=== PATIENT | female | born 1940 | race Caucasian/White ===

== ENCOUNTER 2016-09-18 14:18 | Inpatient (IN) | payer MEDICARE, OTHER ==
[~2016-09-18] VITALS: Ht 157.5 cm; Wt 45.4 kg
--- NOTE | 2016-09-18 14:25 | Emergency Room Report ---
History of Present Illness General Source: Patient, EMS Present Illness HPI The patient presents with dyspnea. This began last Saturday. She's been having trouble weekend. This morning her oxygen saturation was 60. She usually runs between 87 and 93 on oxygen. She does have a nebulizer and to get treated at this rehabilitation facility where she is. She denies any fevers or productive cough. She states that she received IV Lasix this morning. She has a history of COPD and CHF. She currently not taking prednisone. She believes this is the worst her breathing is ever been. She's never been intubated. Patient denies any chest pain, nausea, vomiting, diarrhea, dysuria. She has had back pain and neck pain chronic. Denies any anxiety or depression at this time. She's been moving her bowels normally. There is some bruising. When the daughter arrived she states the patient had DVT a year ago. Was in her legs. His request for a short period of time and he stopped it. She is allergic to contrast dye and as he was recently a different type of study was done in July that excluded on embolus. She had atrial fibrillation in the hospital felt to be related to albuterol. This has been treated with metoprolol. Also the daughter later claims that she is currently taking Xarelto due to the a fib. Allergies: Coded Allergies: IODINE (Verified Allergy, Unknown, 09/18/16) PENICILLINS (Unverified Allergy, Unknown, 09/18/16) SULFACETAMIDE (Verified Allergy, Unknown, 09/18/16) Uncoded Allergies: PENICILLIN (Allergy, Unknown, 09/18/16) Patient History Past Medical History: see triage record Past Surgical History: natanael, other - Back to me and nephrectomy Social History Narrative Home - with in home caretakers and daughter Reviewed Nursing Documentation: PMH: Agreed, PSxH: Agreed Review of Systems All Other Systems: negative except mentioned in HPI Physical Exam Vital Signs Date Time Temp Pulse Resp B/P Pulse Ox O2 Delivery O2 Flow Rate FiO2 09/18/16 14:19 98.8 61 18 119/57 95 Room Air Sp02 EP Interpretation: reviewed, abnormal - low, but normal for this patient - On O2 as interpreted by me General Appearance: no apparent distress, alert, GCS 15, Chronically Ill Head: normocephalic Eyes: bilateral eye PERRL, bilateral eye normal inspection ENT: moist mucus membranes Neck: supple Respiratory: decreased breath sounds, other - increased expiratory phase Cardiovascular #1: regular rate, rhythm, edema - trace bilat Cardiovascular #2: 2+ radial (R) Gastrointestinal: normal inspection, normal bowel sounds, non tender, no mass, non-distended Musculoskeletal: back normal, gait/station normal, normal range of motion, no calf tenderness Neurologic: alert, oriented x3, motor strength/tone normal, DTRs symmetric, sensory intact Psychiatric: mood/affect normal Skin: normal inspection, warm/dry, other - ecchymoses bilat legs Medical Decision Making Diagnostic Impression: Primary Impression: COPD exacerbation Additional Impressions: Hypoxia Cor pulmonale ER Course The patient with a history of COPD and CHF presents with dyspnea and hypoxia. Differential includes COPD exacerbation, pneumonia, congestive heart failure, acute myocardial infarction, PE amongst others. Emergent evaluation is undertaken with EKG, chest x-ray and labs. In addition to that should be treated with Solu-Medrol, breathing treatments. Will hold off on antibiotics and hydration as she does not appear septic and has history of congestive heart failure. Labs against acute infection. BNP normal. Non invasive vasc study negative (and daughter now reports on Xarelto for A fib) . Slightly improved, but etiology of worsened hypoxia unexplained. Admit med, Dr. Oakley. Laboratory Tests Test 09/18/16 14:30 09/18/16 17:30 09/19/16 04:35 09/19/16 13:10 White Blood Count 6.9 K/UL (4.8-10.8) 3.1 K/UL (4.8-10.8) #L 7.0 K/UL (4.8-10.8) # Red Blood Count 4.23 M/UL (4.20-5.40) 3.68 M/UL (4.20-5.40) L 4.10 M/UL (4.20-5.40) L Hemoglobin 12.0 G/DL (12.0-16.0) 10.6 G/DL (12.0-16.0) L 11.5 G/DL (12.0-16.0) L Hematocrit 38.5 % (37.0-47.0) 33.6 % (37.0-47.0) L 37.7 % (37.0-47.0) Mean Corpuscular Volume 91 FL (80-99) 91 FL (80-99) 92 FL (80-99) Mean Corpuscular Hemoglobin 28.3 PG (27.0-31.0) 28.9 PG (27.0-31.0) 28.0 PG (27.0-31.0) Mean Corpuscular Hemoglobin Concent 31.1 G/DL (32.0-36.0) L 31.6 G/DL (32.0-36.0) L 30.4 G/DL (32.0-36.0) L Red Cell Distribution Width 12.4 % (11.6-14.8) 12.4 % (11.6-14.8) 12.6 % (11.6-14.8) Platelet Count 245 K/UL (150-450) 225 K/UL (150-450) 237 K/UL (150-450) Mean Platelet Volume 10.1 FL (6.5-10.1) 10.6 FL (6.5-10.1) H 10.1 FL (6.5-10.1) Neutrophils (%) (Auto) 78.5 % (45.0-75.0) H % (45.0-75.0) % (45.0-75.0) Lymphocytes (%) (Auto) 9.1 % (20.0-45.0) L % (20.0-45.0) % (20.0-45.0) Monocytes (%) (Auto) 9.6 % (1.0-10.0) % (1.0-10.0) % (1.0-10.0) Eosinophils (%) (Auto) 0.8 % (0.0-3.0) % (0.0-3.0) % (0.0-3.0) Basophils (%) (Auto) 2.0 % (0.0-2.0) % (0.0-2.0) % (0.0-2.0) Prothrombin Time 10.4 SEC (9.30-11.50) Prothrombin Time INR 1.0 (0.9-1.1) PTT 31 SEC (23-33) Sodium Level 131 mEQ/L (135-145) L 139 mEQ/L (135-145) 132 mEQ/L (135-145) L Potassium Level 4.3 mEQ/L (3.4-4.9) 5.1 mEQ/L (3.4-4.9) H 4.0 mEQ/L (3.4-4.9) Chloride Level 84 mEQ/L (98-107) L 92 mEQ/L (98-107) L 83 mEQ/L (98-107) L Carbon Dioxide Level 39 mEQ/L (20-30) H 39 mEQ/L (20-30) H 35 mEQ/L (20-30) H Anion Gap 8 (5-15) 8 (5-15) 14 (5-15) Blood Urea Nitrogen 16 mg/dL (7-23) 17 mg/dL (7-23) 19 mg/dL (7-23) Creatinine 1.1 mg/dL (0.5-0.9) H 1.0 mg/dL (0.5-0.9) H 1.2 mg/dL (0.5-0.9) H Estimate Glomerular Filtration Rate mL/min (>60) mL/min (>60) mL/min (>60) Glucose Level 103 mg/dL (74-106) 132 mg/dL (74-106) H 240 mg/dL (74-106) #H Lactic Acid Level 1.40 mmol/L (0.66-2.22) Calcium Level 9.2 mg/dL (8.6-10.2) 9.3 mg/dL (8.6-10.2) 9.6 mg/dL (8.6-10.2) Total Bilirubin 0.4 mg/dL (0.0-1.2) Aspartate Amino Transferase (AST) 49 U/L (5-40) H Alanine Aminotransferase (ALT) 29 U/L (3-33) Alkaline Phosphatase 79 U/L (35-104) Total Creatine Kinase 43 U/L (26-140) Troponin I < 0.30 ng/mL (<=0.30) Pro-B-Type Natriuretic Peptide 406 pg/mL (0-450) Total Protein 6.8 g/dL (6.6-8.7) Albumin 3.9 g/dL (3.5-5.2) Globulin 2.9 g/dL Albumin/Globulin Ratio 1.3 (1.0-2.7) Urine Color Pale yellow Urine Appearance Clear Urine pH 7 (4.5-8.0) Urine Specific [place] 1.005 (1.005-1.035) Urine Protein Negative (NEGATIVE) Urine Glucose (UA) Negative (NEGATIVE) Urine Ketones Negative (NEGATIVE) Urine Occult Blood Negative (NEGATIVE) Urine Nitrite Negative (NEGATIVE) Urine Bilirubin Negative (NEGATIVE) Urine Urobilinogen Normal MG/DL (0.0-1.0) Urine Leukocyte Esterase Negative (NEGATIVE) Differential Total Cells Counted 100 100 Neutrophils % (Manual) 94 % (45-75) H 91 % (45-75) H Lymphocytes % (Manual) 4 % (20-45) L 2 % (20-45) L Monocytes % (Manual) 2 % (1-10) 6 % (1-10) Eosinophils % (Manual) 0 % (0-3) 0 % (0-3) Basophils % (Manual) 0 % (0-2) 0 % (0-2) Band Neutrophils 0 % (0-8) 1 % (0-8) Platelet Estimate Adequate Adequate Platelet Morphology Normal Normal Hypochromasia 1+ 1+ Red Blood Cell Morphology Anisocytosis 1+ EKG Diagnostic Results Rate: normal Rhythm: NSR ST Segments: no acute changes - RAD, LAE Rhythm Strip Diag. Results EP Interpretation: yes Rhythm: NSR, no PVC's, no ectopy Chest X-Ray Diagnostic Results EP Interpretation: Yes Findings: no effusion, no pneumothorax, other - COPD, increased avascularity, right major fissure with nodularities and also nodularities on the left mid lung zone. There is no right eczema scoliosis and also aortic calcifications Number of Views: 1 CT/MRI/US Diagnostic Results CT/MRI/US Diagnostic Results : Imaging Test Ordered: Non-invasive vasc Impression No DVT, variable flow near valve Last Vital Signs Date Time Temp Pulse Resp B/P Pulse Ox O2 Delivery O2 Flow Rate FiO2 09/19/16 16:52 63 18 100 Nasal Cannula 3.0 32 09/19/16 16:45 97.9 110/49 Status: improved Disposition: ADMITTED INPATIENT Condition: Serious Reynaldo Butcher M.D. Sep 18, 2016 14:25
[2016-09-18] MEDS ORDERED: Albuterol ud Inhalation HHN ONE (14:30)
[2016-09-18] MEDS ORDERED: Solu-MEDROL 125mg Inj IVP ONE (14:30)
[2016-09-18] MEDS ORDERED: Ipratropium 0.02% Inh Soln 2.5ml UD HHN ONE (14:30)
[2016-09-18] MEDS ORDERED: AMIODARONE HCL400 M1 ORAL (14:37)
[2016-09-18] MEDS ORDERED: SYMBICORT 16010.2 G1 IH (14:37)
[2016-09-18] MEDS ORDERED: ELIQUIS2.5 MG PO (14:37)
[2016-09-18] MEDS ORDERED: ATORVASTATIN CA20 MG ORAL (14:37)
[2016-09-18] MEDS ORDERED: BUSPAR10 MG ORAL (14:39)
[2016-09-18] MEDS ORDERED: CALCIUM 600 +1 EA14 PO (14:39)
[2016-09-18 14:40] VITALS: BP 105/38
[2016-09-18] MEDS ORDERED: PREMARIN42.5 GM VG (14:43)
[2016-09-18] MEDS ORDERED: VITAMIN D1000 UNI1 ORAL (14:43)
[2016-09-18] MEDS ORDERED: COLACE100 MG ORAL (14:43)
[2016-09-18] MEDS ORDERED: NEURONTIN100 MG ORAL (14:44)
[2016-09-18] MEDS ORDERED: MAG-OX 400400 MG ORAL (15:01)
[2016-09-18] MEDS ORDERED: MIRTAZAPINE15 MG ORAL (15:01)
[2016-09-18] MEDS ORDERED: OCEAN NASAL2 SPRAYS (15:01)
[2016-09-18] MEDS ORDERED: ZANTAC150 MG ORAL (15:01)
[2016-09-18] MEDS ORDERED: MULTIVITAMINS1 EAC8 ORAL (15:01)
[2016-09-18] MEDS ORDERED: CULTURELLE1 EACH ORAL (15:01)
[2016-09-18] MEDS ORDERED: ATROVENT HFA12.9 GM IH (15:01)
[2016-09-18] MEDS ORDERED: FUROSEMIDE20 M1 ORAL (15:02)
[2016-09-18] MEDS ORDERED: SPIRIVA18 MCG INH (15:02)
[2016-09-18 15:19] LABS: EOSINOPHILS % (AUTO) 0.8 % (0.0-3.0); LYMPHOCYTES % (AUTO) 9.1 % (20.0-45.0); MEAN CORPUSCULAR HEMOGLOBIN 28.3 PG (27.0-31.0); MEAN CORPUSCULAR HGB CONC 31.1 G/DL (32.0-36.0); MEAN CORPUSCULAR VOLUME 91 FL (80-99); MEAN PLATELET VOLUME 10.1 FL (6.5-10.1); MONOCYTES % (AUTO) 9.6 % (1.0-10.0); NEUTROPHILS % (AUTO) 78.5 % (45.0-75.0); PLATELET COUNT 245 K/UL (150-450); RED BLOOD COUNT 4.23 M/UL (4.20-5.40); RED CELL DISTRIBUTION WIDTH 12.4 % (11.6-14.8); WHITE BLOOD COUNT 6.9 K/UL (4.8-10.8)
[2016-09-18 15:20] LABS: ALANINE AMINOTRANSFERASE 29 U/L (3-33); ALBUMIN/GLOBULIN RATIO 1.3 (1.0-2.7); ANION GAP 8 (5-15); ASPARTATE AMINO TRANSFERASE 49 U/L (5-40); CALCIUM 9.2 mg/dL (8.6-10.2); CARBON DIOXIDE 39 mEQ/L (20-30); CHLORIDE 84 mEQ/L (98-107); CREATININE 1.1 mg/dL (0.5-0.9); HEMOLYSIS 9; POTASSIUM 4.3 mEQ/L (3.4-4.9); SODIUM 131 mEQ/L (135-145); TOTAL PROTEIN 6.8 g/dL (6.6-8.7); TROPONIN I < 0.30 ng/mL (<=0.30)
[2016-09-18 15:28] LABS: PROTHROMBIN TIME 10.4 SEC (9.30-11.50)
--- NOTE | 2016-09-18 16:01 | Diagnostic Imaging Report ---
Indication: COPD Technique: One view of the chest Comparison: none Findings: Linear interstitial markings are seen in the bilateral perihilar regions and bilateral lung bases. No definite acute infiltrates, effusions, or congestion. There is suggestion of hyperinflation of the upper lungs. Right axillary surgical clips are noted. The heart size is normal. There are cholecystectomy clips Impression: Evidence of COPD and likely perihilar and basilar scarring. No definite acute process
[2016-09-18 18:28] LABS: APPEARANCE,URINE CLEAR; KETONES,URINE NEGATIVE (NEGATIVE); LEUKOCYTE ESTERASE ,URINE NEGATIVE (NEGATIVE); NITRITE,URINE NEGATIVE (NEGATIVE); PH,URINE 7 (4.5-8.0); PROTEIN,URINE NEGATIVE (NEGATIVE); UROBILINOGEN,URINE NORMAL MG/DL (0.0-1.0)
[2016-09-18] MEDS ORDERED: DuoNeb 0.5-3(2.5)mg/3ml neb HHN PRN (20:45)
[2016-09-18 21:00] VITALS: BP 122/74
[2016-09-18] MEDS ORDERED: Norco 5mg/325mg tab ORAL PRN (21:00)
[2016-09-18] MEDS: Eliquis 2.5mg tablet ORAL SCH (21:25)
[2016-09-18] MEDS: Solu-MEDROL 125mg Inj IVP SCH (23:23)
[2016-09-19] VITALS (7 sets, daily range): BP systolic 91–123; BP diastolic 39–60
[2016-09-19] MEDS: DuoNeb 0.5-3(2.5)mg/3ml neb HHN SCH ×3 (03:14→11:47)
[2016-09-19] MEDS: Solu-MEDROL 125mg Inj IVP SCH ×2 (05:41→12:03)
[2016-09-19 07:18] LABS: MEAN CORPUSCULAR HEMOGLOBIN 28.9 PG (27.0-31.0); MEAN CORPUSCULAR HGB CONC 31.6 G/DL (32.0-36.0); MEAN CORPUSCULAR VOLUME 91 FL (80-99); MEAN PLATELET VOLUME 10.6 FL (6.5-10.1); PLATELET COUNT 225 K/UL (150-450); RED BLOOD COUNT 3.68 M/UL (4.20-5.40); RED CELL DISTRIBUTION WIDTH 12.4 % (11.6-14.8); WHITE BLOOD COUNT 3.1 K/UL (4.8-10.8)
[2016-09-19 07:30] LABS: ANION GAP 8 (5-15); CALCIUM 9.3 mg/dL (8.6-10.2); CARBON DIOXIDE 39 mEQ/L (20-30); CHLORIDE 92 mEQ/L (98-107); HEMOLYSIS 4; POTASSIUM 5.1 mEQ/L (3.4-4.9); SODIUM 139 mEQ/L (135-145)
[2016-09-19 07:49] LABS: BAND NEUTROPHILS % (MANUAL) 0 % (0-8); BASOPHILS % (MANUAL) 0 % (0-2); EOSINOPHILS % (MANUAL) 0 % (0-3); LYMPHOCYTES % (MANUAL) 4 % (20-45); NEUTROPHILS % (MANUAL) 94 % (45-75); PLATELET ESTIMATE ADEQUATE; PLATELET MORPHOLOGY NORMAL; TOTAL CELLS COUNTED 100
[2016-09-19 07:50] LABS: HYPOCHROMASIA 1+
[2016-09-19] MEDS: BusPIRone 10mg Tab ORAL SCH ×3 (08:56→17:22)
[2016-09-19] MEDS: Multivitamin w/Minerals tab ORAL SCH (08:57)
[2016-09-19] MEDS: Lactobacillus-GG tablet ORAL SCH (08:57)
[2016-09-19] MEDS: Eliquis 2.5mg tablet ORAL SCH ×2 (08:57→21:35)
[2016-09-19] MEDS: Magnesium Oxide 400mg tab ORAL SCH (08:57)
[2016-09-19] MEDS: Vitamin D 1000 IU Tab ORAL SCH (08:57)
[2016-09-19] MEDS ORDERED: Premarin Vag Cream 3gm VAGIN SCH (09:00)
[2016-09-19] MEDS: Ocean Nasal Spray 45ml NASAL SCH ×2 (11:05→17:22)
--- NOTE | 2016-09-19 13:11 | History & Physical ---
History and Physical History & Physicial Dictated for Int Med-Dr Oakley no. [id number]. EVERARDO GARCIA Sep 19, 2016 13:11
[2016-09-19] MEDS ORDERED: Ipratropium 0.02% Inh Soln 2.5ml UD HHN SCH (13:15)
[2016-09-19 13:36] LABS: ANION GAP 14 (5-15); CALCIUM 9.6 mg/dL (8.6-10.2); CARBON DIOXIDE 35 mEQ/L (20-30); CHLORIDE 83 mEQ/L (98-107); CREATININE 1.2 mg/dL (0.5-0.9); HEMOLYSIS 1; SODIUM 132 mEQ/L (135-145)
[2016-09-19 13:48] LABS: MEAN CORPUSCULAR HGB CONC 30.4 G/DL (32.0-36.0); MEAN CORPUSCULAR VOLUME 92 FL (80-99); MEAN PLATELET VOLUME 10.1 FL (6.5-10.1); PLATELET COUNT 237 K/UL (150-450); RED CELL DISTRIBUTION WIDTH 12.6 % (11.6-14.8)
[2016-09-19 14:10] LABS: ANISOCYTOSIS 1+; BAND NEUTROPHILS % (MANUAL) 1 % (0-8); BASOPHILS % (MANUAL) 0 % (0-2); EOSINOPHILS % (MANUAL) 0 % (0-3); HYPOCHROMASIA 1+; LYMPHOCYTES % (MANUAL) 2 % (20-45); NEUTROPHILS % (MANUAL) 91 % (45-75); PLATELET ESTIMATE ADEQUATE; PLATELET MORPHOLOGY NORMAL; TOTAL CELLS COUNTED 100
--- NOTE | 2016-09-19 14:32 | Cardiac Electrophysiology PN ---
Subjective Subjective [id number] Objective Last 24 Hour Vital Signs Date Time Temp Pulse Resp B/P Pulse Ox O2 Delivery O2 Flow Rate FiO2 09/19/16 12:33 98.1 79 19 91/56 94 Nasal Cannula 3.0 09/19/16 11:53 62 18 100 3.0 09/19/16 11:44 68 18 Nasal Cannula 3.0 09/19/16 08:46 97.8 64 20 103/53 93 Nasal Cannula 3.0 09/19/16 07:48 75 22 Nasal Cannula 3.0 09/19/16 07:44 75 18 97 3.0 09/19/16 07:36 Nasal Cannula 2.0 28 09/19/16 07:36 73 18 92 Nasal Cannula 3.0 09/19/16 07:35 92 Nasal Cannula 2.0 09/19/16 04:32 71 102/52 09/19/16 04:00 98.3 65 19 99/39 98 Room Air 3.0 09/19/16 03:20 59 18 97 3.0 09/19/16 03:17 60 18 93 Nasal Cannula 3.0 09/19/16 00:00 97.7 55 19 96/45 Nasal Cannula 2.5 09/18/16 21:28 Nasal Cannula 09/18/16 21:27 Nasal Cannula 09/18/16 21:27 Nasal Cannula 09/18/16 21:26 93 Nasal Cannula 2.0 09/18/16 21:26 Nasal Cannula 09/18/16 21:00 97.9 61 18 122/74 98 Nasal Cannula 2.5 09/18/16 21:00 Nasal Cannula 2.0 28 09/18/16 16:51 98.8 57 16 94/37 96 Nasal Cannula 2.0 09/18/16 15:07 71 16 97 2.0 28 09/18/16 15:00 69 16 97 Nasal Cannula 2.0 97 09/18/16 15:00 28 09/18/16 14:40 61 18 Nasal Cannula 2.0 09/18/16 14:40 62 18 105/38 99 Nasal Cannula 2.0 Intake and Output 09/18/16 09/19/16 18:59 06:59 Intake Total 0 ml Balance 0 ml Intake Oral 0 ml # Voids 1 Laboratory Tests Test 09/18/16 17:30 09/19/16 04:35 09/19/16 13:10 Urine Color Pale yellow Urine Appearance Clear Urine pH 7 (4.5-8.0) Urine Specific [place] 1.005 (1.005-1.035) Urine Protein Negative (NEGATIVE) Urine Glucose (UA) Negative (NEGATIVE) Urine Ketones Negative (NEGATIVE) Urine Occult Blood Negative (NEGATIVE) Urine Nitrite Negative (NEGATIVE) Urine Bilirubin Negative (NEGATIVE) Urine Urobilinogen Normal MG/DL (0.0-1.0) Urine Leukocyte Esterase Negative (NEGATIVE) White Blood Count 3.1 K/UL (4.8-10.8) #L 7.0 K/UL (4.8-10.8) # Red Blood Count 3.68 M/UL (4.20-5.40) L 4.10 M/UL (4.20-5.40) L Hemoglobin 10.6 G/DL (12.0-16.0) L 11.5 G/DL (12.0-16.0) L Hematocrit 33.6 % (37.0-47.0) L 37.7 % (37.0-47.0) Mean Corpuscular Volume 91 FL (80-99) 92 FL (80-99) Mean Corpuscular Hemoglobin 28.9 PG (27.0-31.0) 28.0 PG (27.0-31.0) Mean Corpuscular Hemoglobin Concent 31.6 G/DL (32.0-36.0) L 30.4 G/DL (32.0-36.0) L Red Cell Distribution Width 12.4 % (11.6-14.8) 12.6 % (11.6-14.8) Platelet Count 225 K/UL (150-450) 237 K/UL (150-450) Mean Platelet Volume 10.6 FL (6.5-10.1) H 10.1 FL (6.5-10.1) Neutrophils (%) (Auto) % (45.0-75.0) % (45.0-75.0) Lymphocytes (%) (Auto) % (20.0-45.0) % (20.0-45.0) Monocytes (%) (Auto) % (1.0-10.0) % (1.0-10.0) Eosinophils (%) (Auto) % (0.0-3.0) % (0.0-3.0) Basophils (%) (Auto) % (0.0-2.0) % (0.0-2.0) Differential Total Cells Counted 100 100 Neutrophils % (Manual) 94 % (45-75) H 91 % (45-75) H Lymphocytes % (Manual) 4 % (20-45) L 2 % (20-45) L Monocytes % (Manual) 2 % (1-10) 6 % (1-10) Eosinophils % (Manual) 0 % (0-3) 0 % (0-3) Basophils % (Manual) 0 % (0-2) 0 % (0-2) Band Neutrophils 0 % (0-8) 1 % (0-8) Platelet Estimate Adequate Adequate Platelet Morphology Normal Normal Hypochromasia 1+ 1+ Sodium Level 139 mEQ/L (135-145) 132 mEQ/L (135-145) L Potassium Level 5.1 mEQ/L (3.4-4.9) H 4.0 mEQ/L (3.4-4.9) Chloride Level 92 mEQ/L (98-107) L 83 mEQ/L (98-107) L Carbon Dioxide Level 39 mEQ/L (20-30) H 35 mEQ/L (20-30) H Anion Gap 8 (5-15) 14 (5-15) Blood Urea Nitrogen 17 mg/dL (7-23) 19 mg/dL (7-23) Creatinine 1.0 mg/dL (0.5-0.9) H 1.2 mg/dL (0.5-0.9) H Estimat Glomerular Filtration Rate mL/min (>60) mL/min (>60) Glucose Level 132 mg/dL (74-106) H 240 mg/dL (74-106) #H Calcium Level 9.3 mg/dL (8.6-10.2) 9.6 mg/dL (8.6-10.2) Red Blood Cell Morphology Anisocytosis 1+ TODD HAINES Sep 19, 2016 14:32
--- NOTE | 2016-09-19 15:36 | Cardiology Report ---
APPROVED REPORT EKG Measurement Heart [id number] Normal sinus rhythm Right atrial enlargement Rightward axis Pulmonary disease pattern Abnormal ECG
--- NOTE | 2016-09-19 16:21 | Consultation ---
History of Present Illness General Chief Complaint: Dyspnea/Respdistress Present Illness Allergies: Coded Allergies: IODINE (Verified Allergy, Unknown, 09/18/16) PENICILLINS (Unverified Allergy, Unknown, 09/18/16) SULFACETAMIDE (Verified Allergy, Unknown, 09/18/16) Uncoded Allergies: PENICILLIN (Allergy, Unknown, 09/18/16) Medication History Scheduled Amiodarone Hcl* (Amiodarone Hcl*), 200 MG ORAL EVERY 12 HOURS, (Reported) Apixaban (Eliquis), 2.5 MG PO BID, (Reported) Atorvastatin Calcium* (Atorvastatin Calcium*), 10 MG ORAL BEDTIME, (Reported) Budesonide/Formoterol Fumarate (Symbicort 160-4.5 Mcg Inhaler), 2 PUFF IH BID, ( Reported) Buspirone Hcl* (Buspar*), 15 MG ORAL THREE TIMES A DAY, (Reported) Calcium Carbonate/Vitamin D3 (Calcium 600 + Vit D3 Tablet), 1 EACH PO DAILY, ( Reported) Cholecalciferol (Vitamin D3)* (Vitamin D*), 1,000 UNIT ORAL DAILY, (Reported) Estrogens Conjugated (Premarin), 0.5 GM VG THREE TIMES A WEEK, (Reported) Furosemide* (Lasix*), 20 MG ORAL EVERY OTHER DAY, (Reported) Lactobacillus Rhamnosus Gg* (Culturelle*), 1 CAP ORAL DAILY, (Reported) Magnesium Oxide (Magnesium Oxide), 400 MG ORAL DAILY, (Reported) Mirtazapine* (Remeron*), 15 MG ORAL BEDTIME, (Reported) Multivitamin With Minerals (Multivitamins With Minerals*), 1 TAB ORAL DAILY, ( Reported) Sodium Chloride (Beltrami), 2 SPRAYS NA BID, (Reported) Tiotropium [place]* (Spiriva*), 1 PUFF INH DAILY, (Reported) Scheduled PRN Docusate Sodium* (Colace*), 100 MG ORAL TWICE A DAY PRN for Constipation, ( Reported) Gabapentin* (Neurontin*), 100 MG ORAL BID PRN for For Anxiety, (Reported) Ipratropium [place] (Atrovent Hfa), 12.9 GM IH EVERY 4 HOURS PRN for Shortness of breath, (Reported) Ranitidine Hcl* (Zantac*), 150 MG ORAL DAILY PRN for heartburn, (Reported) Patient History Healthcare decision maker CECIL CASTLE (DAUGHTER) [phone] Resuscitation status Advanced Directive on File Physical Exam Last 24 Hour Vital Signs Date Time Temp Pulse Resp B/P Pulse Ox O2 Delivery O2 Flow Rate FiO2 09/19/16 12:33 98.1 79 19 91/56 94 Nasal Cannula 3.0 09/19/16 11:53 62 18 100 3.0 09/19/16 11:44 68 18 Nasal Cannula 3.0 09/19/16 08:46 97.8 64 20 103/53 93 Nasal Cannula 3.0 09/19/16 07:48 75 22 Nasal Cannula 3.0 09/19/16 07:44 75 18 97 3.0 09/19/16 07:36 Nasal Cannula 2.0 28 09/19/16 07:36 73 18 92 Nasal Cannula 3.0 09/19/16 07:35 92 Nasal Cannula 2.0 09/19/16 04:32 71 102/52 09/19/16 04:00 98.3 65 19 99/39 98 Room Air 3.0 09/19/16 03:20 59 18 97 3.0 09/19/16 03:17 60 18 93 Nasal Cannula 3.0 09/19/16 00:00 97.7 55 19 96/45 Nasal Cannula 2.5 09/18/16 21:28 Nasal Cannula 09/18/16 21:27 Nasal Cannula 09/18/16 21:27 Nasal Cannula 09/18/16 21:26 93 Nasal Cannula 2.0 09/18/16 21:26 Nasal Cannula 09/18/16 21:00 97.9 61 18 122/74 98 Nasal Cannula 2.5 09/18/16 21:00 Nasal Cannula 2.0 28 09/18/16 16:51 98.8 57 16 94/37 96 Nasal Cannula 2.0 Intake and Output 09/18/16 09/19/16 19:00 07:00 Intake Total 0 ml Balance 0 ml Intake Oral 0 ml # Voids 1 Laboratory Tests Test 09/18/16 17:30 09/19/16 04:35 09/19/16 13:10 Urine Color Pale yellow Urine Appearance Clear Urine pH 7 (4.5-8.0) Urine Specific [place] 1.005 (1.005-1.035) Urine Protein Negative (NEGATIVE) Urine Glucose (UA) Negative (NEGATIVE) Urine Ketones Negative (NEGATIVE) Urine Occult Blood Negative (NEGATIVE) Urine Nitrite Negative (NEGATIVE) Urine Bilirubin Negative (NEGATIVE) Urine Urobilinogen Normal MG/DL (0.0-1.0) Urine Leukocyte Esterase Negative (NEGATIVE) White Blood Count 3.1 K/UL (4.8-10.8) #L 7.0 K/UL (4.8-10.8) # Red Blood Count 3.68 M/UL (4.20-5.40) L 4.10 M/UL (4.20-5.40) L Hemoglobin 10.6 G/DL (12.0-16.0) L 11.5 G/DL (12.0-16.0) L Hematocrit 33.6 % (37.0-47.0) L 37.7 % (37.0-47.0) Mean Corpuscular Volume 91 FL (80-99) 92 FL (80-99) Mean Corpuscular Hemoglobin 28.9 PG (27.0-31.0) 28.0 PG (27.0-31.0) Mean Corpuscular Hemoglobin Concent 31.6 G/DL (32.0-36.0) L 30.4 G/DL (32.0-36.0) L Red Cell Distribution Width 12.4 % (11.6-14.8) 12.6 % (11.6-14.8) Platelet Count 225 K/UL (150-450) 237 K/UL (150-450) Mean Platelet Volume 10.6 FL (6.5-10.1) H 10.1 FL (6.5-10.1) Neutrophils (%) (Auto) % (45.0-75.0) % (45.0-75.0) Lymphocytes (%) (Auto) % (20.0-45.0) % (20.0-45.0) Monocytes (%) (Auto) % (1.0-10.0) % (1.0-10.0) Eosinophils (%) (Auto) % (0.0-3.0) % (0.0-3.0) Basophils (%) (Auto) % (0.0-2.0) % (0.0-2.0) Differential Total Cells Counted 100 100 Neutrophils % (Manual) 94 % (45-75) H 91 % (45-75) H Lymphocytes % (Manual) 4 % (20-45) L 2 % (20-45) L Monocytes % (Manual) 2 % (1-10) 6 % (1-10) Eosinophils % (Manual) 0 % (0-3) 0 % (0-3) Basophils % (Manual) 0 % (0-2) 0 % (0-2) Band Neutrophils 0 % (0-8) 1 % (0-8) Platelet Estimate Adequate Adequate Platelet Morphology Normal Normal Hypochromasia 1+ 1+ Sodium Level 139 mEQ/L (135-145) 132 mEQ/L (135-145) L Potassium Level 5.1 mEQ/L (3.4-4.9) H 4.0 mEQ/L (3.4-4.9) Chloride Level 92 mEQ/L (98-107) L 83 mEQ/L (98-107) L Carbon Dioxide Level 39 mEQ/L (20-30) H 35 mEQ/L (20-30) H Anion Gap 8 (5-15) 14 (5-15) Blood Urea Nitrogen 17 mg/dL (7-23) 19 mg/dL (7-23) Creatinine 1.0 mg/dL (0.5-0.9) H 1.2 mg/dL (0.5-0.9) H Estimat Glomerular Filtration Rate mL/min (>60) mL/min (>60) Glucose Level 132 mg/dL (74-106) H 240 mg/dL (74-106) #H Calcium Level 9.3 mg/dL (8.6-10.2) 9.6 mg/dL (8.6-10.2) Red Blood Cell Morphology Anisocytosis 1+ Height (Feet): 5 Height (Inches): 2.00 Weight (Pounds): 100 Medications Current Medications Medications (Trade) Dose Ordered Sig/Maddy Route PRN Reason Start Time Stop Time Status Last Admin Dose Admin Acetaminophen/ Hydrocodone Bitart ([place] 5/325) 1 tab Q4H PRN ORAL Moderate Pain (Pain Scale 4-6) 09/18/16 21:00 09/25/16 20:59 Amiodarone HCl (Cordarone) 200 mg DAILY ORAL 09/19/16 15:00 10/19/16 14:59 Apixaban (Eliquis) 2.5 mg Q12HR ORAL 09/18/16 21:00 10/18/16 20:59 09/19/16 08:57 Atorvastatin Calcium (Lipitor) 10 mg BEDTIME ORAL 09/18/16 21:00 10/18/16 20:59 09/18/16 21:25 Budesonide/ Formoterol Fumarate (Symbicort 160/ 4.5) 2 puff Q12HR INH 09/19/16 14:00 10/19/16 13:59 Buspirone HCl (Buspar) 15 mg THREE TIMES A DAY ORAL 09/19/16 09:00 10/19/16 08:59 09/19/16 13:08 Estrogens Conjugated (Premarin Vag Cream W/JUAN) 1 applic THREE TIMES A WEEK VAGIN 09/21/16 09:00 10/21/16 08:59 Furosemide (Lasix) 20 mg EVERY OTHER DAY ORAL 09/20/16 09:00 10/20/16 08:59 Gabapentin (Neurontin) 100 mg BID PRN ORAL NEUROPATHIC PAIN 09/18/16 21:00 10/18/16 20:59 09/19/16 09:48 Ipratropium [place] (Atrovent) 500 mcg Q6HRT HHN 09/19/16 13:15 09/24/16 13:14 Lactobacillus Acidophilus (Culturelle) 1 tab DAILY ORAL 09/19/16 09:00 10/19/16 08:59 09/19/16 08:57 Magnesium Oxide (Mag-Ox 400mg) 400 mg DAILY ORAL 09/19/16 09:00 10/19/16 08:59 09/19/16 08:57 Methylprednisolone Sodium Succinate (Solu-MEDROL) 60 mg EVERY 6 HOURS IVP 09/19/16 00:00 10/19/16 00:00 09/19/16 12:03 Mirtazapine (Remeron) 15 mg BEDTIME ORAL 09/18/16 21:00 10/18/16 20:59 09/18/16 21:25 Multivitamins Therapeutic (Therapeutic Multivitamin) 1 ea DAILY ORAL 09/19/16 09:00 10/19/16 08:59 09/19/16 08:57 Ranitidine HCl (Zantac) 150 mg BEDTIME ORAL 4/11/17 21:00 10/18/16 20:59 09/18/16 21:29 Sodium Chloride (Beltrami Nasal [place]) 2 spray BID NASAL 09/19/16 09:00 10/19/16 08:59 09/19/16 11:05 Tiotropium [place] (Spiriva Inhaler) 1 puff DAILY INH 09/18/16 22:00 10/18/16 21:59 09/19/16 07:47 Vitamin D (Vitamin D) 1,000 intlu DAILY ORAL 09/19/16 09:00 10/19/16 08:59 09/19/16 08:57 SABRINA GOLDBERG Sep 19, 2016 16:21
[2016-09-19] MEDS: Amiodarone 200mg tab ORAL SCH (16:29)
[2016-09-19] MEDS ORDERED: Promethazine/Codeine 5ml UD ORAL PRN (16:30)
[2016-09-19] MEDS: Ipratropium 0.02% Inh Soln 2.5ml UD HHN SCH ×3 (16:50→23:41)
--- NOTE | 2016-09-19 18:46 | Neurology Progress Note ---
Objective Physical Exam Last Vital Signs Date Time Temp Pulse Resp B/P Pulse Ox O2 Delivery O2 Flow Rate FiO2 09/19/16 16:52 63 18 100 Nasal Cannula 3.0 32 09/19/16 16:45 97.9 110/49 Laboratory Tests Test 09/19/16 04:35 09/19/16 13:10 White Blood Count 3.1 K/UL (4.8-10.8) #L 7.0 K/UL (4.8-10.8) # Red Blood Count 3.68 M/UL (4.20-5.40) L 4.10 M/UL (4.20-5.40) L Hemoglobin 10.6 G/DL (12.0-16.0) L 11.5 G/DL (12.0-16.0) L Hematocrit 33.6 % (37.0-47.0) L 37.7 % (37.0-47.0) Mean Corpuscular Volume 91 FL (80-99) 92 FL (80-99) Mean Corpuscular Hemoglobin 28.9 PG (27.0-31.0) 28.0 PG (27.0-31.0) Mean Corpuscular Hemoglobin Concent 31.6 G/DL (32.0-36.0) L 30.4 G/DL (32.0-36.0) L Red Cell Distribution Width 12.4 % (11.6-14.8) 12.6 % (11.6-14.8) Platelet Count 225 K/UL (150-450) 237 K/UL (150-450) Mean Platelet Volume 10.6 FL (6.5-10.1) H 10.1 FL (6.5-10.1) Neutrophils (%) (Auto) % (45.0-75.0) % (45.0-75.0) Lymphocytes (%) (Auto) % (20.0-45.0) % (20.0-45.0) Monocytes (%) (Auto) % (1.0-10.0) % (1.0-10.0) Eosinophils (%) (Auto) % (0.0-3.0) % (0.0-3.0) Basophils (%) (Auto) % (0.0-2.0) % (0.0-2.0) Differential Total Cells Counted 100 100 Neutrophils % (Manual) 94 % (45-75) H 91 % (45-75) H Lymphocytes % (Manual) 4 % (20-45) L 2 % (20-45) L Monocytes % (Manual) 2 % (1-10) 6 % (1-10) Eosinophils % (Manual) 0 % (0-3) 0 % (0-3) Basophils % (Manual) 0 % (0-2) 0 % (0-2) Band Neutrophils 0 % (0-8) 1 % (0-8) Platelet Estimate Adequate Adequate Platelet Morphology Normal Normal Hypochromasia 1+ 1+ Sodium Level 139 mEQ/L (135-145) 132 mEQ/L (135-145) L Potassium Level 5.1 mEQ/L (3.4-4.9) H 4.0 mEQ/L (3.4-4.9) Chloride Level 92 mEQ/L (98-107) L 83 mEQ/L (98-107) L Carbon Dioxide Level 39 mEQ/L (20-30) H 35 mEQ/L (20-30) H Anion Gap 8 (5-15) 14 (5-15) Blood Urea Nitrogen 17 mg/dL (7-23) 19 mg/dL (7-23) Creatinine 1.0 mg/dL (0.5-0.9) H 1.2 mg/dL (0.5-0.9) H Estimat Glomerular Filtration Rate mL/min (>60) mL/min (>60) Glucose Level 132 mg/dL (74-106) H 240 mg/dL (74-106) #H Calcium Level 9.3 mg/dL (8.6-10.2) 9.6 mg/dL (8.6-10.2) Red Blood Cell Morphology Anisocytosis 1+ Impression/Recommendations Problems: (1) tremor, postural probably 2/2 polypharmacy/steroids (2) COPD exacerbation Status: stable Recommendations # [id number] NANCY JONES Sep 19, 2016 18:46
--- NOTE | 2016-09-19 20:48 | History and Physical Report ---
DATE OF ADMISSION: 09/18/2016 CHIEF COMPLAINT: . The patient is a 76-year-old white female with history of chronic obstructive pulmonary disease presents with chief complaint of shortness of breath. HISTORY OF PRESENT ILLNESS: The patient was admitted to [facility] in August 2016. The patient had new onset atrial fibrillation. The patient was discharged to rehabilitation center at [place]. The patient has a three year history of chronic obstructive pulmonary disease. The patient is on continuous home oxygen. The patient apparently began to experience shortness of breath yesterday at rehabilitation at [place]. The patient was found to have oxygen saturation in the 60s. The patient was transported to [place] emergency room. The patient was admitted for acute on chronic, chronic obstructive pulmonary disease exacerbation. PAST MEDICAL HISTORY: CONSTITUTIONAL: The patient denies weight loss or gain. The patient denies fevers or chills. HEENT: The patient denies ear or throat pain. CARDIOVASCULAR: The patient denies palpitations or chest pain. CHEST: The patient complains of shortness of breath as above. The patient denies wheezes. ABDOMEN: The patient denies nausea, vomiting, diarrhea, or constipation. GENITOURINARY: The patient denies dysuria or increased frequency of urination. NEUROMUSCULAR: The patient denies seizures or generalized weakness. PAST MEDICAL HISTORY: Significant for: 1. Chronic obstructive pulmonary disease with emphysema. 2. Atrial fibrillation. 3. Hypothyroidism. 4. History of right breast cancer. 5. History of right renal cancer. PAST SURGICAL HISTORY: Significant for: 1. Right breast lumpectomy. 2. Right nephrectomy. 3. Thyroidectomy in 70s. 4. Cholecystectomy in 2009. CURRENT MEDICATIONS: 1. Amiodarone 200 mg one tablet p.o. twice daily. 2. Eliquis 2.5 mg one tablet p.o. twice daily. 3. Lipitor 10 mg one tablet p.o. daily. 4. Symbicort 160/4.5 two puffs p.o. twice daily. 5. BuSpar 10 mg one tablet p.o. three times daily. 6. Calcium carbonate with vitamin D one tablet p.o. daily. 7. Vitamin D 1000 units one tablet p.o. daily. 8. Colace 100 mg one tablet p.o. twice daily. 9. Premarin vaginal cream 0.5 grams intravaginally three times weekly. 10. Lasix 20 mg one tablet p.o. every other day. 11. Neurontin 100 mg one tablet p.o. twice daily. 12. Atrovent 0.5 mg nebulized every four hours as needed. 13. Metoprolol 25 mg half tablet p.o. twice daily. 14. Remeron 30 mg one tablet p.o. at bedtime. 15. Multivitamin daily. 16. Zantac 150 mg one tablet p.o. daily. 17. Spiriva 18 mcg one puff daily. ALLERGIES: 1. Iodine contrast dye. 2. Sulfa drugs. 3. Penicillin. SOCIAL HISTORY: The patient is a . The patient has two grown children, who are present during the interview. The patient denies tobacco use, having quit in 2004. The patient admits to occasional alcohol use. PHYSICAL EXAMINATION: VITAL SIGNS: Temperature 97.8, respirations 20, pulse 64, blood pressure 105/53. GENERAL: The patient is a thin-appearing elderly female, in no apparent distress. HEENT: Eyes are pupils are equal and responsive to light and accommodation. Extraocular movements are intact. NECK: Supple without lymphadenopathy. CHEST: Lungs are clear to auscultation bilaterally with poor air movement at bilateral bases. Otherwise, clear to auscultation without wheezes or rales. CARDIOVASCULAR: Regular rate S1 and S2 are normal without murmurs, rubs, or gallops. ABDOMEN: Soft, nontender, and nondistended. Positive bowel sounds. No evidence of hepatosplenomegaly. Currently, no rebound or guarding. EXTREMITIES: Negative for clubbing, cyanosis, or edema. RECTAL: Refused. GENITALIA: Refused. NEUROLOGIC: Cranial nerves II to XII are grossly intact without focal deficits. Motor strength is 5/5 bilaterally. Deep tendon reflexes are 2+ plantar. LABORATORY STUDIES: WBC 6.9, hemoglobin 12.0, hematocrit 38.5, and platelets 235,000. Sodium 131, potassium 4.3, chloride 84, CO2 39, BUN 16, creatinine 1.1, glucose 103. Chest x-ray revealed hyperinflation of lungs consistent with chronic obstructive pulmonary disease however no acute disease. ASSESSMENT: This is a 76-year-old white female. 1. Chronic obstructive pulmonary disease, acute exacerbation. 2. Hypoxia. 3. Shortness of breath. 4. Atrial fibrillation. 5. Hypothyroidism. 6. History of breast cancer. 7. History of kidney cancer. TREATMENT: 1. Hypoxia/chronic obstructive pulmonary disease acute exacerbation. A Pulmonary consultation obtained with Dr. Yamil Morel. Continue Symbicort, Spiriva, and Atrovent as above. The patient has been started on intravenous Solu-Medrol. We will follow recommendations of Pulmonary. 2. Atrial fibrillation. Cardiology consultation obtained with Dr. Robert Moraes. The patient is currently on amiodarone. The patient is currently in sinus rhythm. 3. Hypothyroidism, the patient is currently not on thyroid replacement therapy. Minh Delgado M.D. DR: Claudette JOB#: [id number] CC:
[2016-09-19] MEDS: Theophylline ER 100mg ORAL SCH (21:32)
[2016-09-19] MEDS: Solu-MEDROL 40mg Inj IVP SCH (21:35)
--- NOTE | 2016-09-19 21:48 | Consultation ---
DATE OF CONSULTATION: 09/19/2016 CARDIOLOGY CONSULTATION CONSULTING PHYSICIAN: Robert Moraes M.D. REFERRING PHYSICIAN: Mihn Delgado M.D. REASON FOR CONSULTATION: Management of hypertension and atrial fibrillation as well as DVT. HISTORY OF PRESENT ILLNESS: The patient is a 76-year-old lady with history of hypertension, COPD and chronic diastolic congestive heart failure as well as paroxysmal atrial fibrillation as well as history of DVT and PE and history of chronic kidney disease and breast cancer on chemotherapy and radiation, who is usually followed up by her manager manufacturing and wildlife officer Dr. Ney Beckford. The patient presented to the emergency room with increasing shortness of breath. The patient was usually on 24-hour oxygen and home oxygen saturation was 60% even though usually she has been 87 and 93. The patient has been intubated and was also seen at the [facility] on 08/17/2016 for exacerbation of COPD. The patient was admitted and a Cardiology consultation was obtained for further evaluation and management. PAST MEDICAL HISTORY: 1. Hypertension. 2. Paroxysmal atrial fibrillation. 3. Diastolic congestive heart failure. 4. Severe chronic obstructive pulmonary disease on home oxygen. 5. Diabetes. 6. Chronic kidney disease. 7. Coronary artery disease. 8. History of pulmonary embolism and deep vein thrombosis. 9. History of inferior vena cava filter. 10. History of breast cancer on chemotherapy. 11. Hypothyroidism. 12. Hyperlipidemia. 13. Depression. MEDICATIONS: At the time of discharge from [facility] included amiodarone 200 mg b.i.d., Eliquis 2.5 mg b.i.d., Lipitor, Lasix, Atrovent, metoprolol 12.5 mg b.i.d., prednisone and Spiriva. FAMILY HISTORY: Noncontributory. SOCIAL HISTORY: She does not smoke or drink alcohol. REVIEW OF SYSTEMS: Review of systems was thoroughly performed and was negative other than what was mentioned in the history of present illness. PHYSICAL EXAMINATION: VITAL SIGNS: Show blood pressure of 91/56, pulse 59, and respirations 19. HEAD AND NECK: Shows mild JVD. LUNGS: Coarse rhonchi. CARDIOVASCULAR: Shows irregular S1 and S2 with no gallop or murmur. ABDOMEN: Soft and nontender. EXTREMITIES: There is a 1+ lower extremity edema. LABORATORY DATA: Her labs shows white count of 7, hemoglobin 11.5, hematocrit 37.7, and platelet count 237,000. Sodium 132, potassium 4.0, BUN 19, creatinine 1.2, and glucose of 240. Her INR is 1. ASSESSMENT AND PLAN: 1. Paroxysmal atrial fibrillation. We will get the EKG again for confirmation. She does not have chest pain or palpitation or tachycardia. The patient is already on Eliquis 2.5 mg b.i.d. that will be continued. As an outpatient, she was on amiodarone 200 mg b.i.d. and I will decrease to 200 mg daily at this time. The patient was also on low-dose beta-marleen at a in view of her chronic obstructive pulmonary disease exacerbation, this patient gets more tachycardic. We will also get an echocardiogram as well as EKG. 2. Diastolic congestive heart failure, on Lasix 20 mg every other day. The patient has exacerbation of chronic obstructive pulmonary disease. The patient is on oxygen and Atrovent and Symbicort as well as Solu-Medrol. 3. Hyperlipidemia, on Lipitor. 4. Lower extremity deep vein thrombosis. Continue on Eliquis at this time. Thank you very much, Dr. Delgado, for allowing me to participate in the care of this patient. Please do not hesitate to contact me for any questions regarding my evaluation. Robert Moraes M.D. DR: JORGE A JOB#: [id number] CC:
[2016-09-20] VITALS (7 sets, daily range): BP systolic 107–119; BP diastolic 54–62
--- NOTE | 2016-09-20 00:38 | Consultation ---
DATE OF CONSULTATION: 09/19/2016 NEUROLOGICAL CONSULTATION CONSULTING PHYSICIAN: Chris Patel M.D. REQUESTING PHYSICIAN: Reynaldo Oakley M.D. HISTORY OF PRESENT ILLNESS: This is a 76-year-old female seen in neurological consultation to evaluate the new onset of intermittent irregular jerking in her upper and predominantly lower extremities affecting her ambulation causing her fear of fall. The patient was admitted after having few days of dyspnea with oxygen saturation down to 60. On admission, she continued to have pain in upper back, neck, and low back. Her vital signs were stable. Blood pressure 119/57 and temperature 98.8 degrees. Her initial studies included CBC, which were unremarkable. Coagulation panel was normal with INR 1.0. Urinalysis was normal and chemistry panel with a carbon dioxide of 39. Creatinine is 1.1. Normal troponin and BNP of 406. Chest x-ray with evidence of COPD and perihilar basilar scarring, but no evidence of acute process. PAST MEDICAL HISTORY: The patient is suffering from long-term COPD, CHF, history of paroxysmal atrial fibrillation, and history of depression. MEDICATIONS: Her treatment prior to admission included amiodarone, Eliquis, atorvastatin, BuSpar mg t.i.d., vitamin D, Colace, Premarin, Lasix, small dose of Neurontin 100 mg, Atrovent, magnesium oxide, Remeron, ranitidine, and Spiriva. ALLERGIES: Penicillin, iodine, and sulfacetamide. FAMILY HISTORY: Noncontributory. SOCIAL HISTORY: The patient is a resident of a rehabilitation center. She is a . She has an adult son, who is now present during this examination. No alcohol. No drug abuse. Nonsmoker. REVIEW OF SYSTEMS: Intermittent tremors in her both upper and lower extremities, predominantly when sitting, standing, or upright, but subsiding when she is in supine position. Difficulty ambulation due to tremors and generalized weakness and shortness of breath. Denies chest pain, occasional palpitations, has shortness of breath on exertion. No urine or bowel incontinence. DVT in both lower extremities using anticoagulation and both lower extremities in stockings. Denies having depression and anxiety at this time. PHYSICAL EXAMINATION: GENERAL: This is a well-developed, cachectic lady, not in acute distress, sitting in a chair with a nasal cannula for oxygen. VITAL SIGNS: Now stable. Blood pressure 113/86, respirations 18, and temperature 98.1 degrees. HEENT: Head is normocephalic. There is no evidence of trauma. Eyes, ears, and throat are clear. NECK: Supple. No meningeal signs. MUSCULOSKELETAL: Intermittent irregular postural tremors in both upper extremities, peripheral pulse is 1+ symmetric. MENTAL STATUS: The patient is alert and oriented x3. Speech is fluent with no evidence of aphasia or apraxia. Cognitive function is normal. CRANIAL NERVE II: Pupils are both responding to light and accommodation. Extraocular movement intact. No nystagmus. CRANIAL NERVE V: Normal corneal responses. CRANIAL NERVE VII: No facial asymmetry. CRANIAL NERVE VIII: Slight decrease in hearing. CRANIAL NERVE IX THROUGH XII: Tongue is in midline. Symmetric palate elevation. MOTOR EXAMINATION: Revealed normal muscle tone. Strength 5/5 in all extremities, postural tremor of both upper extremities intermittently, no tremors in both lower extremities noted. Deep tendon reflexes 1+ symmetric with downgoing toes on both sides. SENSORY EXAMINATION: Normal to pinprick and light touch. Gait is slow, somewhat wobbly. IMPRESSION: 1. This is a 76-year-old female with a new onset of postural tremor, probably drug induced. 2. Polypharmacy. 3. History of paroxysmal atrial fibrillation. 4. Chronic obstructive pulmonary disease. 5. History of lower extremity deep vein thrombosis. 6. History of congestive heart failure. DISCUSSION: The patient developed intermittent postural tremors, very likely related to polypharmacy. This should be reviewed and medications should be put on hold. She has no evidence of seizure activity and no evidence of focal neurological deficit. We will hold Lipitor and BuSpar. The patient to continue with the current treatment for fluid with reduction of steroids and tremors gradually subside. We will follow with you. Thank you for allowing me to see this interesting patient in neurological consultation. Chris Patel M.D. DR: EMILY JOB#: [id number] CC:
[2016-09-20] MEDS: Ipratropium 0.02% Inh Soln 2.5ml UD HHN SCH ×6 (02:35→23:16)
[2016-09-20] MEDS: Solu-MEDROL 40mg Inj IVP SCH ×3 (06:03→21:21)
[2016-09-20 07:26] LABS: MEAN CORPUSCULAR HEMOGLOBIN 28.5 PG (27.0-31.0); MEAN CORPUSCULAR HGB CONC 31.1 G/DL (32.0-36.0); MEAN CORPUSCULAR VOLUME 91 FL (80-99); MEAN PLATELET VOLUME 9.9 FL (6.5-10.1); PLATELET COUNT 255 K/UL (150-450); RED CELL DISTRIBUTION WIDTH 12.5 % (11.6-14.8); WHITE BLOOD COUNT 10.2 K/UL (4.8-10.8)
[2016-09-20 07:28] LABS: ANION GAP 9 (5-15); CALCIUM 9.6 mg/dL (8.6-10.2); CARBON DIOXIDE 38 mEQ/L (20-30); CHLORIDE 89 mEQ/L (98-107); CREATININE 1.1 mg/dL (0.5-0.9); HEMOLYSIS 2; POTASSIUM 4.5 mEQ/L (3.4-4.9); SODIUM 136 mEQ/L (135-145)
[2016-09-20] MEDS: Magnesium Oxide 400mg tab ORAL SCH (08:28)
[2016-09-20] MEDS: Vitamin D 1000 IU Tab ORAL SCH (08:28)
[2016-09-20] MEDS: Eliquis 2.5mg tablet ORAL SCH ×2 (08:28→21:20)
[2016-09-20] MEDS: Multivitamin w/Minerals tab ORAL SCH (08:29)
[2016-09-20] MEDS: Lactobacillus-GG tablet ORAL SCH (08:29)
[2016-09-20] MEDS: Ocean Nasal Spray 45ml NASAL SCH ×2 (08:33→17:31)
[2016-09-20] MEDS: Amiodarone 200mg tab ORAL SCH (08:33)
[2016-09-20 08:46] LABS: ANISOCYTOSIS 1+; BAND NEUTROPHILS % (MANUAL) 1 % (0-8); BASOPHILS % (MANUAL) 0 % (0-2); EOSINOPHILS % (MANUAL) 0 % (0-3); HYPOCHROMASIA 1+; LYMPHOCYTES % (MANUAL) 3 % (20-45); NEUTROPHILS % (MANUAL) 92 % (45-75); PLATELET ESTIMATE DECREASED; PLATELET MORPHOLOGY NORMAL; TOTAL CELLS COUNTED 100
[2016-09-20] MEDS: BusPIRone 5mg Tab ORAL SCH ×3 (12:00→17:31)
--- NOTE | 2016-09-20 12:10 | Neurology Progress Note ---
Interim History Interim History ROS Limited/Unobtainable: No Complaints: feel better, anxious Events: stable Objective Physical Exam Last Vital Signs Date Time Temp Pulse Resp B/P Pulse Ox O2 Delivery O2 Flow Rate FiO2 09/20/16 11:04 75 16 99 Nasal Cannula 2.5 30 09/20/16 08:00 97.9 115/54 Laboratory Tests Test 09/19/16 13:10 09/20/16 05:40 White Blood Count 7.0 K/UL (4.8-10.8) # 10.2 K/UL (4.8-10.8) Red Blood Count 4.10 M/UL (4.20-5.40) L 3.70 M/UL (4.20-5.40) L Hemoglobin 11.5 G/DL (12.0-16.0) L 10.5 G/DL (12.0-16.0) L Hematocrit 37.7 % (37.0-47.0) 33.9 % (37.0-47.0) L Mean Corpuscular Volume 92 FL (80-99) 91 FL (80-99) Mean Corpuscular Hemoglobin 28.0 PG (27.0-31.0) 28.5 PG (27.0-31.0) Mean Corpuscular Hemoglobin Concent 30.4 G/DL (32.0-36.0) L 31.1 G/DL (32.0-36.0) L Red Cell Distribution Width 12.6 % (11.6-14.8) 12.5 % (11.6-14.8) Platelet Count 237 K/UL (150-450) 255 K/UL (150-450) Mean Platelet Volume 10.1 FL (6.5-10.1) 9.9 FL (6.5-10.1) Neutrophils (%) (Auto) % (45.0-75.0) % (45.0-75.0) Lymphocytes (%) (Auto) % (20.0-45.0) % (20.0-45.0) Monocytes (%) (Auto) % (1.0-10.0) % (1.0-10.0) Eosinophils (%) (Auto) % (0.0-3.0) % (0.0-3.0) Basophils (%) (Auto) % (0.0-2.0) % (0.0-2.0) Differential Total Cells Counted 100 100 Neutrophils % (Manual) 91 % (45-75) H 92 % (45-75) H Lymphocytes % (Manual) 2 % (20-45) L 3 % (20-45) L Monocytes % (Manual) 6 % (1-10) 4 % (1-10) Eosinophils % (Manual) 0 % (0-3) 0 % (0-3) Basophils % (Manual) 0 % (0-2) 0 % (0-2) Band Neutrophils 1 % (0-8) 1 % (0-8) Platelet Estimate Adequate Decreased L Platelet Morphology Normal Normal Red Blood Cell Morphology Hypochromasia 1+ 1+ Anisocytosis 1+ 1+ Sodium Level 132 mEQ/L (135-145) L 136 mEQ/L (135-145) Potassium Level 4.0 mEQ/L (3.4-4.9) 4.5 mEQ/L (3.4-4.9) Chloride Level 83 mEQ/L (98-107) L 89 mEQ/L (98-107) L Carbon Dioxide Level 35 mEQ/L (20-30) H 38 mEQ/L (20-30) H Anion Gap 14 (5-15) 9 (5-15) Blood Urea Nitrogen 19 mg/dL (7-23) 25 mg/dL (7-23) H Creatinine 1.2 mg/dL (0.5-0.9) H 1.1 mg/dL (0.5-0.9) H Estimat Glomerular Filtration Rate mL/min (>60) mL/min (>60) Glucose Level 240 mg/dL (74-106) #H 139 mg/dL (74-106) #H Calcium Level 9.6 mg/dL (8.6-10.2) 9.6 mg/dL (8.6-10.2) Pro-B-Type Natriuretic Peptide 411 pg/mL (0-450) General: well developed, well nourished, no acute distress Head: normocophalic, atraumatic Neck: no rigidity Neurologic Exam Mental Status: awake, alert, oriented x4, normal cognition, good mathematical skills, normal recent memory, normal remote memory, preserved visuospatial function Speech: normal speech, no dysarthia Language: normal language, no aphasia Cranial Nerve II: fundus normal, visual gauthier, no papilledema Cranial Nerves III, IV, : PERRLA, EOMI, pupils Cranial Nerve V: normal facial sensations, temporales function normal, masseters function normal, pterygoids function normal Cranial Nerve VII: no facial asymmetry, normal facial expressions Cranial Nerve VIII: no nystagmus Cranial Nerve IX: normal palate elevation, gag response Cranial Nerve X: no voice hoarseness Cranial Nerve XI: SCM symmetric, trapezii function normal Cranial Nerve XII: tongue midline, no tongue atrophy/fasciculations Motor System: strength 5/5, no muscle wasting, other - irregula rhand tremor Sensory: normal pinprick Coordination: normal finger to nose bilaterally, other Deep Tendon Reflexes: 1+ ankle (L), 1+ ankle (R), 1+ bicep (L), 1+ bicep (R), 1 + brachioradialis (L), 1+ brachioradialis (R), 1+ knee (L), 1+ knee (R), 1+ tricep (L), 1+ tricep (R) Reflexes: flexor plantar (L), flexor plantar (R) Gait: other - slow unstable Impression/Recommendations Problems: (1) tremor, postural probably 2/2 polypharmacy/steroids (2) COPD exacerbation Status: stable Recommendations # [id number] d/w family restart Buspar 15mg bid pt/ot NANCY JONES Sep 20, 2016 12:10
--- NOTE | 2016-09-20 16:21 | Cardiac Electrophysiology PN ---
Assessment/Plan Assessment/Plan 1. Paroxysmal atrial fibrillation. She does not have chest pain or palpitation or tachycardia. Continue Eliquis 2.5 mg b.i.d. and amiodarone 200 mg daily . Keep off beta-marleen in view of her chronic obstructive pulmonary disease. 2. Diastolic congestive heart failure, on Lasix 20 mg every other day. 3. Exacerbation of chronic obstructive pulmonary disease. The patient is on oxygen and Atrovent and Symbicort as well as Solu-Medrol. 4. Hyperlipidemia, on Lipitor. 5. Lower extremity deep vein thrombosis. Continue Eliquis at this time. RAQUEL RN and sister Subjective Subjective Feeling better. Only on 2.5 liter Nasal cannula. sister at bedside. Objective Last 24 Hour Vital Signs Date Time Temp Pulse Resp B/P Pulse Ox O2 Delivery O2 Flow Rate FiO2 09/20/16 15:24 72 16 97 Nasal Cannula 2.5 30 09/20/16 15:15 30 09/20/16 15:15 75 18 91 Nasal Cannula 2.5 30 09/20/16 12:00 97.5 18 112/62 94 Nasal Cannula 2.0 09/20/16 11:04 75 16 99 Nasal Cannula 2.5 30 09/20/16 10:54 73 18 94 Nasal Cannula 2.5 30 09/20/16 10:54 30 09/20/16 08:00 97.9 22 115/54 93 Nasal Cannula 3.0 09/20/16 07:27 73 16 99 Nasal Cannula 3.0 32 09/20/16 07:17 32 09/20/16 07:17 71 18 93 Nasal Cannula 3.0 32 09/20/16 07:16 71 16 93 Nasal Cannula 3.0 32 09/20/16 07:16 93 Nasal Cannula 3.0 32 09/20/16 07:16 Nasal Cannula 3.0 32 09/20/16 03:56 97.8 65 20 119/62 95 Nasal Cannula 3.0 09/20/16 00:00 112/62 09/19/16 23:49 63 16 99 Nasal Cannula 3.0 32 09/19/16 23:44 32 09/19/16 23:43 65 15 89 Nasal Cannula 3.0 32 09/19/16 21:21 66 16 91 Nasal Cannula 3.0 32 09/19/16 21:18 66 16 92 Nasal Cannula 3.0 32 09/19/16 20:09 32 09/19/16 20:09 66 16 92 Nasal Cannula 3.0 32 09/19/16 20:08 Nasal Cannula 3.0 32 09/19/16 20:08 92 Nasal Cannula 3.0 32 09/19/16 20:00 97.5 65 20 123/60 90 Nasal Cannula 3.0 09/19/16 16:52 63 18 100 Nasal Cannula 3.0 32 09/19/16 16:45 63 18 Nasal Cannula 3.0 32 09/19/16 16:45 97.9 69 19 110/49 93 Nasal Cannula 2.0 Intake and Output 09/19/16 09/20/16 19:00 07:00 Intake Total 240 ml 240 ml Output Total 240 ml Balance 0 ml 240 ml Intake Oral 240 ml 240 ml Output Urine Total 240 ml # Voids 2 2 Laboratory Tests Test 09/20/16 05:40 White Blood Count 10.2 K/UL (4.8-10.8) Red Blood Count 3.70 M/UL (4.20-5.40) L Hemoglobin 10.5 G/DL (12.0-16.0) L Hematocrit 33.9 % (37.0-47.0) L Mean Corpuscular Volume 91 FL (80-99) Mean Corpuscular Hemoglobin 28.5 PG (27.0-31.0) Mean Corpuscular Hemoglobin Concent 31.1 G/DL (32.0-36.0) L Red Cell Distribution Width 12.5 % (11.6-14.8) Platelet Count 255 K/UL (150-450) Mean Platelet Volume 9.9 FL (6.5-10.1) Neutrophils (%) (Auto) % (45.0-75.0) Lymphocytes (%) (Auto) % (20.0-45.0) Monocytes (%) (Auto) % (1.0-10.0) Eosinophils (%) (Auto) % (0.0-3.0) Basophils (%) (Auto) % (0.0-2.0) Differential Total Cells Counted 100 Neutrophils % (Manual) 92 % (45-75) H Lymphocytes % (Manual) 3 % (20-45) L Monocytes % (Manual) 4 % (1-10) Eosinophils % (Manual) 0 % (0-3) Basophils % (Manual) 0 % (0-2) Band Neutrophils 1 % (0-8) Platelet Estimate Decreased L Platelet Morphology Normal Hypochromasia 1+ Anisocytosis 1+ Sodium Level 136 mEQ/L (135-145) Potassium Level 4.5 mEQ/L (3.4-4.9) Chloride Level 89 mEQ/L (98-107) L Carbon Dioxide Level 38 mEQ/L (20-30) H Anion Gap 9 (5-15) Blood Urea Nitrogen 25 mg/dL (7-23) H Creatinine 1.1 mg/dL (0.5-0.9) H Estimat Glomerular Filtration Rate mL/min (>60) Glucose Level 139 mg/dL (74-106) #H Calcium Level 9.6 mg/dL (8.6-10.2) Pro-B-Type Natriuretic Peptide 411 pg/mL (0-450) Microbiology Date/Time Source Procedure Growth Status 09/18/16 15:50 Nasal Nares MRSA Culture - Final NO METHICILLIN RESISTANT STAPH AUREUS... Complete 09/18/16 15:50 Rectum VRE Culture - Final Enterococcus Faecalis - Vre Complete Objective HEAD AND NECK: Shows mild JVD. LUNGS: Coarse rhonchi. CARDIOVASCULAR: Irregular S1 and S2 with no gallop or murmur. ABDOMEN: Soft and nontender. EXTREMITIES: No edema. TODD HAINES Sep 20, 2016 16:20
--- NOTE | 2016-09-20 17:00 | Pulmonology Progress Note ---
Assessment/Plan Problems: (1) COPD exacerbation (2) Cor pulmonale (3) Hypoxia Assessment/Plan IV steroids theophyline IV antibiotics check sputum titrate fio2 to sat of 92% Subjective ROS Limited/Unobtainable: No Interval Events: less short of breath, no phlegm Allergies: Coded Allergies: IODINE (Verified Allergy, Unknown, 09/18/16) PENICILLINS (Unverified Allergy, Unknown, 09/18/16) SULFACETAMIDE (Verified Allergy, Unknown, 09/18/16) Uncoded Allergies: PENICILLIN (Allergy, Unknown, 09/18/16) Objective Last 24 Hour Vital Signs Date Time Temp Pulse Resp B/P Pulse Ox O2 Delivery O2 Flow Rate FiO2 09/20/16 15:24 72 16 97 Nasal Cannula 2.5 30 09/20/16 15:15 30 09/20/16 15:15 75 18 91 Nasal Cannula 2.5 30 09/20/16 12:00 97.5 18 112/62 94 Nasal Cannula 2.0 09/20/16 11:04 75 16 99 Nasal Cannula 2.5 30 09/20/16 10:54 73 18 94 Nasal Cannula 2.5 30 09/20/16 10:54 30 09/20/16 08:00 97.9 22 115/54 93 Nasal Cannula 3.0 09/20/16 07:27 73 16 99 Nasal Cannula 3.0 32 09/20/16 07:17 32 09/20/16 07:17 71 18 93 Nasal Cannula 3.0 32 09/20/16 07:16 71 16 93 Nasal Cannula 3.0 32 09/20/16 07:16 93 Nasal Cannula 3.0 32 09/20/16 07:16 Nasal Cannula 3.0 32 09/20/16 03:56 97.8 65 20 119/62 95 Nasal Cannula 3.0 09/20/16 00:00 112/62 09/19/16 23:49 63 16 99 Nasal Cannula 3.0 32 09/19/16 23:44 32 09/19/16 23:43 65 15 89 Nasal Cannula 3.0 32 09/19/16 21:21 66 16 91 Nasal Cannula 3.0 32 09/19/16 21:18 66 16 92 Nasal Cannula 3.0 32 09/19/16 20:09 32 09/19/16 20:09 66 16 92 Nasal Cannula 3.0 32 09/19/16 20:08 Nasal Cannula 3.0 32 09/19/16 20:08 92 Nasal Cannula 3.0 32 09/19/16 20:00 97.5 65 20 123/60 90 Nasal Cannula 3.0 Intake and Output 09/19/16 09/20/16 19:00 07:00 Intake Total 240 ml 240 ml Output Total 240 ml Balance 0 ml 240 ml Intake Oral 240 ml 240 ml Output Urine Total 240 ml # Voids 2 2 General Appearance: cachetic HEENT: normocephalic, atraumatic Respiratory/Chest: chest wall non-tender, decreased breath sounds, crackles/ rales Cardiovascular: normal peripheral pulses, normal rate Abdomen: normal bowel sounds, soft, non tender Genitourinary: normal external genitalia Extremities: no clubbing Neurologic/Psychiatric: hemp fiber taker off II-XII grossly normal, no motor/sensory deficits Microbiology Date/Time Source Procedure Growth Status 09/18/16 15:50 Nasal Nares MRSA Culture - Final NO METHICILLIN RESISTANT STAPH AUREUS... Complete 09/18/16 15:50 Rectum VRE Culture - Final Enterococcus Faecalis - Vre Complete Laboratory Tests 09/20/16 05:40: White Blood Count 10.2, Red Blood Count 3.70L, Hemoglobin 10.5L, Hematocrit 33.9L, Mean Corpuscular Volume 91, Mean Corpuscular Hemoglobin 28.5, Mean Corpuscular Hemoglobin Concent 31.1L, Red Cell Distribution Width 12.5, Platelet Count 255, Mean Platelet Volume 9.9, Neutrophils (%) (Auto) , Lymphocytes (%) (Auto) , Monocytes (%) (Auto) , Eosinophils (%) (Auto) , Basophils (%) (Auto) , Differential Total Cells Counted 100, Neutrophils % ( Manual) 92H, Lymphocytes % (Manual) 3L, Monocytes % (Manual) 4, Eosinophils % ( Manual) 0, Basophils % (Manual) 0, Band Neutrophils 1, Platelet Estimate DecreasedL, Platelet Morphology Normal, Hypochromasia 1+, Anisocytosis 1+, Sodium Level 136, Potassium Level 4.5, Chloride Level 89L, Carbon Dioxide Level 38H, Anion Gap 9, Blood Urea Nitrogen 25H, Creatinine 1.1H, Estimat Glomerular Filtration Rate , Glucose Level 139#H, Calcium Level 9.6, Pro-B-Type Natriuretic Peptide 411 Current Medications Medications (Trade) Dose Ordered Sig/Maddy Route PRN Reason Start Time Stop Time Status Last Admin Dose Admin Amiodarone HCl (Cordarone) 200 mg DAILY ORAL 09/19/16 15:00 10/19/16 14:59 09/20/16 08:33 Apixaban (Eliquis) 2.5 mg Q12HR ORAL 09/18/16 21:00 10/18/16 20:59 09/20/16 08:28 Budesonide/ Formoterol Fumarate (Symbicort 160/ 4.5) 2 puff Q12HR INH 09/19/16 14:00 10/19/16 13:59 09/20/16 07:37 Buspirone HCl (Buspar) 15 mg THREE TIMES A DAY ORAL 09/20/16 11:00 10/20/16 10:59 09/20/16 12:00 Estrogens Conjugated (Premarin Vag Cream W/JUAN) 1 applic THREE TIMES A WEEK VAGIN 09/21/16 09:00 10/21/16 08:59 Furosemide (Lasix) 20 mg DAILY ORAL 09/20/16 09:00 10/20/16 08:59 09/20/16 08:28 Gabapentin (Neurontin) 100 mg BID PRN ORAL NEUROPATHIC PAIN 09/18/16 21:00 10/18/16 20:59 09/20/16 08:29 Ipratropium [place] (Atrovent) 500 mcg Q4HRT HHN 09/19/16 17:00 09/24/16 16:59 09/20/16 15:15 Lactobacillus Acidophilus (Culturelle) 1 tab DAILY ORAL 09/19/16 09:00 10/19/16 08:59 09/20/16 08:29 Magnesium Oxide (Mag-Ox 400mg) 400 mg DAILY ORAL 09/19/16 09:00 10/19/16 08:59 09/20/16 08:28 Methylprednisolone Sodium Succinate (Solu-MEDROL) 40 mg EVERY 8 HOURS IVP 09/19/16 22:00 10/19/16 21:59 09/20/16 14:12 Mirtazapine (Remeron) 15 mg BEDTIME ORAL 09/18/16 21:00 10/18/16 20:59 09/19/16 21:33 Multivitamins Therapeutic (Therapeutic Multivitamin) 1 ea DAILY ORAL 09/19/16 09:00 10/19/16 08:59 09/20/16 08:29 Promethazine HCl/ Codeine (Phenergan with Codeine) 5 ml Q4H PRN ORAL For Cough 09/19/16 16:30 10/19/16 16:29 Ranitidine HCl (Zantac) 150 mg BEDTIME ORAL 09/18/16 21:00 10/18/16 20:59 09/19/16 21:34 Sodium Chloride ([place] Nasal [place]) 2 spray BID NASAL 09/19/16 09:00 10/19/16 08:59 09/20/16 08:33 Theophylline ([place]-Dur) 100 mg QHS ORAL 09/19/16 21:00 10/19/16 20:59 09/19/16 21:32 Tiotropium [place] (Spiriva Inhaler) 1 puff DAILY INH 09/18/16 22:00 10/18/16 21:59 09/20/16 07:16 Vitamin D (Vitamin D) 1,000 intlu DAILY ORAL 09/19/16 09:00 10/19/16 08:59 09/20/16 08:28 SABRINA GOLDBERG Sep 20, 2016 17:00
--- NOTE | 2016-09-20 18:29 | Internal Med Progress Note ---
Subjective Date of Service: Sep 20, 2016 Physician Name Everardo Garcia Attending Physician Reynaldo Oakley M.D. Current Medications Medications (Trade) Dose Ordered Sig/Maddy Route PRN Reason Start Time Stop Time Status Last Admin Dose Admin Amiodarone HCl (Cordarone) 200 mg DAILY ORAL 09/19/16 15:00 10/19/16 14:59 09/20/16 08:33 Apixaban (Eliquis) 2.5 mg Q12HR ORAL 09/18/16 21:00 10/18/16 20:59 09/20/16 08:28 Budesonide/ Formoterol Fumarate (Symbicort 160/ 4.5) 2 puff Q12HR INH 09/19/16 14:00 10/19/16 13:59 09/20/16 07:37 Buspirone HCl (Buspar) 15 mg THREE TIMES A DAY ORAL 09/20/16 11:00 10/20/16 10:59 09/20/16 17:31 Estrogens Conjugated (Premarin Vag Cream W/JUAN) 1 applic THREE TIMES A WEEK VAGIN 09/21/16 09:00 10/21/16 08:59 Furosemide (Lasix) 20 mg DAILY ORAL 09/20/16 09:00 10/20/16 08:59 09/20/16 08:28 Gabapentin (Neurontin) 100 mg BID PRN ORAL NEUROPATHIC PAIN 09/18/16 21:00 10/18/16 20:59 09/20/16 08:29 Ipratropium [place] (Atrovent) 500 mcg Q4HRT HHN 09/19/16 17:00 09/24/16 16:59 09/20/16 15:15 Lactobacillus Acidophilus (Culturelle) 1 tab DAILY ORAL 09/19/16 09:00 10/19/16 08:59 09/20/16 08:29 Magnesium Oxide (Mag-Ox 400mg) 400 mg DAILY ORAL 09/19/16 09:00 10/19/16 08:59 09/20/16 08:28 Methylprednisolone Sodium Succinate (Solu-MEDROL) 40 mg EVERY 12 HOURS IVP 09/20/16 21:00 10/20/16 20:59 Mirtazapine (Remeron) 15 mg BEDTIME ORAL 09/18/16 21:00 10/18/16 20:59 09/19/16 21:33 Multivitamins Therapeutic (Therapeutic Multivitamin) 1 ea DAILY ORAL 09/19/16 09:00 10/19/16 08:59 09/20/16 08:29 Promethazine HCl/ Codeine (Phenergan with Codeine) 5 ml Q4H PRN ORAL For Cough 09/19/16 16:30 10/19/16 16:29 Ranitidine HCl (Zantac) 150 mg BEDTIME ORAL 09/18/16 21:00 10/18/16 20:59 09/19/16 21:34 Sodium Chloride ([place] Nasal [place]) 2 spray BID NASAL 09/19/16 09:00 10/19/16 08:59 09/20/16 17:31 Theophylline ([place]-Dur) 100 mg QHS ORAL 09/19/16 21:00 10/19/16 20:59 09/19/16 21:32 Tiotropium [place] (Spiriva Inhaler) 1 puff DAILY INH 09/18/16 22:00 10/18/16 21:59 09/20/16 07:16 Vitamin D (Vitamin D) 1,000 intlu DAILY ORAL 09/19/16 09:00 10/19/16 08:59 09/20/16 08:28 Allergies: Coded Allergies: IODINE (Verified Allergy, Unknown, 09/18/16) PENICILLINS (Unverified Allergy, Unknown, 09/18/16) SULFACETAMIDE (Verified Allergy, Unknown, 09/18/16) Uncoded Allergies: PENICILLIN (Allergy, Unknown, 09/18/16) ROS Limited/Unobtainable: No Constitutional: Reports: no symptoms HEENT: Reports: no symptoms Cardiovascular: Reports: no symptoms Respiratory: Reports: shortness of breath Gastrointestinal/Abdominal: Reports: no symptoms Genitourinary: Reports: no symptoms Neurologic/Psychiatric: Reports: no symptoms Subjective 76 YO F admitted with shortness of breath. Now COPD exacerbation. Cover for Int Rashawn-Dr Oakley Objective Last Vital Signs Date Time Temp Pulse Resp B/P Pulse Ox O2 Delivery O2 Flow Rate FiO2 09/20/16 16:00 96.6 69 18 119/59 92 Nasal Cannula 2.0 09/20/16 15:24 30 General Appearance: cachetic, thin EENT: PERRL/EOMI, normal ENT inspection, TMs normal Neck: non-tender, normal alignment, supple Cardiovascular: normal peripheral pulses, normal rate, regularly irregular, no gallop/murmur, no JVD Respiratory/Chest: chest wall non-tender, respiratory distress, crackles/rales , rhonchi - bilaterally, expiratory wheezing Abdomen: normal bowel sounds, non tender, soft, no organomegaly, no mass Extremities: normal range of motion, non-tender Neurologic: bottom finisher II-XII grossly normal, no motor/sensory deficits Skin: normal pigmentation, warm/dry Laboratory Tests Test 09/20/16 05:40 White Blood Count 10.2 K/UL (4.8-10.8) Red Blood Count 3.70 M/UL (4.20-5.40) L Hemoglobin 10.5 G/DL (12.0-16.0) L Hematocrit 33.9 % (37.0-47.0) L Mean Corpuscular Volume 91 FL (80-99) Mean Corpuscular Hemoglobin 28.5 PG (27.0-31.0) Mean Corpuscular Hemoglobin Concent 31.1 G/DL (32.0-36.0) L Red Cell Distribution Width 12.5 % (11.6-14.8) Platelet Count 255 K/UL (150-450) Mean Platelet Volume 9.9 FL (6.5-10.1) Neutrophils (%) (Auto) % (45.0-75.0) Lymphocytes (%) (Auto) % (20.0-45.0) Monocytes (%) (Auto) % (1.0-10.0) Eosinophils (%) (Auto) % (0.0-3.0) Basophils (%) (Auto) % (0.0-2.0) Differential Total Cells Counted 100 Neutrophils % (Manual) 92 % (45-75) H Lymphocytes % (Manual) 3 % (20-45) L Monocytes % (Manual) 4 % (1-10) Eosinophils % (Manual) 0 % (0-3) Basophils % (Manual) 0 % (0-2) Band Neutrophils 1 % (0-8) Platelet Estimate Decreased L Platelet Morphology Normal Hypochromasia 1+ Anisocytosis 1+ Sodium Level 136 mEQ/L (135-145) Potassium Level 4.5 mEQ/L (3.4-4.9) Chloride Level 89 mEQ/L (98-107) L Carbon Dioxide Level 38 mEQ/L (20-30) H Anion Gap 9 (5-15) Blood Urea Nitrogen 25 mg/dL (7-23) H Creatinine 1.1 mg/dL (0.5-0.9) H Estimat Glomerular Filtration Rate mL/min (>60) Glucose Level 139 mg/dL (74-106) #H Calcium Level 9.6 mg/dL (8.6-10.2) Pro-B-Type Natriuretic Peptide 411 pg/mL (0-450) Microbiology Date/Time Source Procedure Growth Status 09/18/16 15:50 Nasal Nares MRSA Culture - Final NO METHICILLIN RESISTANT STAPH AUREUS... Complete 09/18/16 15:50 Rectum VRE Culture - Final Enterococcus Faecalis - Vre Complete Intake and Output 09/19/16 09/20/16 19:00 07:00 Intake Total 240 ml 240 ml Output Total 240 ml Balance 0 ml 240 ml Intake Oral 240 ml 240 ml Output Urine Total 240 ml # Voids 2 2 Assessment/Plan Problem List: (1) Atrial fibrillation Assessment & Plan: see cardiology note. Cont amiodarone and eliquis (2) Hypothyroidism (3) Breast cancer Assessment & Plan: S/P resection and radiation tx (4) Renal cancer Assessment & Plan: S/P resection. (5) COPD exacerbation Assessment & Plan: Continue IV solumedrol and theophylline per pulmonary. Cont spiriva and symbicort. (6) tremor, postural probably 2/2 polypharmacy/steroids (7) Hypoxia (8) Dyspnea Status: not improved EVERARDO GARCIA Sep 20, 2016 18:29
[2016-09-20] MEDS: Theophylline ER 100mg ORAL SCH (21:20)
[2016-09-21] VITALS: BP 116/45
[2016-09-21] MEDS: Ipratropium 0.02% Inh Soln 2.5ml UD HHN SCH ×6 (02:54→23:03)
[2016-09-21 04:57] VITALS: BP 118/48
[2016-09-21 07:09] LABS: MEAN CORPUSCULAR HEMOGLOBIN 28.2 PG (27.0-31.0); MEAN CORPUSCULAR HGB CONC 30.6 G/DL (32.0-36.0); MEAN CORPUSCULAR VOLUME 92 FL (80-99); MEAN PLATELET VOLUME 10.3 FL (6.5-10.1); PLATELET COUNT 250 K/UL (150-450); RED BLOOD COUNT 3.73 M/UL (4.20-5.40); RED CELL DISTRIBUTION WIDTH 12.8 % (11.6-14.8); WHITE BLOOD COUNT 7.4 K/UL (4.8-10.8)
[2016-09-21 08:00] VITALS: BP 119/54
[2016-09-21] MEDS: Eliquis 2.5mg tablet ORAL SCH ×2 (08:44→20:38)
[2016-09-21] MEDS: Magnesium Oxide 400mg tab ORAL SCH (08:44)
[2016-09-21] MEDS: Solu-MEDROL 40mg Inj IVP SCH (08:44)
[2016-09-21] MEDS: Multivitamin w/Minerals tab ORAL SCH (08:44)
[2016-09-21] MEDS: Lactobacillus-GG tablet ORAL SCH (08:45)
[2016-09-21] MEDS: Amiodarone 200mg tab ORAL SCH (08:45)
[2016-09-21] MEDS: BusPIRone 5mg Tab ORAL SCH ×3 (08:45→17:56)
[2016-09-21] MEDS: Vitamin D 1000 IU Tab ORAL SCH (08:45)
[2016-09-21] MEDS: Premarin Vag Cream 3gm VAGIN SCH (08:46)
[2016-09-21] MEDS: Ocean Nasal Spray 45ml NASAL SCH ×2 (09:00→17:55)
[2016-09-21 09:43] LABS: ALANINE AMINOTRANSFERASE 39 U/L (3-33); ANION GAP 5 (5-15); ASPARTATE AMINO TRANSFERASE 34 U/L (5-40); CALCIUM 9.1 mg/dL (8.6-10.2); CARBON DIOXIDE 40 mEQ/L (20-30); CHLORIDE 93 mEQ/L (98-107); HEMOLYSIS 6; POTASSIUM 4.6 mEQ/L (3.4-4.9); SODIUM 138 mEQ/L (135-145); TOTAL PROTEIN 6.6 g/dL (6.6-8.7)
--- NOTE | 2016-09-21 10:58 | Pulmonology Progress Note ---
Assessment/Plan Assessment/Plan ASSESSMENT acute COPD exacerbation hx of cor pulmonale acute on chronic hypoxemia PAF diastolic dysfunction hx of nicotine abuse mild pulmonary HTN hyperlipidemia acute DVT BLE postural tremor hx of breast CA, s/p surgery and radiation hx of renal Ca, s/p surgery PLAN OF CARE [facility] floor O2 HHN IV steroids and taper sputum cx empiric abx antitussive prn continue Theophylline fup with CXR Venous Duplex BLE + acute DVT BLE on Eliquis for PAF cardio follows rate control with Amiodarone, a/coagulation with Eiquis ECHO with preserved EF, RVSP of 38 c/w mild pulmonary HTN, grade 1 diastolic dysfunction, no evidence of cor pulmonale currently continue Lasix qod, no evidence of decompensation continue statin neuro follows tremor postural, likely due to polypharmacy/steroids. started on Buspar, tremor decreasing bowel regimen PT/OT GI prophylaxis case discussed and evaluated by supervising physician Subjective Allergies: Coded Allergies: IODINE (Verified Allergy, Unknown, 09/18/16) PENICILLINS (Unverified Allergy, Unknown, 09/18/16) SULFACETAMIDE (Verified Allergy, Unknown, 09/18/16) Uncoded Allergies: PENICILLIN (Allergy, Unknown, 09/18/16) Subjective feeling better still chest tightness and SOB patient with chronic hypoxemia, using oxygen at home at all times along with nebulizing machine denies chest pain afebrile no leucocytosis Objective Last 24 Hour Vital Signs Date Time Temp Pulse Resp B/P Pulse Ox O2 Delivery O2 Flow Rate FiO2 09/21/16 08:25 70 16 99 Nasal Cannula 2.0 28 09/21/16 08:17 68 16 94 Nasal Cannula 2.0 28 09/21/16 08:17 94 Nasal Cannula 2.0 28 09/21/16 08:17 Nasal Cannula 2.0 28 09/21/16 08:00 98.2 63 19 119/54 95 Nasal Cannula 2.0 09/21/16 04:57 97.6 70 19 118/48 95 Nasal Cannula 2.0 09/21/16 03:01 66 16 99 Nasal Cannula 2.0 28 09/21/16 02:53 65 16 96 Nasal Cannula 2.0 28 09/21/16 00:00 97.8 66 19 116/45 95 Nasal Cannula 09/20/16 23:23 68 16 98 Nasal Cannula 2.0 28 09/20/16 23:15 66 16 96 Nasal Cannula 2.0 28 09/20/16 20:00 98.1 71 19 107/60 93 Room Air 09/20/16 19:36 63 16 99 Nasal Cannula 2.0 28 09/20/16 19:28 64 18 95 Nasal Cannula 2.0 28 09/20/16 19:27 95 Nasal Cannula 2.0 28 09/20/16 19:27 Nasal Cannula 2.0 28 09/20/16 16:00 96.6 69 18 119/59 92 Nasal Cannula 2.0 09/20/16 15:24 72 16 97 Nasal Cannula 2.5 30 09/20/16 15:15 30 09/20/16 15:15 75 18 91 Nasal Cannula 2.5 30 09/20/16 12:00 97.5 18 112/62 94 Nasal Cannula 2.0 09/20/16 11:04 75 16 99 Nasal Cannula 2.5 30 Intake and Output 09/20/16 09/21/16 19:00 07:00 Intake Total 360 ml 200 ml Balance 360 ml 200 ml Intake Oral 360 ml 200 ml # Voids 2 General Appearance: no acute distress, cachetic, other - A/A/O x 3 elderly female HEENT: normocephalic, atraumatic, PERRL Respiratory/Chest: no respiratory distress, no accessory muscle use, decreased breath sounds, rhonchi - few isolated rhonchi , expiratory wheezing - scattered expiratory wheezes, other - hyperexpanded "pigeon chest" Cardiovascular: normal rate, regular rhythm Abdomen: normal bowel sounds, soft, non tender, non distended Genitourinary: normal external genitalia Extremities: no edema, pedal pulses normal Neurologic/Psychiatric: alert, oriented x 3, responsive Musculoskeletal: atrophy - BLE Microbiology Date/Time Source Procedure Growth Status 09/18/16 15:50 Nasal Nares MRSA Culture - Final NO METHICILLIN RESISTANT STAPH AUREUS... Complete 09/18/16 15:50 Rectum VRE Culture - Final Enterococcus Faecalis - Vre Complete Laboratory Tests 09/21/16 05:35: White Blood Count 7.4, Red Blood Count 3.73L, Hemoglobin 10.5L, Hematocrit 34.3L , Mean Corpuscular Volume 92, Mean Corpuscular Hemoglobin 28.2, Mean Corpuscular Hemoglobin Concent 30.6L, Red Cell Distribution Width 12.8, Platelet Count 250, Mean Platelet Volume 10.3H, Neutrophils (%) (Auto) , Lymphocytes (%) (Auto) , Monocytes (%) (Auto) , Eosinophils (%) (Auto) , Basophils (%) (Auto) , Neutrophils % (Manual) [Pending], Lymphocytes % (Manual) [Pending], Platelet Estimate [Pending], Platelet Morphology [Pending], Sodium Level 138, Potassium Level 4.6, Chloride Level 93L, Carbon Dioxide Level 40H, Anion Gap 5, Blood Urea Nitrogen 26H, Creatinine 1.0H, Estimat Glomerular Filtration Rate , Glucose Level 126H, Calcium Level 9.1, Total Bilirubin 0.2, Aspartate Amino Transf (AST/SGOT) 34, Alanine Aminotransferase (ALT/SGPT) 39H, Alkaline Phosphatase 57, Pro-B-Type Natriuretic Peptide 592H, Total Protein 6.6 , Albumin 3.4L, Globulin 3.2, Albumin/Globulin Ratio 1.0 Current Medications Medications (Trade) Dose Ordered Sig/Maddy Route PRN Reason Start Time Stop Time Status Last Admin Dose Admin Amiodarone HCl (Cordarone) 200 mg DAILY ORAL 09/19/16 15:00 10/19/16 14:59 09/21/16 08:45 Apixaban (Eliquis) 2.5 mg Q12HR ORAL 09/18/16 21:00 10/18/16 20:59 09/21/16 08:44 Budesonide/ Formoterol Fumarate (Symbicort 160/ 4.5) 2 puff Q12HR INH 09/19/16 14:00 10/19/16 13:59 09/21/16 09:16 Buspirone HCl (Buspar) 15 mg THREE TIMES A DAY ORAL 09/20/16 11:00 10/20/16 10:59 09/21/16 08:45 Estrogens Conjugated (Premarin Vag Cream W/JUAN) 1 applic THREE TIMES A WEEK VAGIN 09/21/16 09:00 10/21/16 08:59 09/21/16 08:46 Furosemide (Lasix) 20 mg DAILY ORAL 09/20/16 09:00 10/20/16 08:59 09/21/16 08:46 Gabapentin (Neurontin) 100 mg BID PRN ORAL NEUROPATHIC PAIN 09/18/16 21:00 10/18/16 20:59 09/20/16 08:29 Ipratropium [place] (Atrovent) 500 mcg Q4HRT HHN 09/19/16 17:00 09/24/16 16:59 09/21/16 08:15 Lactobacillus Acidophilus (Culturelle) 1 tab DAILY ORAL 09/19/16 09:00 10/19/16 08:59 09/21/16 08:45 Magnesium Oxide (Mag-Ox 400mg) 400 mg DAILY ORAL 09/19/16 09:00 10/19/16 08:59 09/21/16 08:44 Methylprednisolone Sodium Succinate (Solu-MEDROL) 40 mg EVERY 12 HOURS IVP 09/20/16 21:00 10/20/16 20:59 09/21/16 08:44 Mirtazapine (Remeron) 15 mg BEDTIME ORAL 09/18/16 21:00 10/18/16 20:59 09/20/16 21:21 Multivitamins Therapeutic (Therapeutic Multivitamin) 1 ea DAILY ORAL 09/19/16 09:00 10/19/16 08:59 09/21/16 08:44 Promethazine HCl/ Codeine (Phenergan with Codeine) 5 ml Q4H PRN ORAL For Cough 09/19/16 16:30 10/19/16 16:29 Ranitidine HCl (Zantac) 150 mg BEDTIME ORAL 09/18/16 21:00 10/18/16 20:59 09/20/16 21:21 Sodium Chloride ([place] Nasal [place]) 2 spray BID NASAL 09/19/16 09:00 10/19/16 08:59 09/20/16 17:31 Theophylline ([place]) 100 mg QHS ORAL 09/19/16 21:00 10/19/16 20:59 09/20/16 21:20 Tiotropium [place] (Spiriva Inhaler) 1 puff DAILY INH 09/18/16 22:00 10/18/16 21:59 09/21/16 09:16 Vitamin D (Vitamin D) 1,000 intlu DAILY ORAL 09/19/16 09:00 10/19/16 08:59 09/21/16 08:45 Gloria Sanchez NP ([place]) Sep 21, 2016 10:58
[2016-09-21 11:49] LABS: BAND NEUTROPHILS % (MANUAL) 0 % (0-8); BASOPHILS % (MANUAL) 0 % (0-2); EOSINOPHILS % (MANUAL) 0 % (0-3); HYPOCHROMASIA 1+; LYMPHOCYTES % (MANUAL) 6 % (20-45); NEUTROPHILS % (MANUAL) 93 % (45-75); PLATELET ESTIMATE ADEQUATE; PLATELET MORPHOLOGY NORMAL; TOTAL CELLS COUNTED 100
[2016-09-21 12:00] VITALS: BP 124/48
--- NOTE | 2016-09-21 14:22 | Cardiac Electrophysiology PN ---
Assessment/Plan Assessment/Plan 1. Paroxysmal atrial fibrillation. No chest pain or palpitation or tachycardia. Continue Eliquis 2.5 mg b.i.d. and amiodarone 200 mg daily . Keep off beta-blockers in view of her chronic obstructive pulmonary disease. 2. Diastolic congestive heart failure, on Lasix 20 mg every day. 3. Exacerbation of chronic obstructive pulmonary disease. The patient is on oxygen and Atrovent and Symbicort as well as Solu-Medrol. 4. Hyperlipidemia, on Lipitor. 5. Lower extremity deep vein thrombosis. on Eliquis at this time. DW RN and daughter Subjective Subjective Feeling better, daughter at bedside.Denies chest pain. Objective Last 24 Hour Vital Signs Date Time Temp Pulse Resp B/P Pulse Ox O2 Delivery O2 Flow Rate FiO2 09/21/16 12:00 98.2 75 19 124/48 92 Nasal Cannula 2.0 09/21/16 11:53 73 16 98 Nasal Cannula 2.0 28 09/21/16 11:44 72 16 93 Nasal Cannula 2.0 28 09/21/16 08:25 70 16 99 Nasal Cannula 2.0 28 09/21/16 08:17 68 16 94 Nasal Cannula 2.0 28 09/21/16 08:17 94 Nasal Cannula 2.0 28 09/21/16 08:17 Nasal Cannula 2.0 28 09/21/16 08:00 98.2 63 19 119/54 95 Nasal Cannula 2.0 09/21/16 04:57 97.6 70 19 118/48 95 Nasal Cannula 2.0 09/21/16 03:01 66 16 99 Nasal Cannula 2.0 28 09/21/16 02:53 65 16 96 Nasal Cannula 2.0 28 09/21/16 00:00 97.8 66 19 116/45 95 Nasal Cannula 09/20/16 23:23 68 16 98 Nasal Cannula 2.0 28 09/20/16 23:15 66 16 96 Nasal Cannula 2.0 28 09/20/16 20:00 98.1 71 19 107/60 93 Room Air 09/20/16 19:36 63 16 99 Nasal Cannula 2.0 28 09/20/16 19:28 64 18 95 Nasal Cannula 2.0 28 09/20/16 19:27 95 Nasal Cannula 2.0 28 09/20/16 19:27 Nasal Cannula 2.0 28 09/20/16 16:00 96.6 69 18 119/59 92 Nasal Cannula 2.0 09/20/16 15:24 72 16 97 Nasal Cannula 2.5 30 09/20/16 15:15 30 09/20/16 15:15 75 18 91 Nasal Cannula 2.5 30 Intake and Output 09/20/16 09/21/16 19:00 07:00 Intake Total 360 ml 200 ml Balance 360 ml 200 ml Intake Oral 360 ml 200 ml # Voids 2 Laboratory Tests Test 09/21/16 05:35 White Blood Count 7.4 K/UL (4.8-10.8) Red Blood Count 3.73 M/UL (4.20-5.40) L Hemoglobin 10.5 G/DL (12.0-16.0) L Hematocrit 34.3 % (37.0-47.0) L Mean Corpuscular Volume 92 FL (80-99) Mean Corpuscular Hemoglobin 28.2 PG (27.0-31.0) Mean Corpuscular Hemoglobin Concent 30.6 G/DL (32.0-36.0) L Red Cell Distribution Width 12.8 % (11.6-14.8) Platelet Count 250 K/UL (150-450) Mean Platelet Volume 10.3 FL (6.5-10.1) H Neutrophils (%) (Auto) % (45.0-75.0) Lymphocytes (%) (Auto) % (20.0-45.0) Monocytes (%) (Auto) % (1.0-10.0) Eosinophils (%) (Auto) % (0.0-3.0) Basophils (%) (Auto) % (0.0-2.0) Differential Total Cells Counted 100 Neutrophils % (Manual) 93 % (45-75) H Lymphocytes % (Manual) 6 % (20-45) L Monocytes % (Manual) 1 % (1-10) Eosinophils % (Manual) 0 % (0-3) Basophils % (Manual) 0 % (0-2) Band Neutrophils 0 % (0-8) Platelet Estimate Adequate Platelet Morphology Normal Hypochromasia 1+ Sodium Level 138 mEQ/L (135-145) Potassium Level 4.6 mEQ/L (3.4-4.9) Chloride Level 93 mEQ/L (98-107) L Carbon Dioxide Level 40 mEQ/L (20-30) H Anion Gap 5 (5-15) Blood Urea Nitrogen 26 mg/dL (7-23) H Creatinine 1.0 mg/dL (0.5-0.9) H Estimat Glomerular Filtration Rate mL/min (>60) Glucose Level 126 mg/dL (74-106) H Calcium Level 9.1 mg/dL (8.6-10.2) Total Bilirubin 0.2 mg/dL (0.0-1.2) Aspartate Amino Transf (AST/SGOT) 34 U/L (5-40) Alanine Aminotransferase (ALT/SGPT) 39 U/L (3-33) H Alkaline Phosphatase 57 U/L (35-104) Pro-B-Type Natriuretic Peptide 592 pg/mL (0-450) H Total Protein 6.6 g/dL (6.6-8.7) Albumin 3.4 g/dL (3.5-5.2) L Globulin 3.2 g/dL Albumin/Globulin Ratio 1.0 (1.0-2.7) Microbiology Date/Time Source Procedure Growth Status 09/18/16 15:50 Nasal Nares MRSA Culture - Final NO METHICILLIN RESISTANT STAPH AUREUS... Complete 09/18/16 15:50 Rectum VRE Culture - Final Enterococcus Faecalis - Vre Complete Objective HEAD AND NECK: Shows mild JVD. LUNGS: Coarse rhonchi. CARDIOVASCULAR: Irregular S1 and S2 with no gallop or murmur. ABDOMEN: Soft and nontender. EXTREMITIES: No edema. TODD HAINES Sep 21, 2016 14:22
[2016-09-21 16:00] VITALS: BP 115/64
--- NOTE | 2016-09-21 18:44 | Internal Med Progress Note ---
Subjective Date of Service: Sep 21, 2016 Physician Name Everardo Garcia Attending Physician Reynaldo Oakley M.D. Current Medications Medications (Trade) Dose Ordered Sig/Maddy Route PRN Reason Start Time Stop Time Status Last Admin Dose Admin Amiodarone HCl (Cordarone) 200 mg DAILY ORAL 09/19/16 15:00 10/19/16 14:59 09/21/16 08:45 Apixaban (Eliquis) 2.5 mg Q12HR ORAL 09/18/16 21:00 10/18/16 20:59 09/21/16 08:44 Budesonide/ Formoterol Fumarate (Symbicort 160/ 4.5) 2 puff Q12HR INH 09/19/16 14:00 10/19/16 13:59 09/21/16 09:16 Buspirone HCl (Buspar) 15 mg THREE TIMES A DAY ORAL 09/20/16 11:00 10/20/16 10:59 09/21/16 17:56 Estrogens Conjugated (Premarin Vag Cream W/JUAN) 1 applic THREE TIMES A WEEK VAGIN 09/21/16 09:00 10/21/16 08:59 09/21/16 08:46 Furosemide (Lasix) 20 mg DAILY ORAL 09/20/16 09:00 10/20/16 08:59 09/21/16 08:46 Gabapentin (Neurontin) 100 mg BID PRN ORAL NEUROPATHIC PAIN 09/18/16 21:00 10/18/16 20:59 09/21/16 13:22 Ipratropium [place] (Atrovent) 500 mcg Q4HRT HHN 09/19/16 17:00 09/24/16 16:59 09/21/16 15:07 Lactobacillus Acidophilus (Culturelle) 1 tab DAILY ORAL 09/19/16 09:00 10/19/16 08:59 09/21/16 08:45 Magnesium Oxide (Mag-Ox 400mg) 400 mg DAILY ORAL 09/19/16 09:00 10/19/16 08:59 09/21/16 08:44 Methylprednisolone Sodium Succinate (Solu-MEDROL) 40 mg DAILY IVP 09/22/16 09:00 10/22/16 08:59 Mirtazapine (Remeron) 15 mg BEDTIME ORAL 09/18/16 21:00 10/18/16 20:59 09/20/16 21:21 Multivitamins Therapeutic (Therapeutic Multivitamin) 1 ea DAILY ORAL 09/19/16 09:00 10/19/16 08:59 09/21/16 08:44 Promethazine HCl/ Codeine (Phenergan with Codeine) 5 ml Q4H PRN ORAL For Cough 09/19/16 16:30 10/19/16 16:29 Ranitidine HCl (Zantac) 150 mg BEDTIME ORAL 09/18/16 21:00 10/18/16 20:59 09/20/16 21:21 Sodium Chloride ([place] Nasal [place]) 2 spray BID NASAL 09/19/16 09:00 10/19/16 08:59 09/21/16 17:55 Theophylline ([place]-Dur) 100 mg QHS ORAL 09/19/16 21:00 10/19/16 20:59 09/20/16 21:20 Tiotropium [place] (Spiriva Inhaler) 1 puff DAILY INH 09/18/16 22:00 10/18/16 21:59 09/21/16 09:16 Vitamin D (Vitamin D) 1,000 intlu DAILY ORAL 09/19/16 09:00 10/19/16 08:59 09/21/16 08:45 Allergies: Coded Allergies: IODINE (Verified Allergy, Unknown, 09/18/16) PENICILLINS (Unverified Allergy, Unknown, 09/18/16) SULFACETAMIDE (Verified Allergy, Unknown, 09/18/16) Uncoded Allergies: PENICILLIN (Allergy, Unknown, 09/18/16) ROS Limited/Unobtainable: No Constitutional: Reports: no symptoms HEENT: Reports: no symptoms Cardiovascular: Reports: no symptoms Respiratory: Reports: cough, shortness of breath Gastrointestinal/Abdominal: Reports: no symptoms Genitourinary: Reports: no symptoms Neurologic/Psychiatric: Reports: no symptoms Subjective 76 YO F admitted with shortness of breath. Now COPD exacerbation. Cover for Int Med-Dr Oakley Objective Last Vital Signs Date Time Temp Pulse Resp B/P Pulse Ox O2 Delivery O2 Flow Rate FiO2 09/21/16 16:00 97.9 72 19 115/64 95 Nasal Cannula 2.0 09/21/16 15:19 28 Laboratory Tests Test 09/21/16 05:35 White Blood Count 7.4 K/UL (4.8-10.8) Red Blood Count 3.73 M/UL (4.20-5.40) L Hemoglobin 10.5 G/DL (12.0-16.0) L Hematocrit 34.3 % (37.0-47.0) L Mean Corpuscular Volume 92 FL (80-99) Mean Corpuscular Hemoglobin 28.2 PG (27.0-31.0) Mean Corpuscular Hemoglobin Concent 30.6 G/DL (32.0-36.0) L Red Cell Distribution Width 12.8 % (11.6-14.8) Platelet Count 250 K/UL (150-450) Mean Platelet Volume 10.3 FL (6.5-10.1) H Neutrophils (%) (Auto) % (45.0-75.0) Lymphocytes (%) (Auto) % (20.0-45.0) Monocytes (%) (Auto) % (1.0-10.0) Eosinophils (%) (Auto) % (0.0-3.0) Basophils (%) (Auto) % (0.0-2.0) Differential Total Cells Counted 100 Neutrophils % (Manual) 93 % (45-75) H Lymphocytes % (Manual) 6 % (20-45) L Monocytes % (Manual) 1 % (1-10) Eosinophils % (Manual) 0 % (0-3) Basophils % (Manual) 0 % (0-2) Band Neutrophils 0 % (0-8) Platelet Estimate Adequate Platelet Morphology Normal Hypochromasia 1+ Sodium Level 138 mEQ/L (135-145) Potassium Level 4.6 mEQ/L (3.4-4.9) Chloride Level 93 mEQ/L (98-107) L Carbon Dioxide Level 40 mEQ/L (20-30) H Anion Gap 5 (5-15) Blood Urea Nitrogen 26 mg/dL (7-23) H Creatinine 1.0 mg/dL (0.5-0.9) H Estimat Glomerular Filtration Rate mL/min (>60) Glucose Level 126 mg/dL (74-106) H Calcium Level 9.1 mg/dL (8.6-10.2) Total Bilirubin 0.2 mg/dL (0.0-1.2) Aspartate Amino Transf (AST/SGOT) 34 U/L (5-40) Alanine Aminotransferase (ALT/SGPT) 39 U/L (3-33) H Alkaline Phosphatase 57 U/L (35-104) Pro-B-Type Natriuretic Peptide 592 pg/mL (0-450) H Total Protein 6.6 g/dL (6.6-8.7) Albumin 3.4 g/dL (3.5-5.2) L Globulin 3.2 g/dL Albumin/Globulin Ratio 1.0 (1.0-2.7) Intake and Output 09/20/16 09/21/16 19:00 07:00 Intake Total 360 ml 200 ml Balance 360 ml 200 ml Intake Oral 360 ml 200 ml # Voids 2 Objective General Appearance: cachetic, thin EENT: PERRL/EOMI, normal ENT inspection, TMs normal Neck: non-tender, normal alignment, supple Cardiovascular: normal peripheral pulses, normal rate, regularly irregular, no gallop/murmur, no JVD Respiratory/Chest: chest wall non-tender, respiratory distress, crackles/rales , rhonchi - bilaterally, expiratory wheezing Abdomen: normal bowel sounds, non tender, soft, no organomegaly, no mass Extremities: normal range of motion, non-tender 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 Cont amiodarone and eliquis (2) Hypothyroidism (3) Breast cancer Assessment & Plan: S/P resection and radiation tx (4) Renal cancer Assessment & Plan: S/P resection. (5) COPD exacerbation Assessment & Plan: Continue IV solumedrol and theophylline per pulmonary. Cont spiriva and symbicort. (6) tremor, postural probably 2/2 polypharmacy/steroids (7) Hypoxia (8) Dyspnea Status: progressing GARCIAEVERARDO Danielle Sep 21, 2016 18:44
[2016-09-21] MEDS: Theophylline ER 100mg ORAL SCH (20:39)
[2016-09-21 20:44] VITALS: BP 120/61
[2016-09-22 00:19] VITALS: BP 120/67
[2016-09-22] MEDS: Ipratropium 0.02% Inh Soln 2.5ml UD HHN SCH ×6 (03:08→23:22)
[2016-09-22 04:34] VITALS: BP 125/65
[2016-09-22 07:20] LABS: BASOPHILS % (AUTO) 0.7 % (0.0-2.0); LYMPHOCYTES % (AUTO) 5.9 % (20.0-45.0); MEAN CORPUSCULAR HEMOGLOBIN 28.4 PG (27.0-31.0); MEAN CORPUSCULAR HGB CONC 30.9 G/DL (32.0-36.0); MEAN CORPUSCULAR VOLUME 92 FL (80-99); MEAN PLATELET VOLUME 10.4 FL (6.5-10.1); MONOCYTES % (AUTO) 11.1 % (1.0-10.0); NEUTROPHILS % (AUTO) 82.3 % (45.0-75.0); PLATELET COUNT 249 K/UL (150-450); RED BLOOD COUNT 3.72 M/UL (4.20-5.40); RED CELL DISTRIBUTION WIDTH 12.9 % (11.6-14.8); WHITE BLOOD COUNT 9.1 K/UL (4.8-10.8)
[2016-09-22 07:23] LABS: ANION GAP 5 (5-15); CARBON DIOXIDE 40 mEQ/L (20-30); CHLORIDE 95 mEQ/L (98-107); CREATININE 0.9 mg/dL (0.5-0.9); HEMOLYSIS 8; POTASSIUM 4.6 mEQ/L (3.4-4.9); SODIUM 140 mEQ/L (135-145)
[2016-09-22 08:00] VITALS: BP 99/52
[2016-09-22] MEDS: Eliquis 2.5mg tablet ORAL SCH ×2 (08:18→20:49)
[2016-09-22] MEDS: Magnesium Oxide 400mg tab ORAL SCH (08:18)
[2016-09-22] MEDS: Multivitamin w/Minerals tab ORAL SCH (08:18)
[2016-09-22] MEDS: BusPIRone 5mg Tab ORAL SCH ×3 (08:18→17:53)
[2016-09-22] MEDS: Amiodarone 200mg tab ORAL SCH ×2 (08:18→20:49)
[2016-09-22] MEDS: Lactobacillus-GG tablet ORAL SCH (08:18)
[2016-09-22] MEDS: Vitamin D 1000 IU Tab ORAL SCH (08:19)
[2016-09-22] MEDS: Ocean Nasal Spray 45ml NASAL SCH ×2 (08:25→19:26)
[2016-09-22] MEDS ORDERED: Solu-MEDROL 40mg Inj IVP SCH (09:00)
[2016-09-22 12:00] VITALS: BP 118/56
--- NOTE | 2016-09-22 14:14 | Internal Med Progress Note ---
Subjective Date of Service: Sep 22, 2016 Physician Name Everardo Delgado Attending Physician Reynaldo Oakley M.D. Current Medications Medications (Trade) Dose Ordered Sig/Maddy Route PRN Reason Start Time Stop Time Status Last Admin Dose Admin Amiodarone HCl (Cordarone) 200 mg DAILY ORAL 09/19/16 15:00 10/19/16 14:59 09/22/16 08:18 Apixaban (Eliquis) 2.5 mg Q12HR ORAL 09/18/16 21:00 10/18/16 20:59 09/22/16 08:18 Budesonide/ Formoterol Fumarate (Symbicort 160/ 4.5) 2 puff Q12HR INH 09/19/16 14:00 10/19/16 13:59 09/22/16 08:35 Buspirone HCl (Buspar) 15 mg THREE TIMES A DAY ORAL 09/20/16 11:00 10/20/16 10:59 09/22/16 12:31 Estrogens Conjugated (Premarin Vag Cream W/JUAN) 1 applic THREE TIMES A WEEK VAGIN 09/21/16 09:00 10/21/16 08:59 09/21/16 08:46 Furosemide (Lasix) 20 mg DAILY ORAL 09/20/16 09:00 10/20/16 08:59 09/22/16 08:18 Gabapentin (Neurontin) 100 mg BID PRN ORAL NEUROPATHIC PAIN 09/18/16 21:00 10/18/16 20:59 09/22/16 12:16 Ipratropium [place] (Atrovent) 500 mcg Q4HRT HHN 09/19/16 17:00 09/24/16 16:59 09/22/16 11:52 Lactobacillus Acidophilus (Culturelle) 1 tab DAILY ORAL 09/19/16 09:00 10/19/16 08:59 09/22/16 08:18 Magnesium Oxide (Mag-Ox 400mg) 400 mg DAILY ORAL 09/19/16 09:00 10/19/16 08:59 09/22/16 08:18 Methylprednisolone Sodium Succinate (Solu-MEDROL) 40 mg DAILY IVP 09/22/16 09:00 10/22/16 08:59 09/22/16 08:25 Mirtazapine (Remeron) 15 mg BEDTIME ORAL 09/18/16 21:00 10/18/16 20:59 09/21/16 20:39 Multivitamins Therapeutic (Therapeutic Multivitamin) 1 ea DAILY ORAL 09/19/16 09:00 10/19/16 08:59 09/22/16 08:18 Promethazine HCl/ Codeine (Phenergan with Codeine) 5 ml Q4H PRN ORAL For Cough 09/19/16 16:30 10/19/16 16:29 Ranitidine HCl (Zantac) 150 mg BEDTIME ORAL 09/18/16 21:00 10/18/16 20:59 09/21/16 20:39 Sodium Chloride ([place] Nasal [place]) 2 spray BID NASAL 09/19/16 09:00 10/19/16 08:59 09/22/16 08:25 Theophylline ([place]-Dur) 100 mg QHS ORAL 09/19/16 21:00 10/19/16 20:59 09/21/16 20:39 Tiotropium [place] (Spiriva Inhaler) 1 puff DAILY INH 09/18/16 22:00 10/18/16 21:59 09/22/16 08:01 Vitamin D (Vitamin D) 1,000 intlu DAILY ORAL 09/19/16 09:00 10/19/16 08:59 09/22/16 08:19 Allergies: Coded Allergies: IODINE (Verified Allergy, Unknown, 09/18/16) PENICILLINS (Unverified Allergy, Unknown, 09/18/16) SULFACETAMIDE (Verified Allergy, Unknown, 09/18/16) Uncoded Allergies: PENICILLIN (Allergy, Unknown, 09/18/16) ROS Limited/Unobtainable: No Constitutional: Reports: no symptoms HEENT: Reports: no symptoms Cardiovascular: Reports: no symptoms Respiratory: Reports: shortness of breath Gastrointestinal/Abdominal: Reports: no symptoms Genitourinary: Reports: no symptoms Neurologic/Psychiatric: Reports: no symptoms Subjective 76 YO F admitted with shortness of breath. Now COPD exacerbation. Cover for Int Med-Dr Oakley Objective Last Vital Signs Date Time Temp Pulse Resp B/P Pulse Ox O2 Delivery O2 Flow Rate FiO2 09/22/16 11:59 67 18 100 Nasal Cannula 2.0 09/22/16 08:00 97.5 99/52 09/22/16 03:15 28 Laboratory Tests Test 09/22/16 05:20 White Blood Count 9.1 K/UL (4.8-10.8) Red Blood Count 3.72 M/UL (4.20-5.40) L Hemoglobin 10.6 G/DL (12.0-16.0) L Hematocrit 34.2 % (37.0-47.0) L Mean Corpuscular Volume 92 FL (80-99) Mean Corpuscular Hemoglobin 28.4 PG (27.0-31.0) Mean Corpuscular Hemoglobin Concent 30.9 G/DL (32.0-36.0) L Red Cell Distribution Width 12.9 % (11.6-14.8) Platelet Count 249 K/UL (150-450) Mean Platelet Volume 10.4 FL (6.5-10.1) H Neutrophils (%) (Auto) 82.3 % (45.0-75.0) H Lymphocytes (%) (Auto) 5.9 % (20.0-45.0) L Monocytes (%) (Auto) 11.1 % (1.0-10.0) H Eosinophils (%) (Auto) 0.0 % (0.0-3.0) Basophils (%) (Auto) 0.7 % (0.0-2.0) Sodium Level 140 mEQ/L (135-145) Potassium Level 4.6 mEQ/L (3.4-4.9) Chloride Level 95 mEQ/L (98-107) L Carbon Dioxide Level 40 mEQ/L (20-30) H Anion Gap 5 (5-15) Blood Urea Nitrogen 24 mg/dL (7-23) H Creatinine 0.9 mg/dL (0.5-0.9) Estimat Glomerular Filtration Rate mL/min (>60) Glucose Level 87 mg/dL (74-106) Calcium Level 9.0 mg/dL (8.6-10.2) Intake and Output 09/21/16 09/22/16 19:00 07:00 Intake Total 360 ml Balance 360 ml Intake Oral 360 ml # Voids 2 2 Objective General Appearance: cachetic, thin EENT: PERRL/EOMI, normal ENT inspection, TMs normal Neck: non-tender, normal alignment, supple Cardiovascular: normal peripheral pulses, normal rate, regularly irregular, no gallop/murmur, no JVD Respiratory/Chest: chest wall non-tender, respiratory distress, crackles/rales , rhonchi - bilaterally, expiratory wheezing Abdomen: normal bowel sounds, non tender, soft, no organomegaly, no mass Extremities: normal range of motion, non-tender 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 Cont amiodarone and eliquis (2) Hypothyroidism (3) Breast cancer Assessment & Plan: S/P resection and radiation tx (4) Renal cancer Assessment & Plan: S/P resection. (5) COPD exacerbation Assessment & Plan: Continue IV solumedrol and theophylline per pulmonary. Cont spiriva and symbicort. (6) tremor, postural probably 2/2 polypharmacy/steroids (7) Hypoxia (8) Dyspnea Status: progressing Assessment/Plan Discussed with daughter and EVERARDO RAMIREZ Sep 22, 2016 14:14
--- NOTE | 2016-09-22 14:21 | Pulmonology Progress Note ---
Assessment/Plan Assessment/Plan ASSESSMENT acute COPD exacerbation hx of cor pulmonale acute on chronic hypoxemia PAF diastolic dysfunction hx of nicotine abuse mild pulmonary HTN hyperlipidemia acute DVT BLE postural tremor hx of breast CA, s/p surgery and radiation hx of renal Ca, s/p surgery PLAN OF CARE MS floor O2 HHN taper IV steroids sputum cx empiric abx antitussive prn continue Theophylline fup with CXR Venous Duplex BLE + acute DVT BLE on Eliquis for PAF cardio follows rate control with Amiodarone, a/coagulation with Eiquis ECHO with preserved EF, RVSP of 38 c/w mild pulmonary HTN, grade 1 diastolic dysfunction, no evidence of cor pulmonale currently continue Lasix qod, no evidence of decompensation continue statin neuro follows tremor postural, likely due to polypharmacy/steroids. started on Buspar, tremor decreasing bowel regimen PT/OT GI prophylaxis case discussed and evaluated by supervising physician Subjective Allergies: Coded Allergies: IODINE (Verified Allergy, Unknown, 09/18/16) PENICILLINS (Unverified Allergy, Unknown, 09/18/16) SULFACETAMIDE (Verified Allergy, Unknown, 09/18/16) Uncoded Allergies: PENICILLIN (Allergy, Unknown, 09/18/16) Subjective feeling better still chest tightness and SOB patient with chronic hypoxemia, using oxygen at home at all times along with nebulizing machine denies chest pain afebrile no leucocytosis Objective Last 24 Hour Vital Signs Date Time Temp Pulse Resp B/P Pulse Ox O2 Delivery O2 Flow Rate FiO2 09/22/16 11:59 67 18 100 Nasal Cannula 2.0 09/22/16 11:48 59 18 94 Nasal Cannula 2.0 09/22/16 08:00 97.5 62 18 99/52 94 Nasal Cannula 2.0 09/22/16 07:30 63 18 99 Nasal Cannula 2.0 09/22/16 07:20 61 18 93 Nasal Cannula 2.0 09/22/16 07:19 Nasal Cannula 2.0 09/22/16 07:18 92 Nasal Cannula 2.0 09/22/16 04:34 97.5 62 18 125/65 93 Nasal Cannula 2.0 09/22/16 03:15 61 16 99 Nasal Cannula 2.0 28 09/22/16 03:07 60 16 94 Nasal Cannula 2.0 28 09/22/16 00:19 97.7 61 19 120/67 94 Nasal Cannula 2.0 09/21/16 23:11 63 16 99 Nasal Cannula 2.0 28 09/21/16 23:03 61 16 95 Nasal Cannula 2.0 28 09/21/16 20:44 97.7 69 18 120/61 92 Nasal Cannula 2.0 09/21/16 19:16 69 16 98 Nasal Cannula 2.0 28 09/21/16 19:08 71 18 93 Nasal Cannula 2.0 28 09/21/16 19:07 93 Nasal Cannula 2.0 28 09/21/16 19:07 Nasal Cannula 2.0 28 09/21/16 16:00 97.9 72 19 115/64 95 Nasal Cannula 2.0 09/21/16 15:19 68 16 98 Nasal Cannula 2.0 28 09/21/16 15:08 70 16 94 Nasal Cannula 2.0 28 Intake and Output 09/21/16 09/22/16 19:00 07:00 Intake Total 360 ml Balance 360 ml Intake Oral 360 ml # Voids 2 2 Objective General Appearance: no acute distress, cachetic, other - A/A/O x 3 elderly female HEENT: normocephalic, atraumatic, PERRL Respiratory/Chest: no respiratory distress, no accessory muscle use, decreased breath sounds, rhonchi - few isolated rhonchi , expiratory wheezing - scattered expiratory wheezes, other - hyperexpanded "pigeon chest" Cardiovascular: normal rate, regular rhythm Abdomen: normal bowel sounds, soft, non tender, non distended Genitourinary: normal external genitalia Extremities: no edema, pedal pulses normal Neurologic/Psychiatric: alert, oriented x 3, responsive Musculoskeletal: atrophy - BLE Laboratory Tests 09/22/16 05:20: White Blood Count 9.1, Red Blood Count 3.72L, Hemoglobin 10.6L, Hematocrit 34.2L , Mean Corpuscular Volume 92, Mean Corpuscular Hemoglobin 28.4, Mean Corpuscular Hemoglobin Concent 30.9L, Red Cell Distribution Width 12.9, Platelet Count 249, Mean Platelet Volume 10.4H, Neutrophils (%) (Auto) 82.3H, Lymphocytes (%) (Auto) 5.9L, Monocytes (%) (Auto) 11.1H, Eosinophils (%) (Auto) 0.0, Basophils (%) (Auto) 0.7, Sodium Level 140, Potassium Level 4.6, Chloride Level 95L, Carbon Dioxide Level 40H, Anion Gap 5, Blood Urea Nitrogen 24H, Creatinine 0.9, Estimat Glomerular Filtration Rate , Glucose Level 87, Calcium Level 9.0 Current Medications Medications (Trade) Dose Ordered Sig/Maddy Route PRN Reason Start Time Stop Time Status Last Admin Dose Admin Amiodarone HCl (Cordarone) 200 mg DAILY ORAL 09/19/16 15:00 10/19/16 14:59 09/22/16 08:18 Apixaban (Eliquis) 2.5 mg Q12HR ORAL 09/18/16 21:00 10/18/16 20:59 09/22/16 08:18 Atorvastatin Calcium (Lipitor) 10 mg BEDTIME ORAL 09/22/16 21:00 10/22/16 20:59 UNV Budesonide/ Formoterol Fumarate (Symbicort 160/ 4.5) 2 puff Q12HR INH 09/19/16 14:00 10/19/16 13:59 09/22/16 08:35 Buspirone HCl (Buspar) 15 mg THREE TIMES A DAY ORAL 09/20/16 11:00 10/20/16 10:59 09/22/16 12:31 Estrogens Conjugated (Premarin Vag Cream W/JUAN) 1 applic THREE TIMES A WEEK VAGIN 09/21/16 09:00 10/21/16 08:59 09/21/16 08:46 Furosemide (Lasix) 20 mg DAILY ORAL 09/20/16 09:00 10/20/16 08:59 09/22/16 08:18 Gabapentin (Neurontin) 100 mg BID PRN ORAL NEUROPATHIC PAIN 09/18/16 21:00 10/18/16 20:59 09/22/16 12:16 Ipratropium [place] (Atrovent) 500 mcg Q4HRT HHN 09/19/16 17:00 09/24/16 16:59 09/22/16 11:52 Lactobacillus Acidophilus (Culturelle) 1 tab DAILY ORAL 09/19/16 09:00 10/19/16 08:59 09/22/16 08:18 Magnesium Oxide (Mag-Ox 400mg) 400 mg DAILY ORAL 09/19/16 09:00 10/19/16 08:59 09/22/16 08:18 Methylprednisolone Sodium Succinate (Solu-MEDROL) 40 mg DAILY IVP 09/22/16 09:00 10/22/16 08:59 09/22/16 08:25 Mirtazapine (Remeron) 15 mg BEDTIME ORAL 09/18/16 21:00 10/18/16 20:59 09/21/16 20:39 Multivitamins Therapeutic (Therapeutic Multivitamin) 1 ea DAILY ORAL 09/19/16 09:00 10/19/16 08:59 09/22/16 08:18 Promethazine HCl/ Codeine (Phenergan with Codeine) 5 ml Q4H PRN ORAL For Cough 09/19/16 16:30 10/19/16 16:29 Ranitidine HCl (Zantac) 150 mg BEDTIME ORAL 09/18/16 21:00 10/18/16 20:59 09/21/16 20:39 Sodium Chloride ([place] Nasal [place]) 2 spray BID NASAL 09/19/16 09:00 10/19/16 08:59 09/22/16 08:25 Theophylline ([place]-Dur) 100 mg BID ORAL 09/22/16 18:00 10/22/16 17:59 UNV Tiotropium [place] (Spiriva Inhaler) 1 puff DAILY INH 09/18/16 22:00 10/18/16 21:59 09/22/16 08:01 Vitamin D (Vitamin D) 1,000 intlu DAILY ORAL 09/19/16 09:00 10/19/16 08:59 09/22/16 08:19 [facility] HospitalGloria Singh NP Sep 22, 2016 14:21
--- NOTE | 2016-09-22 15:05 | Cardiac Electrophysiology PN ---
Assessment/Plan Assessment/Plan 1. Paroxysmal atrial fibrillation. No chest pain or palpitation or tachycardia. Continue Eliquis 2.5 mg b.i.d. and amiodarone 200 mg daily . Off beta-blockers for chronic obstructive pulmonary disease. 2. Diastolic congestive heart failure, on Lasix 20 mg every day. 3. Exacerbation of chronic obstructive pulmonary disease. The patient is on oxygen and Atrovent and Symbicort as well as Solu-Medrol. 4. Hyperlipidemia, on Lipitor. 5. Lower extremity deep vein thrombosis. on Eliquis at this time. DW RN and daughter Subjective Subjective Feeling better, daughter at bedside.Denies chest pain or SOB. Now on 2 liter NC Objective Last 24 Hour Vital Signs Date Time Temp Pulse Resp B/P Pulse Ox O2 Delivery O2 Flow Rate FiO2 09/22/16 11:59 67 18 100 Nasal Cannula 2.0 09/22/16 11:48 59 18 94 Nasal Cannula 2.0 09/22/16 08:00 97.5 62 18 99/52 94 Nasal Cannula 2.0 09/22/16 07:30 63 18 99 Nasal Cannula 2.0 09/22/16 07:20 61 18 93 Nasal Cannula 2.0 09/22/16 07:19 Nasal Cannula 2.0 09/22/16 07:18 92 Nasal Cannula 2.0 09/22/16 04:34 97.5 62 18 125/65 93 Nasal Cannula 2.0 09/22/16 03:15 61 16 99 Nasal Cannula 2.0 28 09/22/16 03:07 60 16 94 Nasal Cannula 2.0 28 09/22/16 00:19 97.7 61 19 120/67 94 Nasal Cannula 2.0 09/21/16 23:11 63 16 99 Nasal Cannula 2.0 28 09/21/16 23:03 61 16 95 Nasal Cannula 2.0 28 09/21/16 20:44 97.7 69 18 120/61 92 Nasal Cannula 2.0 09/21/16 19:16 69 16 98 Nasal Cannula 2.0 28 09/21/16 19:08 71 18 93 Nasal Cannula 2.0 28 09/21/16 19:07 93 Nasal Cannula 2.0 28 09/21/16 19:07 Nasal Cannula 2.0 28 09/21/16 16:00 97.9 72 19 115/64 95 Nasal Cannula 2.0 09/21/16 15:19 68 16 98 Nasal Cannula 2.0 28 09/21/16 15:08 70 16 94 Nasal Cannula 2.0 28 Intake and Output 09/21/16 09/22/16 19:00 07:00 Intake Total 360 ml Balance 360 ml Intake Oral 360 ml # Voids 2 2 Laboratory Tests Test 09/22/16 05:20 White Blood Count 9.1 K/UL (4.8-10.8) Red Blood Count 3.72 M/UL (4.20-5.40) L Hemoglobin 10.6 G/DL (12.0-16.0) L Hematocrit 34.2 % (37.0-47.0) L Mean Corpuscular Volume 92 FL (80-99) Mean Corpuscular Hemoglobin 28.4 PG (27.0-31.0) Mean Corpuscular Hemoglobin Concent 30.9 G/DL (32.0-36.0) L Red Cell Distribution Width 12.9 % (11.6-14.8) Platelet Count 249 K/UL (150-450) Mean Platelet Volume 10.4 FL (6.5-10.1) H Neutrophils (%) (Auto) 82.3 % (45.0-75.0) H Lymphocytes (%) (Auto) 5.9 % (20.0-45.0) L Monocytes (%) (Auto) 11.1 % (1.0-10.0) H Eosinophils (%) (Auto) 0.0 % (0.0-3.0) Basophils (%) (Auto) 0.7 % (0.0-2.0) Sodium Level 140 mEQ/L (135-145) Potassium Level 4.6 mEQ/L (3.4-4.9) Chloride Level 95 mEQ/L (98-107) L Carbon Dioxide Level 40 mEQ/L (20-30) H Anion Gap 5 (5-15) Blood Urea Nitrogen 24 mg/dL (7-23) H Creatinine 0.9 mg/dL (0.5-0.9) Estimat Glomerular Filtration Rate mL/min (>60) Glucose Level 87 mg/dL (74-106) Calcium Level 9.0 mg/dL (8.6-10.2) Objective HEAD AND NECK: Mild JVD. LUNGS: Coarse rhonchi. CARDIOVASCULAR: Irregular S1 and S2 with no gallop or murmur. ABDOMEN: Soft and nontender. EXTREMITIES: No edema. TODD HAINES Sep 22, 2016 15:05
[2016-09-22 16:00] VITALS: BP 110/58
[2016-09-22] MEDS: Theophylline ER 100mg ORAL SCH (17:52)
[2016-09-22 20:00] VITALS: BP 125/57
[2016-09-22 22:33] LABS: APPEARANCE,URINE CLEAR; KETONES,URINE NEGATIVE (NEGATIVE); LEUKOCYTE ESTERASE ,URINE NEGATIVE (NEGATIVE); NITRITE,URINE NEGATIVE (NEGATIVE); PH,URINE 6.5 (4.5-8.0); PROTEIN,URINE NEGATIVE (NEGATIVE); UROBILINOGEN,URINE NORMAL MG/DL (0.0-1.0)
[2016-09-22 22:41] LABS: BACTERIA,URINE OCCASIONAL /HPF; RBC,URINE 0-2 /HPF (0 - 2); SQUAMOUS EPITHELIAL CELL,UR FEW /LPF (NONE/OCC); WBC,URINE 0 /HPF (0 - 2)
[2016-09-23] VITALS: BP 113/63
[2016-09-23] MEDS: Ipratropium 0.02% Inh Soln 2.5ml UD HHN SCH ×6 (03:19→23:00)
[2016-09-23 04:00] VITALS: BP 131/59
[2016-09-23 07:11] LABS: BASOPHILS % (AUTO) 0.7 % (0.0-2.0); LYMPHOCYTES % (AUTO) 6.5 % (20.0-45.0); MEAN CORPUSCULAR HEMOGLOBIN 28.7 PG (27.0-31.0); MEAN CORPUSCULAR HGB CONC 31.8 G/DL (32.0-36.0); MEAN CORPUSCULAR VOLUME 90 FL (80-99); MEAN PLATELET VOLUME 9.6 FL (6.5-10.1); MONOCYTES % (AUTO) 10.1 % (1.0-10.0); NEUTROPHILS % (AUTO) 82.6 % (45.0-75.0); PLATELET COUNT 287 K/UL (150-450); RED BLOOD COUNT 3.99 M/UL (4.20-5.40); RED CELL DISTRIBUTION WIDTH 12.3 % (11.6-14.8); WHITE BLOOD COUNT 9.6 K/UL (4.8-10.8)
[2016-09-23 07:37] LABS: ANION GAP 8 (5-15); CALCIUM 9.2 mg/dL (8.6-10.2); CARBON DIOXIDE 39 mEQ/L (20-30); CHLORIDE 92 mEQ/L (98-107); CREATININE 0.9 mg/dL (0.5-0.9); HEMOLYSIS 8; POTASSIUM 4.6 mEQ/L (3.4-4.9); SODIUM 139 mEQ/L (135-145)
[2016-09-23 08:00] VITALS: BP 119/74
[2016-09-23] MEDS: Ocean Nasal Spray 45ml NASAL SCH ×2 (09:12→18:05)
[2016-09-23] MEDS: Lactobacillus-GG tablet ORAL SCH (09:13)
[2016-09-23] MEDS: Amiodarone 200mg tab ORAL SCH ×2 (09:13→18:06)
[2016-09-23] MEDS: Multivitamin w/Minerals tab ORAL SCH (09:13)
[2016-09-23] MEDS: Eliquis 2.5mg tablet ORAL SCH ×2 (09:13→20:42)
[2016-09-23] MEDS: Magnesium Oxide 400mg tab ORAL SCH (09:13)
[2016-09-23] MEDS: Vitamin D 1000 IU Tab ORAL SCH (09:13)
[2016-09-23] MEDS: PredniSONE 20mg tab ORAL SCH (09:14)
[2016-09-23] MEDS: Theophylline ER 100mg ORAL SCH ×2 (09:14→18:06)
[2016-09-23] MEDS: BusPIRone 5mg Tab ORAL SCH ×2 (09:14→12:55)
[2016-09-23 12:00] VITALS: BP 112/56
--- NOTE | 2016-09-23 12:54 | Pulmonology Progress Note ---
Assessment/Plan Assessment/Plan ASSESSMENT acute COPD exacerbation hx of cor pulmonale acute on chronic hypoxemia PAF diastolic dysfunction hx of nicotine abuse mild pulmonary HTN hyperlipidemia acute DVT BLE postural tremor hx of breast CA, s/p surgery and radiation hx of renal Ca, s/p surgery PLAN OF CARE [facility] floor O2 HHN this am started on oral Prednisone with daily tapering sputum cx empiric abx antitussive prn continue Theophylline fup with CXR Venous Duplex BLE + acute DVT BLE on Eliquis for PAF cardio follows rate control with Amiodarone, a/coagulation with Eiquis ECHO with preserved EF, RVSP of 38 c/w mild pulmonary HTN, grade 1 diastolic dysfunction, no evidence of cor pulmonale currently continue Lasix qod, no evidence of decompensation continue statin neuro follows tremor postural, likely due to polypharmacy/steroids. started on Buspar, tremor decreasing bowel regimen PT/OT GI prophylaxis patient wants to go to short term rehab- per PMD upon dc will need from pulmonary standpoint: Medrol dose pack, inhalers, HHN prn and Theophylline case discussed and evaluated by supervising physician Subjective Allergies: Coded Allergies: IODINE (Verified Allergy, Unknown, 09/18/16) PENICILLINS (Unverified Allergy, Unknown, 09/18/16) SULFACETAMIDE (Verified Allergy, Unknown, 09/18/16) Uncoded Allergies: PENICILLIN (Allergy, Unknown, 09/18/16) Subjective feeling better still with SOB, less chest tightness, + cough patient with chronic hypoxemia, using oxygen at home at all times along with nebulizing machine denies chest pain afebrile no leucocytosis Objective Last 24 Hour Vital Signs Date Time Temp Pulse Resp B/P Pulse Ox O2 Delivery O2 Flow Rate FiO2 09/23/16 11:46 65 16 99 Nasal Cannula 2.0 28 09/23/16 11:38 28 09/23/16 11:38 64 16 91 Nasal Cannula 2.0 28 09/23/16 08:50 68 16 98 Nasal Cannula 2.0 28 09/23/16 08:00 97.9 70 20 119/74 94 Nasal Cannula 2.0 09/23/16 07:47 28 09/23/16 07:45 96 Nasal Cannula 2.0 28 09/23/16 07:45 63 16 96 Nasal Cannula 2.0 09/23/16 07:45 Nasal Cannula 2.0 28 09/23/16 04:00 97.5 78 18 131/59 95 Nasal Cannula 2.0 09/23/16 03:26 59 16 99 Nasal Cannula 2.0 09/23/16 03:18 60 16 96 Nasal Cannula 2.0 28 09/23/16 00:00 97.1 78 18 113/63 92 Nasal Cannula 2.0 09/22/16 23:30 60 16 99 Nasal Cannula 2.0 09/22/16 23:22 58 16 92 Nasal Cannula 2.0 28 09/22/16 20:00 97.3 90 18 125/57 93 Nasal Cannula 2.0 09/22/16 19:42 70 18 99 Nasal Cannula 2.0 09/22/16 19:34 82 20 93 Nasal Cannula 2.0 28 09/22/16 19:32 93 Nasal Cannula 2.0 28 09/22/16 19:32 Nasal Cannula 2.0 28 09/22/16 16:00 97.0 94 17 110/58 94 Room Air 09/22/16 15:41 59 18 100 Nasal Cannula 2.0 09/22/16 15:29 64 20 90 Nasal Cannula 2.0 Intake and Output 09/22/16 09/23/16 19:00 07:00 Intake Total 720 ml 240 ml Balance 720 ml 240 ml Intake Oral 720 ml 240 ml # Voids 2 2 Objective General Appearance: no acute distress, cachetic, other - A/A/O x 3 elderly female HEENT: normocephalic, atraumatic, PERRL Respiratory/Chest: no respiratory distress, no accessory muscle use, decreased breath sounds, few isolated rhonchi , no wheezes , , hyperexpanded "pigeon chest" Cardiovascular: normal rate, regular rhythm Abdomen: normal bowel sounds, soft, non tender, non distended Genitourinary: normal external genitalia Extremities: no edema, pedal pulses normal Neurologic/Psychiatric: alert, oriented x 3, responsive Musculoskeletal: atrophy - BLE Microbiology Date/Time Source Procedure Growth Status 09/22/16 22:00 Urine,Clean Catch Urine Culture - Preliminary Resulted Laboratory Tests 09/22/16 22:00: Urine Color Pale yellow, Urine Appearance Clear, Urine pH 6.5, Urine Specific [place] 1.015, Urine Protein Negative, Urine Glucose (UA) Negative, Urine Ketones Negative, Urine Occult Blood Negative, Urine Nitrite Negative, Urine Bilirubin Negative, Urine Urobilinogen Normal, Urine Leukocyte Esterase Negative , Urine RBC 0-2, Urine WBC 0, Urine Squamous Epithelial Cells Few, Urine Bacteria Occasional 09/23/16 05:30: White Blood Count 9.6, Red Blood Count 3.99L, Hemoglobin 11.5L, Hematocrit 36.0L , Mean Corpuscular Volume 90, Mean Corpuscular Hemoglobin 28.7, Mean Corpuscular Hemoglobin Concent 31.8L, Red Cell Distribution Width 12.3, Platelet Count 287, Mean Platelet Volume 9.6, Neutrophils (%) (Auto) 82.6H, Lymphocytes (%) (Auto) 6.5L, Monocytes (%) (Auto) 10.1H, Eosinophils (%) (Auto) 0.0, Basophils (%) (Auto) 0.7, Sodium Level 139, Potassium Level 4.6, Chloride Level 92L, Carbon Dioxide Level 39H, Anion Gap 8, Blood Urea Nitrogen 26H, Creatinine 0.9, Estimat Glomerular Filtration Rate , Glucose Level 86, Calcium Level 9.2 Current Medications Medications (Trade) Dose Ordered Sig/Maddy Route PRN Reason Start Time Stop Time Status Last Admin Dose Admin Amiodarone HCl (Cordarone) 200 mg BID ORAL 09/22/16 21:00 10/22/16 20:59 09/23/16 09:13 Apixaban (Eliquis) 2.5 mg Q12HR ORAL 09/18/16 21:00 10/18/16 20:59 09/23/16 09:13 Atorvastatin Calcium (Lipitor) 10 mg BEDTIME ORAL 09/22/16 21:00 10/22/16 20:59 09/22/16 20:49 Budesonide/ Formoterol Fumarate (Symbicort 160/ 4.5) 2 puff Q12HR INH 09/19/16 14:00 10/19/16 13:59 09/23/16 07:42 Buspirone HCl (Buspar) 15 mg THREE TIMES A DAY ORAL 09/20/16 11:00 10/20/16 10:59 09/23/16 09:14 Estrogens Conjugated (Premarin Vag Cream W/JUAN) 1 applic THREE TIMES A WEEK VAGIN 09/21/16 09:00 10/21/16 08:59 09/21/16 08:46 Furosemide (Lasix) 20 mg DAILY ORAL 09/20/16 09:00 10/20/16 08:59 09/23/16 09:14 Gabapentin (Neurontin) 100 mg BID PRN ORAL NEUROPATHIC PAIN 09/18/16 21:00 10/18/16 20:59 09/22/16 12:16 Ipratropium [place] (Atrovent) 500 mcg Q4HRT HHN 09/19/16 17:00 09/24/16 16:59 09/23/16 11:39 Lactobacillus Acidophilus (Culturelle) 1 tab DAILY ORAL 09/19/16 09:00 10/19/16 08:59 09/23/16 09:13 Magnesium Oxide (Mag-Ox 400mg) 400 mg DAILY ORAL 09/19/16 09:00 10/19/16 08:59 09/23/16 09:13 Mirtazapine (Remeron) 15 mg BEDTIME ORAL 09/18/16 21:00 10/18/16 20:59 09/22/16 20:49 Multivitamins Therapeutic (Therapeutic Multivitamin) 1 ea DAILY ORAL 09/19/16 09:00 10/19/16 08:59 09/23/16 09:13 Prednisone (predniSONE) 60 mg Taper DAILY ORAL 09/23/16 09:00 09/29/16 08:59 09/23/16 09:14 Promethazine HCl/ Codeine (Phenergan with Codeine) 5 ml Q4H PRN ORAL For Cough 09/19/16 16:30 10/19/16 16:29 Ranitidine HCl (Zantac) 150 mg BEDTIME ORAL 09/18/16 21:00 10/18/16 20:59 09/22/16 20:50 Sodium Chloride ([place] Nasal [place]) 2 spray BID NASAL 09/19/16 09:00 10/19/16 08:59 09/23/16 09:12 Theophylline ([place]-Dur) 100 mg BID ORAL 09/22/16 18:00 10/22/16 17:59 09/23/16 09:14 Tiotropium [place] (Spiriva Inhaler) 1 puff DAILY INH 09/18/16 22:00 10/18/16 21:59 09/23/16 07:41 Vitamin D (Vitamin D) 1,000 intlu DAILY ORAL 09/19/16 09:00 10/19/16 08:59 09/23/16 09:13 Daniel ([facility])Gloria NP Sep 23, 2016 12:54
[2016-09-23] MEDS: BusPIRone 10mg Tab ORAL SCH ×2 (13:00→18:06)
--- NOTE | 2016-09-23 14:57 | Internal Med Progress Note ---
Subjective Date of Service: Sep 23, 2016 Physician Name Everardo Garcia Attending Physician Reynaldo Oakley M.D. Current Medications Medications (Trade) Dose Ordered Sig/Maddy Route PRN Reason Start Time Stop Time Status Last Admin Dose Admin Amiodarone HCl (Cordarone) 200 mg BID ORAL 09/22/16 21:00 10/22/16 20:59 09/23/16 09:13 Apixaban (Eliquis) 2.5 mg Q12HR ORAL 09/18/16 21:00 10/18/16 20:59 09/23/16 09:13 Atorvastatin Calcium (Lipitor) 10 mg BEDTIME ORAL 09/22/16 21:00 10/22/16 20:59 09/22/16 20:49 Budesonide/ Formoterol Fumarate (Symbicort 160/ 4.5) 2 puff Q12HR INH 09/19/16 14:00 10/19/16 13:59 09/23/16 07:42 Buspirone HCl (Buspar) 15 mg TID ORAL 09/23/16 13:00 10/23/16 12:59 Estrogens Conjugated (Premarin Vag Cream W/JUAN) 1 applic THREE TIMES A WEEK VAGIN 09/21/16 09:00 10/21/16 08:59 09/21/16 08:46 Furosemide (Lasix) 20 mg DAILY ORAL 09/20/16 09:00 10/20/16 08:59 09/23/16 09:14 Gabapentin (Neurontin) 100 mg BID PRN ORAL NEUROPATHIC PAIN 09/18/16 21:00 10/18/16 20:59 09/23/16 13:17 Ipratropium [place] (Atrovent) 500 mcg Q4HRT HHN 09/19/16 17:00 09/24/16 16:59 09/23/16 11:39 Lactobacillus Acidophilus (Culturelle) 1 tab DAILY ORAL 09/19/16 09:00 10/19/16 08:59 09/23/16 09:13 Magnesium Oxide (Mag-Ox 400mg) 400 mg DAILY ORAL 09/19/16 09:00 10/19/16 08:59 09/23/16 09:13 Mirtazapine (Remeron) 15 mg BEDTIME ORAL 09/18/16 21:00 10/18/16 20:59 09/22/16 20:49 Multivitamins Therapeutic (Therapeutic Multivitamin) 1 ea DAILY ORAL 09/19/16 09:00 10/19/16 08:59 09/23/16 09:13 Prednisone (predniSONE) 60 mg Taper DAILY ORAL 09/23/16 09:00 09/29/16 08:59 09/23/16 09:14 Promethazine HCl/ Codeine (Phenergan with Codeine) 5 ml Q4H PRN ORAL For Cough 09/19/16 16:30 10/19/16 16:29 Ranitidine HCl (Zantac) 150 mg BEDTIME ORAL 09/18/16 21:00 10/18/16 20:59 09/22/16 20:50 Sodium Chloride ([place] Nasal [place]) 2 spray BID NASAL 09/19/16 09:00 10/19/16 08:59 09/23/16 09:12 Theophylline ([place]-Dur) 100 mg BID ORAL 09/22/16 18:00 10/22/16 17:59 09/23/16 09:14 Tiotropium [place] (Spiriva Inhaler) 1 puff DAILY INH 09/18/16 22:00 10/18/16 21:59 09/23/16 07:41 Vitamin D (Vitamin D) 1,000 intlu DAILY ORAL 09/19/16 09:00 10/19/16 08:59 09/23/16 09:13 Allergies: Coded Allergies: IODINE (Verified Allergy, Unknown, 09/18/16) PENICILLINS (Unverified Allergy, Unknown, 09/18/16) SULFACETAMIDE (Verified Allergy, Unknown, 09/18/16) Uncoded Allergies: PENICILLIN (Allergy, Unknown, 09/18/16) ROS Limited/Unobtainable: No Constitutional: Reports: no symptoms HEENT: Reports: no symptoms Cardiovascular: Reports: no symptoms Respiratory: Reports: shortness of breath Gastrointestinal/Abdominal: Reports: no symptoms Genitourinary: Reports: no symptoms Neurologic/Psychiatric: Reports: no symptoms Subjective 76 YO F admitted with shortness of breath. Now COPD exacerbation. Cover for Int Med-Dr Oakley Objective Last Vital Signs Date Time Temp Pulse Resp B/P Pulse Ox O2 Delivery O2 Flow Rate FiO2 09/23/16 12:00 97.2 69 21 112/56 95 Nasal Cannula 09/23/16 11:46 2.0 28 Laboratory Tests Test 09/22/16 22:00 09/23/16 05:30 Urine Color Pale yellow Urine Appearance Clear Urine pH 6.5 (4.5-8.0) Urine Specific [place] 1.015 (1.005-1.035) Urine Protein Negative (NEGATIVE) Urine Glucose (UA) Negative (NEGATIVE) Urine Ketones Negative (NEGATIVE) Urine Occult Blood Negative (NEGATIVE) Urine Nitrite Negative (NEGATIVE) Urine Bilirubin Negative (NEGATIVE) Urine Urobilinogen Normal MG/DL (0.0-1.0) Urine Leukocyte Esterase Negative (NEGATIVE) Urine RBC 0-2 /HPF (0 - 2) Urine WBC 0 /HPF (0 - 2) Urine Squamous Epithelial Cells Few /LPF (NONE/OCC) Urine Bacteria Occasional /HPF (NONE) White Blood Count 9.6 K/UL (4.8-10.8) Red Blood Count 3.99 M/UL (4.20-5.40) L Hemoglobin 11.5 G/DL (12.0-16.0) L Hematocrit 36.0 % (37.0-47.0) L Mean Corpuscular Volume 90 FL (80-99) Mean Corpuscular Hemoglobin 28.7 PG (27.0-31.0) Mean Corpuscular Hemoglobin Concent 31.8 G/DL (32.0-36.0) L Red Cell Distribution Width 12.3 % (11.6-14.8) Platelet Count 287 K/UL (150-450) Mean Platelet Volume 9.6 FL (6.5-10.1) Neutrophils (%) (Auto) 82.6 % (45.0-75.0) H Lymphocytes (%) (Auto) 6.5 % (20.0-45.0) L Monocytes (%) (Auto) 10.1 % (1.0-10.0) H Eosinophils (%) (Auto) 0.0 % (0.0-3.0) Basophils (%) (Auto) 0.7 % (0.0-2.0) Sodium Level 139 mEQ/L (135-145) Potassium Level 4.6 mEQ/L (3.4-4.9) Chloride Level 92 mEQ/L (98-107) L Carbon Dioxide Level 39 mEQ/L (20-30) H Anion Gap 8 (5-15) Blood Urea Nitrogen 26 mg/dL (7-23) H Creatinine 0.9 mg/dL (0.5-0.9) Estimat Glomerular Filtration Rate mL/min (>60) Glucose Level 86 mg/dL (74-106) Calcium Level 9.2 mg/dL (8.6-10.2) Microbiology Date/Time Source Procedure Growth Status 09/22/16 22:00 Urine,Clean Catch Urine Culture - Preliminary Resulted Intake and Output 09/22/16 09/23/16 19:00 07:00 Intake Total 720 ml 240 ml Balance 720 ml 240 ml Intake Oral 720 ml 240 ml # Voids 2 2 Objective General Appearance: cachetic, thin EENT: PERRL/EOMI, normal ENT inspection, TMs normal Neck: non-tender, normal alignment, supple Cardiovascular: normal peripheral pulses, normal rate, regularly irregular, no gallop/murmur, no JVD Respiratory/Chest: chest wall non-tender, respiratory distress, crackles/rales , rhonchi - bilaterally, expiratory wheezing Abdomen: normal bowel sounds, non tender, soft, no organomegaly, no mass Extremities: normal range of motion, non-tender 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 Cont amiodarone and eliquis (2) Hypothyroidism (3) Breast cancer Assessment & Plan: S/P resection and radiation tx (4) Renal cancer Assessment & Plan: S/P resection. (5) COPD exacerbation Assessment & Plan: D/C IV solumedrol; start oral prednisone. Continue theophylline per pulmonary. Cont spiriva and symbicort. (6) tremor, postural probably 2/2 polypharmacy/steroids (7) Hypoxia (8) Dyspnea Status: stable Assessment/Plan Discharge planning: [facility] [place] [facility]. EVERARDO GARCIA Sep 23, 2016 14:57
[2016-09-23 16:00] VITALS: BP 130/46
[2016-09-23 20:04] VITALS: BP 155/77
[2016-09-24 00:05] VITALS: BP 155/69
[2016-09-24] MEDS: Ipratropium 0.02% Inh Soln 2.5ml UD HHN SCH ×4 (03:33→14:57)
[2016-09-24 04:12] VITALS: BP 119/71
[2016-09-24 06:26] LABS: MEAN CORPUSCULAR HEMOGLOBIN 28.8 PG (27.0-31.0); MEAN CORPUSCULAR HGB CONC 31.4 G/DL (32.0-36.0); MEAN CORPUSCULAR VOLUME 92 FL (80-99); MEAN PLATELET VOLUME 9.9 FL (6.5-10.1); PLATELET COUNT 283 K/UL (150-450); RED CELL DISTRIBUTION WIDTH 12.5 % (11.6-14.8)
[2016-09-24 07:15] LABS: ANION GAP 9 (5-15); CALCIUM 9.3 mg/dL (8.6-10.2); CARBON DIOXIDE 37 mEQ/L (20-30); CHLORIDE 95 mEQ/L (98-107); CREATININE 0.9 mg/dL (0.5-0.9); HEMOLYSIS 3; POTASSIUM 4.4 mEQ/L (3.4-4.9); SODIUM 141 mEQ/L (135-145)
[2016-09-24 08:49] VITALS: BP 125/68
[2016-09-24] MEDS: BusPIRone 10mg Tab ORAL SCH ×2 (09:20→13:34)
[2016-09-24 09:57] LABS: BAND NEUTROPHILS % (MANUAL) 0 % (0-8); BASOPHILS % (MANUAL) 0 % (0-2); EOSINOPHILS % (MANUAL) 0 % (0-3); LYMPHOCYTES % (MANUAL) 6 % (20-45); NEUTROPHILS % (MANUAL) 92 % (45-75); PLATELET ESTIMATE ADEQUATE; PLATELET MORPHOLOGY NORMAL; TOTAL CELLS COUNTED 100
[2016-09-24 09:58] LABS: HYPOCHROMASIA 1+
[2016-09-24] MEDS: Eliquis 2.5mg tablet ORAL SCH ×2 (10:14→21:28)
[2016-09-24] MEDS: Vitamin D 1000 IU Tab ORAL SCH (10:15)
[2016-09-24] MEDS: Theophylline ER 100mg ORAL SCH (10:15)
[2016-09-24] MEDS: Ocean Nasal Spray 45ml NASAL SCH (10:15)
[2016-09-24] MEDS: PredniSONE 20mg tab ORAL SCH (10:16)
[2016-09-24] MEDS: Multivitamin w/Minerals tab ORAL SCH (10:16)
[2016-09-24] MEDS: Magnesium Oxide 400mg tab ORAL SCH (10:16)
[2016-09-24] MEDS: Lactobacillus-GG tablet ORAL SCH (10:16)
[2016-09-24] MEDS: Amiodarone 200mg tab ORAL SCH (10:17)
[2016-09-24] MEDS: Premarin Vag Cream 3gm VAGIN SCH (10:18)
--- NOTE | 2016-09-24 11:42 | Internal Med Progress Note ---
Subjective Date of Service: Sep 24, 2016 Physician Name Everardo Garcia Attending Physician Reynaldo Oakley M.D. Current Medications Medications (Trade) Dose Ordered Sig/Maddy Route PRN Reason Start Time Stop Time Status Last Admin Dose Admin Amiodarone HCl (Cordarone) 200 mg BID ORAL 09/22/16 21:00 10/22/16 20:59 09/24/16 10:17 Apixaban (Eliquis) 2.5 mg Q12HR ORAL 09/18/16 21:00 10/18/16 20:59 09/24/16 10:14 Atorvastatin Calcium (Lipitor) 10 mg BEDTIME ORAL 09/22/16 21:00 10/22/16 20:59 09/23/16 20:42 Budesonide/ Formoterol Fumarate (Symbicort 160/ 4.5) 2 puff Q12HR INH 09/19/16 14:00 10/19/16 13:59 09/24/16 09:00 Buspirone HCl (Buspar) 15 mg TID ORAL 09/23/16 13:00 10/23/16 12:59 09/24/16 09:20 Estrogens Conjugated (Premarin Vag Cream W/JUAN) 1 applic THREE TIMES A WEEK VAGIN 09/21/16 09:00 10/21/16 08:59 09/24/16 10:18 Furosemide (Lasix) 20 mg DAILY ORAL 09/20/16 09:00 10/20/16 08:59 09/24/16 10:16 Gabapentin (Neurontin) 100 mg BID PRN ORAL NEUROPATHIC PAIN 09/18/16 21:00 10/18/16 20:59 09/23/16 13:17 Ipratropium [place] (Atrovent) 500 mcg Q4HRT HHN 09/19/16 17:00 09/24/16 16:59 09/24/16 11:28 Lactobacillus Acidophilus (Culturelle) 1 tab DAILY ORAL 09/19/16 09:00 10/19/16 08:59 09/24/16 10:16 Magnesium Hydroxide (Mom) 30 ml BID PRN ORAL Constipation 09/24/16 11:45 10/24/16 11:44 Magnesium Oxide (Mag-Ox 400mg) 400 mg DAILY ORAL 09/19/16 09:00 10/19/16 08:59 09/24/16 10:16 Mirtazapine (Remeron) 15 mg BEDTIME ORAL 09/18/16 21:00 10/18/16 20:59 09/23/16 20:42 Multivitamins Therapeutic (Therapeutic Multivitamin) 1 ea DAILY ORAL 09/19/16 09:00 10/19/16 08:59 09/24/16 10:16 Prednisone (predniSONE) 50 mg Taper DAILY ORAL 09/23/16 09:00 09/29/16 08:59 09/24/16 10:16 Promethazine HCl/ Codeine (Phenergan with Codeine) 5 ml Q4H PRN ORAL For Cough 09/19/16 16:30 10/19/16 16:29 Ranitidine HCl (Zantac) 150 mg BEDTIME ORAL 09/18/16 21:00 10/18/16 20:59 09/23/16 20:42 Sodium Chloride ([place] Nasal [place]) 2 spray BID NASAL 09/19/16 09:00 10/19/16 08:59 09/24/16 10:15 Theophylline ([place]-Dur) 100 mg BID ORAL 09/22/16 18:00 10/22/16 17:59 09/24/16 10:15 Tiotropium [place] (Spiriva Inhaler) 1 puff DAILY INH 09/18/16 22:00 10/18/16 21:59 09/24/16 08:07 Vitamin D (Vitamin D) 1,000 intlu DAILY ORAL 09/19/16 09:00 10/19/16 08:59 09/24/16 10:15 Allergies: Coded Allergies: IODINE (Verified Allergy, Unknown, 09/18/16) PENICILLINS (Unverified Allergy, Unknown, 09/18/16) SULFACETAMIDE (Verified Allergy, Unknown, 09/18/16) Uncoded Allergies: PENICILLIN (Allergy, Unknown, 09/18/16) ROS Limited/Unobtainable: No Constitutional: Reports: no symptoms HEENT: Reports: no symptoms Cardiovascular: Reports: no symptoms Respiratory: Reports: cough, shortness of breath Gastrointestinal/Abdominal: Reports: no symptoms Genitourinary: Reports: no symptoms Neurologic/Psychiatric: Reports: no symptoms Subjective 76 YO F admitted with shortness of breath. Now COPD exacerbation. Cover for Int Med-Dr Oakley. C/O cough Objective Last Vital Signs Date Time Temp Pulse Resp B/P Pulse Ox O2 Delivery O2 Flow Rate FiO2 09/24/16 11:30 28 09/24/16 11:30 80 16 93 Nasal Cannula 2.0 09/24/16 08:49 97.0 125/68 Laboratory Tests Test 09/24/16 05:00 White Blood Count 10.0 K/UL (4.8-10.8) Red Blood Count 3.90 M/UL (4.20-5.40) L Hemoglobin 11.2 G/DL (12.0-16.0) L Hematocrit 35.8 % (37.0-47.0) L Mean Corpuscular Volume 92 FL (80-99) Mean Corpuscular Hemoglobin 28.8 PG (27.0-31.0) Mean Corpuscular Hemoglobin Concent 31.4 G/DL (32.0-36.0) L Red Cell Distribution Width 12.5 % (11.6-14.8) Platelet Count 283 K/UL (150-450) Mean Platelet Volume 9.9 FL (6.5-10.1) Neutrophils (%) (Auto) % (45.0-75.0) Lymphocytes (%) (Auto) % (20.0-45.0) Monocytes (%) (Auto) % (1.0-10.0) Eosinophils (%) (Auto) % (0.0-3.0) Basophils (%) (Auto) % (0.0-2.0) Differential Total Cells Counted 100 Neutrophils % (Manual) 92 % (45-75) H Lymphocytes % (Manual) 6 % (20-45) L Monocytes % (Manual) 2 % (1-10) Eosinophils % (Manual) 0 % (0-3) Basophils % (Manual) 0 % (0-2) Band Neutrophils 0 % (0-8) Platelet Estimate Adequate Platelet Morphology Normal Hypochromasia 1+ Sodium Level 141 mEQ/L (135-145) Potassium Level 4.4 mEQ/L (3.4-4.9) Chloride Level 95 mEQ/L (98-107) L Carbon Dioxide Level 37 mEQ/L (20-30) H Anion Gap 9 (5-15) Blood Urea Nitrogen 26 mg/dL (7-23) H Creatinine 0.9 mg/dL (0.5-0.9) Estimat Glomerular Filtration Rate mL/min (>60) Glucose Level 94 mg/dL (74-106) Calcium Level 9.3 mg/dL (8.6-10.2) Microbiology Date/Time Source Procedure Growth Status 09/22/16 22:00 Urine,Clean Catch Urine Culture - Preliminary Gram Negative Bacillus 1 Resulted Intake and Output 09/23/16 09/24/16 19:00 07:00 # Voids 3 2 Objective General Appearance: cachetic, thin EENT: PERRL/EOMI, normal ENT inspection, TMs normal Neck: non-tender, normal alignment, supple Cardiovascular: normal peripheral pulses, normal rate, regularly irregular, no gallop/murmur, no JVD Respiratory/Chest: chest wall non-tender, respiratory distress, crackles/rales , rhonchi - bilaterally, expiratory wheezing Abdomen: normal bowel sounds, non tender, soft, no organomegaly, no mass Extremities: normal range of motion, non-tender 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 Cont amiodarone and eliquis (2) Hypothyroidism (3) Breast cancer Assessment & Plan: S/P resection and radiation tx (4) Renal cancer Assessment & Plan: S/P resection. (5) COPD exacerbation Assessment & Plan: D/C IV solumedrol; start oral prednisone taper. Continue theophylline per pulmonary. Cont spiriva and symbicort. (6) tremor, postural probably 2/2 polypharmacy/steroids (7) Hypoxia (8) Dyspnea (9) Cough Assessment & Plan: Repeat CXR today. Status: progressing Assessment/Plan Discharge planning: Rehab of [facility] shelter fac. EVERARDO GARCIA Sep 24, 2016 11:42
[2016-09-24] MEDS ORDERED: Milk of Magnesia 30ml Ud ORAL PRN (11:45)
[2016-09-24 12:46] VITALS: BP 116/81
--- NOTE | 2016-09-24 13:04 | Consultation ---
Consult Note Consult Note ID Dic# [id number] EKTA DEMPSEY M.D. Sep 24, 2016 13:04
--- NOTE | 2016-09-24 14:49 | Cardiac Electrophysiology PN ---
Assessment/Plan Assessment/Plan 1. Paroxysmal atrial fibrillation. Continue Eliquis 2.5 mg b.i.d. and decrease amiodarone to 200 mg daily . Off beta-blockers for chronic obstructive pulmonary disease. 2. Diastolic congestive heart failure, on Lasix 20 mg every day. 3. Exacerbation of chronic obstructive pulmonary disease. On oxygen and Atrovent and Symbicort as well as Solu-Medrol per Dr. Morel 4. Hyperlipidemia, on Lipitor. 5. Lower extremity deep vein thrombosis. on Eliquis at this time. 6. Nausea and Vomiting. DW RN and daughter Subjective Subjective Very nauseous. Just vomited.Daughter at bedside. Objective Last 24 Hour Vital Signs Date Time Temp Pulse Resp B/P Pulse Ox O2 Delivery O2 Flow Rate FiO2 09/24/16 12:46 97.7 93 21 116/81 94 Nasal Cannula 2.0 09/24/16 11:40 68 16 98 Nasal Cannula 2.0 28 09/24/16 11:30 28 09/24/16 11:30 80 16 93 Nasal Cannula 2.0 28 09/24/16 08:49 97.0 78 19 125/68 94 Room Air 4.0 09/24/16 08:24 87 16 91 Nasal Cannula 55 09/24/16 08:24 88 16 93 Nasal Cannula 55 09/24/16 08:20 77 16 98 Nasal Cannula 2.0 28 09/24/16 08:11 68 15 88 Nasal Cannula 2.0 28 09/24/16 08:11 28 09/24/16 08:00 Nasal Cannula 2.0 28 09/24/16 08:00 88 Nasal Cannula 2.0 28 09/24/16 04:12 97.2 68 18 119/71 98 Room Air 09/24/16 03:10 82 16 99 Nasal Cannula 2.0 28 09/24/16 03:00 79 16 94 Nasal Cannula 2.0 28 09/24/16 03:00 28 09/24/16 00:05 96.4 81 19 155/69 92 Nasal Cannula 2.0 09/23/16 23:12 79 16 96 Nasal Cannula 2.0 28 09/23/16 23:00 28 09/23/16 23:00 68 16 92 Nasal Cannula 2.0 28 09/23/16 20:04 97.0 76 18 155/77 92 Nasal Cannula 2.0 09/23/16 19:49 28 09/23/16 19:48 Nasal Cannula 2.0 28 09/23/16 19:30 78 16 96 Nasal Cannula 2.0 28 09/23/16 19:00 77 16 92 Nasal Cannula 2.0 28 09/23/16 19:00 96 Nasal Cannula 2.0 28 09/23/16 16:00 97.5 63 20 130/46 96 Nasal Cannula 09/23/16 15:23 63 16 96 Nasal Cannula 2.0 28 09/23/16 15:11 28 09/23/16 15:11 67 16 92 Nasal Cannula 2.0 28 Intake and Output 09/23/16 09/24/16 19:00 07:00 # Voids 3 2 Laboratory Tests Test 09/24/16 05:00 White Blood Count 10.0 K/UL (4.8-10.8) Red Blood Count 3.90 M/UL (4.20-5.40) L Hemoglobin 11.2 G/DL (12.0-16.0) L Hematocrit 35.8 % (37.0-47.0) L Mean Corpuscular Volume 92 FL (80-99) Mean Corpuscular Hemoglobin 28.8 PG (27.0-31.0) Mean Corpuscular Hemoglobin Concent 31.4 G/DL (32.0-36.0) L Red Cell Distribution Width 12.5 % (11.6-14.8) Platelet Count 283 K/UL (150-450) Mean Platelet Volume 9.9 FL (6.5-10.1) Neutrophils (%) (Auto) % (45.0-75.0) Lymphocytes (%) (Auto) % (20.0-45.0) Monocytes (%) (Auto) % (1.0-10.0) Eosinophils (%) (Auto) % (0.0-3.0) Basophils (%) (Auto) % (0.0-2.0) Differential Total Cells Counted 100 Neutrophils % (Manual) 92 % (45-75) H Lymphocytes % (Manual) 6 % (20-45) L Monocytes % (Manual) 2 % (1-10) Eosinophils % (Manual) 0 % (0-3) Basophils % (Manual) 0 % (0-2) Band Neutrophils 0 % (0-8) Platelet Estimate Adequate Platelet Morphology Normal Hypochromasia 1+ Sodium Level 141 mEQ/L (135-145) Potassium Level 4.4 mEQ/L (3.4-4.9) Chloride Level 95 mEQ/L (98-107) L Carbon Dioxide Level 37 mEQ/L (20-30) H Anion Gap 9 (5-15) Blood Urea Nitrogen 26 mg/dL (7-23) H Creatinine 0.9 mg/dL (0.5-0.9) Estimat Glomerular Filtration Rate mL/min (>60) Glucose Level 94 mg/dL (74-106) Calcium Level 9.3 mg/dL (8.6-10.2) Microbiology Date/Time Source Procedure Growth Status 09/22/16 22:00 Urine,Clean Catch Urine Culture - Preliminary Gram Negative Bacillus 1 Resulted Objective HEAD AND NECK: Mild JVD. LUNGS: Coarse rhonchi. CARDIOVASCULAR: Irregular S1 and S2 with no gallop or murmur. ABDOMEN: Soft and nontender. EXTREMITIES: No edema. TODD HAINES Sep 24, 2016 14:49
--- NOTE | 2016-09-24 15:59 | Diagnostic Imaging Report ---
Indication: COUGH Technique: One view of the chest Comparison: 09/18/2016 Findings: Atelectatic changes are again demonstrated at the right lung base. There may be a component of scarring as well. Probable scarring is seen in the left perihilar region. Lungs are slightly hyperinflated with some flattening of the diaphragms. Surgical clips are seen in the right axilla. No new infiltrates. Impression: Unchanged, over 6 days, findings as above. No definite acute process
[2016-09-24 16:57] VITALS: BP 118/83
[2016-09-24 20:00] VITALS: BP 113/60
[2016-09-24] MEDS ORDERED: Promethazine/Codeine 5ml UD ORAL PRN (20:30)
[2016-09-24] MEDS ORDERED: Premarin Vag Cream 3gm VAGIN SCH (21:00)
--- NOTE | 2016-09-24 22:44 | Cardiology Report ---
APPROVED REPORT EKG Measurement Heart [id number] Normal sinus rhythm Normal ECG
--- NOTE | 2016-09-24 23:04 | Pulmonology Progress Note ---
Assessment/Plan Problems: (1) COPD exacerbation (2) Cor pulmonale (3) Hypoxia Assessment/Plan po steroids taper theophyline on hold b/o tachycardia IV antibiotics check sputum titrate fio2 to sat of 92% transfer to [facility] to control heart rate. Subjective Interval Events: less short of breath Allergies: Coded Allergies: IODINE (Verified Allergy, Unknown, 09/18/16) PENICILLINS (Unverified Allergy, Unknown, 09/18/16) SULFACETAMIDE (Verified Allergy, Unknown, 09/18/16) Objective Last 24 Hour Vital Signs Date Time Temp Pulse Resp B/P Pulse Ox O2 Delivery O2 Flow Rate FiO2 09/24/16 20:00 98.4 96 21 113/60 90 Nasal Cannula 2.0 09/24/16 19:46 92 Nasal Cannula 2.0 28 09/24/16 19:46 Nasal Cannula 2.0 28 09/24/16 16:57 97.0 117 21 118/83 94 Nasal Cannula 2.0 09/24/16 15:12 120 18 98 Nasal Cannula 2.0 28 09/24/16 14:59 28 09/24/16 14:59 102 16 91 Nasal Cannula 2.0 28 09/24/16 12:46 97.7 93 21 116/81 94 Nasal Cannula 2.0 09/24/16 11:40 68 16 98 Nasal Cannula 2.0 28 09/24/16 11:30 28 09/24/16 11:30 80 16 93 Nasal Cannula 2.0 28 09/24/16 08:49 97.0 78 19 125/68 94 Room Air 4.0 09/24/16 08:24 87 16 91 Nasal Cannula 55 09/24/16 08:24 88 16 93 Nasal Cannula 55 09/24/16 08:20 77 16 98 Nasal Cannula 2.0 28 09/24/16 08:11 68 15 88 Nasal Cannula 2.0 28 09/24/16 08:11 28 09/24/16 08:00 Nasal Cannula 2.0 28 09/24/16 08:00 88 Nasal Cannula 2.0 28 09/24/16 04:12 97.2 68 18 119/71 98 Room Air 09/24/16 03:10 82 16 99 Nasal Cannula 2.0 28 09/24/16 03:00 79 16 94 Nasal Cannula 2.0 28 09/24/16 03:00 28 09/24/16 00:05 96.4 81 19 155/69 92 Nasal Cannula 2.0 09/23/16 23:12 79 16 96 Nasal Cannula 2.0 28 Intake and Output 09/23/16 09/24/16 19:00 07:00 # Voids 3 2 Objective General Appearance: WD/WN, no apparent distress Lines, tubes and drains: peripheral HEENT: normocephalic, atraumatic Neck: non-tender, supple Respiratory/Chest: chest wall non-tender, decreased breath sounds Cardiovascular/Chest: normal peripheral pulses, normal rate Abdomen: normal bowel sounds Genitourinary/Rectal: normal genital exam Extremities: normal range of motion Microbiology Date/Time Source Procedure Growth Status 09/22/16 22:00 Urine,Clean Catch Urine Culture - Preliminary Gram Negative Bacillus 1 Resulted Laboratory Tests 09/24/16 05:00: White Blood Count 10.0, Red Blood Count 3.90L, Hemoglobin 11.2L, Hematocrit 35.8L, Mean Corpuscular Volume 92, Mean Corpuscular Hemoglobin 28.8, Mean Corpuscular Hemoglobin Concent 31.4L, Red Cell Distribution Width 12.5, Platelet Count 283, Mean Platelet Volume 9.9, Neutrophils (%) (Auto) , Lymphocytes (%) (Auto) , Monocytes (%) (Auto) , Eosinophils (%) (Auto) , Basophils (%) (Auto) , Differential Total Cells Counted 100, Neutrophils % ( Manual) 92H, Lymphocytes % (Manual) 6L, Monocytes % (Manual) 2, Eosinophils % ( Manual) 0, Basophils % (Manual) 0, Band Neutrophils 0, Platelet Estimate Adequate, Platelet Morphology Normal, Hypochromasia 1+, Sodium Level 141, Potassium Level 4.4, Chloride Level 95L, Carbon Dioxide Level 37H, Anion Gap 9, Blood Urea Nitrogen 26H, Creatinine 0.9, Estimat Glomerular Filtration Rate , Glucose Level 94, Calcium Level 9.3 Current Medications Medications (Trade) Dose Ordered Sig/Maddy Route PRN Reason Start Time Stop Time Status Last Admin Dose Admin Amiodarone HCl (Cordarone) 200 mg DAILY ORAL 09/25/16 09:00 10/25/16 08:59 Apixaban (Eliquis) 2.5 mg Q12HR ORAL 09/24/16 21:00 10/24/16 20:59 09/24/16 21:28 Atorvastatin Calcium (Lipitor) 10 mg BEDTIME ORAL 09/24/16 21:00 10/24/16 20:59 09/24/16 21:29 Budesonide/ Formoterol Fumarate (Symbicort 160/ 4.5) 2 puff Q12HR INH 09/24/16 21:00 10/24/16 20:59 09/24/16 19:46 Buspirone HCl (Buspar) 15 mg TID ORAL 09/25/16 09:00 10/25/16 08:59 Estrogens Conjugated (Premarin Vag Cream W/JUAN) 1 applic MoWeFr@2100 VAGIN 09/24/16 21:00 10/24/16 20:59 09/24/16 21:29 Furosemide (Lasix) 20 mg DAILY ORAL 09/25/16 09:00 10/25/16 08:59 Gabapentin (Neurontin) 100 mg BID PRN ORAL NEUROPATHIC PAIN 09/25/16 09:00 10/25/16 08:59 Lactobacillus Acidophilus (Culturelle) 1 tab DAILY ORAL 09/25/16 09:00 10/25/16 08:59 Levofloxacin (Levaquin) 50 ml @ 50 mls/hr Q24H IVPB 09/25/16 13:00 10/02/16 12:59 Magnesium Hydroxide (Mom) 30 ml BID PRN ORAL Constipation 09/25/16 09:00 10/25/16 08:59 Magnesium Oxide (Mag-Ox 400mg) 400 mg DAILY ORAL 09/25/16 09:00 10/25/16 08:59 Mirtazapine (Remeron) 15 mg BEDTIME ORAL 09/24/16 21:00 10/24/16 20:59 09/24/16 21:29 Multivitamins Therapeutic (Therapeutic Multivitamin) 1 ea DAILY ORAL 09/25/16 09:00 10/25/16 08:59 Prednisone (predniSONE) 50 mg Taper DAILY ORAL 09/25/16 09:00 10/01/16 08:59 Promethazine HCl/ Codeine (Phenergan with Codeine) 5 ml Q4H PRN ORAL For Cough 09/24/16 20:30 10/24/16 20:29 Ranitidine HCl (Zantac) 150 mg BEDTIME ORAL 09/24/16 21:00 5/17/17 20:59 09/24/16 21:28 Sodium Chloride ([place] Nasal [place]) 2 spray BID NASAL 09/25/16 09:00 10/25/16 08:59 Tiotropium [place] (Spiriva Inhaler) 1 puff DAILY INH 09/25/16 09:00 10/25/16 08:59 Vitamin D (Vitamin D) 1,000 intlu DAILY ORAL 09/25/16 09:00 10/25/16 08:59 SABRINA GOLDBERG Sep 24, 2016 23:04
[2016-09-25] VITALS: BP 131/68
--- NOTE | 2016-09-25 00:17 | Consultation ---
DATE OF CONSULTATION: 09/24/2016 CONSULTING PHYSICIAN: Giovanni Huerta M.D. REFERRING PHYSICIAN: Minh Delgado M.D REASON FOR CONSULTATION: Evaluation of the patient for urinary tract infection. HISTORY OF PRESENT ILLNESS: The patient is a 76-year-old female with multiple medical problems, who has been admitted to this medical center for shortness of breath and COPD exacerbation. The patient is started on Solu-Medrol. Now the patient's urine culture is growing gram-negative rods and Infectious Disease consultation has been requested for further evaluation of the patient and antibiotic management. The patient does not have significant dysuria, flank tenderness, fever, or chills. PAST MEDICAL HISTORY: 1. Chronic obstructive pulmonary disease. 2. Atrial fibrillation. 3. Hypothyroidism. 4. History of right breast cancer. 5. History of right renal cancer. 6. Status post right breast lumpectomy. 7. History of right nephrectomy. 8. Thyroidectomy. 9. Cholecystectomy. MEDICATIONS: . ALLERGIES: Penicillin, sulfa drugs, and iodine. FAMILY HISTORY: Noncontributory. REVIEW OF SYSTEMS: A 10-point review was done and except what is mentioned has been negative.HEENT: No recent change in vision or hearing. Pulmonary: No shortness of breath. Cardiovascular: No chest pain or palpitations. Abdomen: No nausea or vomiting. Genitourinary: As mentioned above. Neurologic: No seizure. PHYSICAL EXAMINATION: VITAL SIGNS: Temperature 97.1 degrees, blood pressure 116/81, pulse 86, respiratory rate 18. HEENT: Mild pale conjunctivae. No icterus. No pallor. CHEST: Clear. HEART: S1 and S2. ABDOMEN: Soft and nontender. EXTREMITIES: No cyanosis. NEUROLOGIC: Awake. LABORATORY DATA: White blood cells 10, hemoglobin 11.2, and platelets 283,000. UA is unremarkable. BUN 30, creatinine 0.9. ALT and AST appeared overall unremarkable. BNP 592. ASSESSMENT: The patient is a 76-year-old female, who came to the hospital with chronic obstructive pulmonary disease exacerbation. The patient's urine culture is growing gram-negative rods. This may be suggestive of asymptomatic bacteriuria. PLAN: 1. I agree with the patient on Levaquin for 5 days, then we will have COPD coverage and coverage. 2. BMP. 3. Monitor for final urine culture. 4. Monitor chest x-ray. 5. Based on patient's labs, we will do further recommendation. Thank you, Dr. Delgado, for allowing me to participate in the care of this patient. I will follow the patient with you during this hospitalization. Giovanni Huerta M.D. DR: Marciano JOB#: [id number] CC:
[2016-09-25 04:00] VITALS: BP 117/53
[2016-09-25 07:43] VITALS: BP 138/67
[2016-09-25 08:04] LABS: BASOPHILS % (AUTO) 0.3 % (0.0-2.0); LYMPHOCYTES % (AUTO) 7.1 % (20.0-45.0); MEAN CORPUSCULAR HEMOGLOBIN 28.5 PG (27.0-31.0); MEAN CORPUSCULAR HGB CONC 31.4 G/DL (32.0-36.0); MEAN CORPUSCULAR VOLUME 91 FL (80-99); MEAN PLATELET VOLUME 10.2 FL (6.5-10.1); MONOCYTES % (AUTO) 12.2 % (1.0-10.0); NEUTROPHILS % (AUTO) 80.3 % (45.0-75.0); PLATELET COUNT 294 K/UL (150-450); RED BLOOD COUNT 4.04 M/UL (4.20-5.40); RED CELL DISTRIBUTION WIDTH 12.5 % (11.6-14.8); WHITE BLOOD COUNT 9.5 K/UL (4.8-10.8)
[2016-09-25 08:08] LABS: ANION GAP 6 (5-15); CALCIUM 9.3 mg/dL (8.6-10.2); CARBON DIOXIDE 38 mEQ/L (20-30); CHLORIDE 94 mEQ/L (98-107); HEMOLYSIS 0; POTASSIUM 4.3 mEQ/L (3.4-4.9); SODIUM 138 mEQ/L (135-145)
--- NOTE | 2016-09-25 08:44 | Cardiology Report ---
APPROVED REPORT EXAM: Two-dimensional and M-mode echocardiogram with Doppler and color Doppler. INDICATION Congestive Heart Failure M-Mode DIMENSIONS IVSd0.7 (0.7-1.1cm)Left Atrium (MM)3.5 (1.6-4.0cm) LVDd4.3 (3.5-5.6cm)Aortic Root2.9 (2.0-3.7cm) PWd0.7 (0.7-1.1cm)Aortic Cusp Exc.1.6 (1.5-2.0cm) LVDs2.8 (2.5-4.0cm) PWs1.0 cm Technically difficult study due to poor acoustic windows. Normal left ventricular chamber size, systolic function and wall motion. Left ventricular ejection fraction estimated to be 55-60 %. No evidence of left ventricular hypertrophy. No evidence of pericardial fat or effusion. All other cardiac chamber sizes are within normal limits. Focal aortic valve sclerosis with adequate cusp excursion Thickened mitral valve leaflets with normal excursion. Mild mitral annulus and aortic root calcification. Pulmonic valve not well visualized. Normal tricuspid valve structure. IVC is normal in size with physiologic collapse. A color flow and spectral Doppler study was performed and revealed: No aortic regurgitation. Trace mitral regurgitation. Left ventricular diastolic dysfunction grade 1. Mild tricuspid regurgitation. Tricuspid systolic velocities suggests peak right ventricular systolic pressure of 38 mmHg Consistent with mild pulmonary hypertension.
[2016-09-25] MEDS ORDERED: Amiodarone 200mg tab ORAL SCH (09:00)
[2016-09-25] MEDS ORDERED: Milk of Magnesia 30ml Ud ORAL PRN (09:00)
[2016-09-25] MEDS: Ocean Nasal Spray 45ml NASAL SCH ×2 (09:53→17:35)
[2016-09-25] MEDS: PredniSONE 20mg tab ORAL SCH (09:55)
[2016-09-25] MEDS: Magnesium Oxide 400mg tab ORAL SCH (09:56)
[2016-09-25] MEDS: Vitamin D 1000 IU Tab ORAL SCH (09:56)
[2016-09-25] MEDS: BusPIRone 10mg Tab ORAL SCH ×3 (09:56→17:36)
[2016-09-25] MEDS: Eliquis 2.5mg tablet ORAL SCH ×2 (09:56→20:46)
[2016-09-25] MEDS: Amiodarone 200mg tab ORAL SCH (09:56)
[2016-09-25] MEDS: Lactobacillus-GG tablet ORAL SCH (09:57)
[2016-09-25] MEDS: Multivitamin w/Minerals tab ORAL SCH (09:57)
[2016-09-25] MEDS ORDERED: NS 275ml ONE (10:20)
[2016-09-25] MEDS ORDERED: Tubing IV Secondary IV ONE (10:20)
--- NOTE | 2016-09-25 10:58 | Infectious Diseases Prog Note ---
Assessment/Plan Assessment/Plan A: The patient is a 76-year-old female with UTI, probable UCx : GNR and GPC COPD exacerbation Atrial fibrillation Hypothyroidism History of right breast cancer History of right renal cancer Status post right breast lumpectomy History of right nephrectomy Thyroidectomy Cholecystectomy PLAN: on Levaquin d # 2 / 5 days ( COPD coverage and coverage ) CBC and BMP Urine culture Monitor chest x-ray. Subjective Constitutional: Denies: anorexia, chills, drenching sweats, fatigue, fever, no symptoms, other Allergies: Coded Allergies: IODINE (Verified Allergy, Unknown, 09/18/16) PENICILLINS (Unverified Allergy, Unknown, 09/18/16) SULFACETAMIDE (Verified Allergy, Unknown, 09/18/16) Objective Vital Signs Last 24 Hour Vital Signs Date Time Temp Pulse Resp B/P Pulse Ox O2 Delivery O2 Flow Rate FiO2 09/25/16 07:51 Nasal Cannula 2.0 28 09/25/16 07:50 92 Nasal Cannula 2.0 28 09/25/16 07:43 97.7 71 18 138/67 91 Nasal Cannula 2.0 09/25/16 04:00 97.9 70 19 117/53 95 Nasal Cannula 2.0 09/25/16 04:00 62 09/25/16 00:00 97.9 74 22 131/68 92 Nasal Cannula 2.0 09/24/16 23:00 65 09/24/16 20:00 98.4 96 21 113/60 90 Nasal Cannula 2.0 09/24/16 19:46 92 Nasal Cannula 2.0 28 09/24/16 19:46 Nasal Cannula 2.0 28 09/24/16 16:57 97.0 117 21 118/83 94 Nasal Cannula 2.0 09/24/16 15:12 120 18 98 Nasal Cannula 2.0 28 09/24/16 14:59 28 09/24/16 14:59 102 16 91 Nasal Cannula 2.0 28 09/24/16 12:46 97.7 93 21 116/81 94 Nasal Cannula 2.0 09/24/16 11:40 68 16 98 Nasal Cannula 2.0 28 09/24/16 11:30 28 09/24/16 11:30 80 16 93 Nasal Cannula 2.0 28 Height (Feet): 5 Height (Inches): 2.00 Weight (Pounds): 100 HEENT: atraumatic Respiratory/Chest: no respiratory distress Cardiovascular: regular rhythm Abdomen: no mass Microbiology Date/Time Source Procedure Growth Status 09/22/16 22:00 Urine,Clean Catch Urine Culture - Preliminary Gram Negative Bacillus 1 Gram Positive Cocci Resulted Laboratory Tests Test 09/25/16 07:25 White Blood Count 9.5 K/UL (4.8-10.8) Red Blood Count 4.04 M/UL (4.20-5.40) L Hemoglobin 11.5 G/DL (12.0-16.0) L Hematocrit 36.7 % (37.0-47.0) L Mean Corpuscular Volume 91 FL (80-99) Mean Corpuscular Hemoglobin 28.5 PG (27.0-31.0) Mean Corpuscular Hemoglobin Concent 31.4 G/DL (32.0-36.0) L Red Cell Distribution Width 12.5 % (11.6-14.8) Platelet Count 294 K/UL (150-450) Mean Platelet Volume 10.2 FL (6.5-10.1) H Neutrophils (%) (Auto) 80.3 % (45.0-75.0) H Lymphocytes (%) (Auto) 7.1 % (20.0-45.0) L Monocytes (%) (Auto) 12.2 % (1.0-10.0) H Eosinophils (%) (Auto) 0.0 % (0.0-3.0) Basophils (%) (Auto) 0.3 % (0.0-2.0) Sodium Level 138 mEQ/L (135-145) Potassium Level 4.3 mEQ/L (3.4-4.9) Chloride Level 94 mEQ/L (98-107) L Carbon Dioxide Level 38 mEQ/L (20-30) H Anion Gap 6 (5-15) Blood Urea Nitrogen 23 mg/dL (7-23) Creatinine 1.0 mg/dL (0.5-0.9) H Estimat Glomerular Filtration Rate mL/min (>60) Glucose Level 87 mg/dL (74-106) Calcium Level 9.3 mg/dL (8.6-10.2) Current Medications Medications (Trade) Dose Ordered Sig/Maddy Route PRN Reason Start Time Stop Time Status Last Admin Dose Admin Amiodarone HCl (Cordarone) 200 mg DAILY ORAL 09/25/16 09:00 10/25/16 08:59 09/25/16 09:56 Apixaban (Eliquis) 2.5 mg Q12HR ORAL 09/24/16 21:00 10/24/16 20:59 09/25/16 09:56 Atorvastatin Calcium (Lipitor) 10 mg BEDTIME ORAL 09/24/16 21:00 10/24/16 20:59 09/24/16 21:29 Budesonide/ Formoterol Fumarate (Symbicort 160/ 4.5) 2 puff Q12HR INH 09/24/16 21:00 10/24/16 20:59 09/25/16 10:08 Buspirone HCl (Buspar) 15 mg TID ORAL 09/25/16 09:00 10/25/16 08:59 09/25/16 09:56 Estrogens Conjugated (Premarin Vag Cream W/JUAN) 1 applic MoWeFr@2100 VAGIN 09/24/16 21:00 10/24/16 20:59 09/24/16 21:29 Furosemide (Lasix) 20 mg DAILY ORAL 09/25/16 09:00 10/25/16 08:59 09/25/16 09:54 Gabapentin (Neurontin) 100 mg BID PRN ORAL NEUROPATHIC PAIN 09/25/16 09:00 10/25/16 08:59 Lactobacillus Acidophilus (Culturelle) 1 tab DAILY ORAL 09/25/16 09:00 10/25/16 08:59 09/25/16 09:57 Levofloxacin (Levaquin) 50 ml @ 50 mls/hr Q24H IVPB 09/25/16 13:00 10/02/16 12:59 Magnesium Hydroxide (Mom) 30 ml BID PRN ORAL Constipation 09/25/16 09:00 10/25/16 08:59 Magnesium Oxide (Mag-Ox 400mg) 400 mg DAILY ORAL 09/25/16 09:00 10/25/16 08:59 09/25/16 09:56 Mirtazapine (Remeron) 15 mg BEDTIME ORAL 09/24/16 21:00 10/24/16 20:59 09/24/16 21:29 Multivitamins Therapeutic (Therapeutic Multivitamin) 1 ea DAILY ORAL 09/25/16 09:00 10/25/16 08:59 09/25/16 09:57 Prednisone (predniSONE) 60 mg Taper DAILY ORAL 09/25/16 09:00 10/01/16 08:59 09/25/16 09:55 Promethazine HCl/ Codeine (Phenergan with Codeine) 5 ml Q4H PRN ORAL For Cough 09/24/16 20:30 10/24/16 20:29 Ranitidine HCl (Zantac) 150 mg BEDTIME ORAL 09/24/16 21:00 10/24/16 20:59 09/24/16 21:28 Sodium Chloride ([place] Nasal [place]) 2 spray BID NASAL 09/25/16 09:00 10/25/16 08:59 09/25/16 09:53 Tiotropium [place] (Spiriva Inhaler) 1 puff DAILY INH 09/25/16 09:00 10/25/16 08:59 Vitamin D (Vitamin D) 1,000 intlu DAILY ORAL 09/25/16 09:00 10/25/16 08:59 09/25/16 09:56 EKTA DEMPSEY M.D. Sep 25, 2016 10:58
[2016-09-25 11:23] VITALS: BP 119/46
[2016-09-25] MEDS ORDERED: Levofloxacin 250mg/D5W 50ml IVPB SCH (13:00)
[2016-09-25 15:16] VITALS: BP 121/61
--- NOTE | 2016-09-25 15:23 | Internal Med Progress Note ---
Subjective Date of Service: Sep 25, 2016 Physician Name Everardo Delgado Attending Physician Reynaldo Oakley M.D. Current Medications Medications (Trade) Dose Ordered Sig/Maddy Route PRN Reason Start Time Stop Time Status Last Admin Dose Admin Amiodarone HCl (Cordarone) 200 mg DAILY ORAL 09/25/16 09:00 10/25/16 08:59 09/25/16 09:56 Apixaban (Eliquis) 2.5 mg Q12HR ORAL 09/24/16 21:00 10/24/16 20:59 09/25/16 09:56 Atorvastatin Calcium (Lipitor) 10 mg BEDTIME ORAL 09/24/16 21:00 10/24/16 20:59 09/24/16 21:29 Budesonide/ Formoterol Fumarate (Symbicort 160/ 4.5) 2 puff Q12HR INH 09/24/16 21:00 10/24/16 20:59 09/25/16 10:08 Buspirone HCl (Buspar) 15 mg TID ORAL 09/25/16 09:00 10/25/16 08:59 09/25/16 13:19 Estrogens Conjugated (Premarin Vag Cream W/JUAN) 1 applic MoWeFr@2100 VAGIN 09/24/16 21:00 10/24/16 20:59 09/24/16 21:29 Furosemide (Lasix) 20 mg DAILY ORAL 09/25/16 09:00 10/25/16 08:59 09/25/16 09:54 Gabapentin (Neurontin) 100 mg BID PRN ORAL NEUROPATHIC PAIN 09/25/16 09:00 10/25/16 08:59 09/25/16 11:32 Lactobacillus Acidophilus (Culturelle) 1 tab DAILY ORAL 09/25/16 09:00 10/25/16 08:59 09/25/16 09:57 Levofloxacin (Levaquin) 50 ml @ 50 mls/hr Q24H IVPB 09/25/16 13:00 10/02/16 12:59 09/25/16 13:49 Magnesium Hydroxide (Mom) 30 ml BID PRN ORAL Constipation 09/25/16 09:00 10/25/16 08:59 Magnesium Oxide (Mag-Ox 400mg) 400 mg DAILY ORAL 09/25/16 09:00 10/25/16 08:59 09/25/16 09:56 Mirtazapine (Remeron) 15 mg BEDTIME ORAL 09/24/16 21:00 10/24/16 20:59 09/24/16 21:29 Multivitamins Therapeutic (Therapeutic Multivitamin) 1 ea DAILY ORAL 09/25/16 09:00 10/25/16 08:59 09/25/16 09:57 Prednisone (predniSONE) 60 mg Taper DAILY ORAL 09/25/16 09:00 10/01/16 08:59 09/25/16 09:55 Promethazine HCl/ Codeine (Phenergan with Codeine) 5 ml Q4H PRN ORAL For Cough 09/24/16 20:30 10/24/16 20:29 Ranitidine HCl (Zantac) 150 mg BEDTIME ORAL 09/24/16 21:00 10/24/16 20:59 09/24/16 21:28 Sodium Chloride ([place] Nasal [place]) 2 spray BID NASAL 09/25/16 09:00 10/25/16 08:59 09/25/16 09:53 Tiotropium [place] (Spiriva Inhaler) 1 puff DAILY INH 09/25/16 09:00 10/25/16 08:59 09/25/16 12:04 Vitamin D (Vitamin D) 1,000 intlu DAILY ORAL 09/25/16 09:00 10/25/16 08:59 09/25/16 09:56 Allergies: Coded Allergies: IODINE (Verified Allergy, Unknown, 09/18/16) PENICILLINS (Unverified Allergy, Unknown, 09/18/16) SULFACETAMIDE (Verified Allergy, Unknown, 09/18/16) ROS Limited/Unobtainable: No Constitutional: Reports: no symptoms HEENT: Reports: no symptoms Cardiovascular: Reports: no symptoms Respiratory: Reports: no symptoms Gastrointestinal/Abdominal: Reports: no symptoms Genitourinary: Reports: no symptoms Neurologic/Psychiatric: Reports: no symptoms Subjective 76 YO F admitted with shortness of breath. Now COPD exacerbation. Cover for Int Med-Dr Oakley. Transferred to [facility] overnight due to atrial fib with rapid ventricular rate. Objective Last Vital Signs Date Time Temp Pulse Resp B/P Pulse Ox O2 Delivery O2 Flow Rate FiO2 09/25/16 11:48 71 09/25/16 11:23 97.0 18 119/46 92 Nasal Cannula 2.0 09/25/16 07:51 28 Laboratory Tests Test 09/25/16 07:25 White Blood Count 9.5 K/UL (4.8-10.8) Red Blood Count 4.04 M/UL (4.20-5.40) L Hemoglobin 11.5 G/DL (12.0-16.0) L Hematocrit 36.7 % (37.0-47.0) L Mean Corpuscular Volume 91 FL (80-99) Mean Corpuscular Hemoglobin 28.5 PG (27.0-31.0) Mean Corpuscular Hemoglobin Concent 31.4 G/DL (32.0-36.0) L Red Cell Distribution Width 12.5 % (11.6-14.8) Platelet Count 294 K/UL (150-450) Mean Platelet Volume 10.2 FL (6.5-10.1) H Neutrophils (%) (Auto) 80.3 % (45.0-75.0) H Lymphocytes (%) (Auto) 7.1 % (20.0-45.0) L Monocytes (%) (Auto) 12.2 % (1.0-10.0) H Eosinophils (%) (Auto) 0.0 % (0.0-3.0) Basophils (%) (Auto) 0.3 % (0.0-2.0) Sodium Level 138 mEQ/L (135-145) Potassium Level 4.3 mEQ/L (3.4-4.9) Chloride Level 94 mEQ/L (98-107) L Carbon Dioxide Level 38 mEQ/L (20-30) H Anion Gap 6 (5-15) Blood Urea Nitrogen 23 mg/dL (7-23) Creatinine 1.0 mg/dL (0.5-0.9) H Estimat Glomerular Filtration Rate mL/min (>60) Glucose Level 87 mg/dL (74-106) Calcium Level 9.3 mg/dL (8.6-10.2) Microbiology Date/Time Source Procedure Growth Status 09/22/16 22:00 Urine,Clean Catch Urine Culture - Preliminary Gram Negative Bacillus 1 Gram Positive Cocci Resulted Intake and Output 09/24/16 09/25/16 19:00 07:00 Intake Total 480 ml 200 ml Output Total 200 ml Balance 280 ml 200 ml Intake Oral 480 ml 200 ml Output Urine Total 200 ml # Voids 1 1 Objective General Appearance: cachetic, thin EENT: PERRL/EOMI, normal ENT inspection, TMs normal Neck: non-tender, normal alignment, supple Cardiovascular: normal peripheral pulses, normal rate, regularly irregular, no gallop/murmur, no JVD Respiratory/Chest: chest wall non-tender, respiratory distress, crackles/rales , rhonchi - bilaterally, expiratory wheezing Abdomen: normal bowel sounds, non tender, soft, no organomegaly, no mass Extremities: normal range of motion, non-tender Neurologic: windows systems admin II-XII grossly normal, no motor/sensory deficits Skin: normal pigmentation, warm/dry Assessment/Plan Problem List: (1) Atrial fibrillation Assessment & Plan: Episode last pm of atrial fibrillation with rapid ventricular rate-see cardiology note. Cont amiodarone and eliquis (2) Hypothyroidism (3) Breast cancer Assessment & Plan: S/P resection and radiation tx (4) Renal cancer Assessment & Plan: S/P resection. (5) COPD exacerbation Assessment & Plan: D/C IV solumedrol; start oral prednisone taper. Continue theophylline per pulmonary. Cont spiriva and symbicort. (6) tremor, postural probably 2/2 polypharmacy/steroids (7) Hypoxia (8) Dyspnea (9) Cough Assessment & Plan: Repeat CXR today. Status: not improved Assessment/Plan Discharge planning: [facility] Sep 25, 2016 15:23
--- NOTE | 2016-09-25 16:24 | Cardiac Electrophysiology PN ---
Assessment/Plan Assessment/Plan 1. Paroxysmal atrial fibrillation. In and out of atrial fib. Continue Eliquis 2.5 mg b.i.d. and amiodarone to 200 mg daily. Off beta-blockers for chronic obstructive pulmonary disease.In SR today. RAQUEL Morel regarding decreasing the dose of beta agonists. 2. Diastolic congestive heart failure, on Lasix 20 mg every day. 3. Exacerbation of chronic obstructive pulmonary disease. On oxygen and Symbicort as well as Solu-Medrol per Dr. Morel 4. Hyperlipidemia, on Lipitor. 5. Lower extremity deep vein thrombosis. on Eliquis . 6. Nausea and Vomiting. RAQUEL RN, Dr Morel and daughter Subjective Subjective Transferred to [facility] for atrial fib with RVR but converted to SR.Daughter at bedside. Objective Last 24 Hour Vital Signs Date Time Temp Pulse Resp B/P Pulse Ox O2 Delivery O2 Flow Rate FiO2 09/25/16 15:16 97.7 74 18 121/61 93 Nasal Cannula 2.5 09/25/16 11:48 71 09/25/16 11:23 97.0 74 18 119/46 92 Nasal Cannula 2.0 09/25/16 08:17 81 09/25/16 07:51 Nasal Cannula 2.0 28 09/25/16 07:50 92 Nasal Cannula 2.0 28 09/25/16 07:43 97.7 71 18 138/67 91 Nasal Cannula 2.0 09/25/16 04:00 97.9 70 19 117/53 95 Nasal Cannula 2.0 09/25/16 04:00 62 09/25/16 00:00 97.9 74 22 131/68 92 Nasal Cannula 2.0 09/24/16 23:00 65 09/24/16 20:00 98.4 96 21 113/60 90 Nasal Cannula 2.0 09/24/16 19:46 92 Nasal Cannula 2.0 28 09/24/16 19:46 Nasal Cannula 2.0 28 09/24/16 16:57 97.0 117 21 118/83 94 Nasal Cannula 2.0 Intake and Output 09/24/16 09/25/16 19:00 07:00 Intake Total 480 ml 200 ml Output Total 200 ml Balance 280 ml 200 ml Intake Oral 480 ml 200 ml Output Urine Total 200 ml # Voids 1 1 Laboratory Tests Test 09/25/16 07:25 White Blood Count 9.5 K/UL (4.8-10.8) Red Blood Count 4.04 M/UL (4.20-5.40) L Hemoglobin 11.5 G/DL (12.0-16.0) L Hematocrit 36.7 % (37.0-47.0) L Mean Corpuscular Volume 91 FL (80-99) Mean Corpuscular Hemoglobin 28.5 PG (27.0-31.0) Mean Corpuscular Hemoglobin Concent 31.4 G/DL (32.0-36.0) L Red Cell Distribution Width 12.5 % (11.6-14.8) Platelet Count 294 K/UL (150-450) Mean Platelet Volume 10.2 FL (6.5-10.1) H Neutrophils (%) (Auto) 80.3 % (45.0-75.0) H Lymphocytes (%) (Auto) 7.1 % (20.0-45.0) L Monocytes (%) (Auto) 12.2 % (1.0-10.0) H Eosinophils (%) (Auto) 0.0 % (0.0-3.0) Basophils (%) (Auto) 0.3 % (0.0-2.0) Sodium Level 138 mEQ/L (135-145) Potassium Level 4.3 mEQ/L (3.4-4.9) Chloride Level 94 mEQ/L (98-107) L Carbon Dioxide Level 38 mEQ/L (20-30) H Anion Gap 6 (5-15) Blood Urea Nitrogen 23 mg/dL (7-23) Creatinine 1.0 mg/dL (0.5-0.9) H Estimat Glomerular Filtration Rate mL/min (>60) Glucose Level 87 mg/dL (74-106) Calcium Level 9.3 mg/dL (8.6-10.2) Microbiology Date/Time Source Procedure Growth Status 09/22/16 22:00 Urine,Clean Catch Urine Culture - Preliminary Gram Negative Bacillus 1 Gram Positive Cocci Resulted Objective HEAD AND NECK: Mild JVD. LUNGS: Coarse rhonchi. CARDIOVASCULAR: Irregular S1 and S2 with no gallop or murmur. ABDOMEN: Soft and nontender. EXTREMITIES: No edema. TODD HAINES Sep 25, 2016 16:24
--- NOTE | 2016-09-25 17:38 | Physician Query ---
PLEASE COMPLETE THE DOCUMENT BEFORE SIGNING Dear Dr. Arizmendi Date: 09/25/2016 Telecommunications Engineer/CDS Name: __Galindo Jenkins MD Telecommunications Engineer / CDS Phone #__[phone] ___ Exercise your independent professional judgment when responding to query. Question asked do not imply a particular answer is desired/expected Clinical Documentation States: "Diastolic congestive heart failure" documented in TODD HAINES M.D.'s Progress Notes Diuretic _Lasix___ Echocardiogram: Left ventricular ejection fraction estimated to be 55-60 %. Please Clarify: Acuity [X] Acute [] Chronic [] Acute on Chronic Type [] Systolic [X] Diastolic [] Systolic & Diastolic (Combined) [] Left Heart failure [] Other: Etiology [] CHF due to Hypertension [] Cardiomyopathy [] Valvular Heart Disease [] Coronary Artery Disease [] Unable to determine [X] Other: __Atrial Fibrillation Condition Present on Admission: [X] Yes [] No []Clinically Undeterminable Please also document in your Progress Notes and/or Discharge Summary and indicate if the condition was present on admission. Minh Delgado MD Date & Time [facility]
--- NOTE | 2016-09-25 18:05 | Pulmonology Progress Note ---
Assessment/Plan Problems: (1) COPD exacerbation (2) Cor pulmonale (3) Hypoxia Assessment/Plan po steroids taper fast theophyline on hold b/o tachycardia IV antibiotics check sputum titrate fio2 to sat of 92% heart rate controlled dc home in am( probably) Subjective ROS Limited/Unobtainable: No Interval Events: converted to sinus Constitutional: Reports: no symptoms HEENT: Repors: no symptoms Allergies: Coded Allergies: IODINE (Verified Allergy, Unknown, 09/18/16) PENICILLINS (Unverified Allergy, Unknown, 09/18/16) SULFACETAMIDE (Verified Allergy, Unknown, 09/18/16) Objective Last 24 Hour Vital Signs Date Time Temp Pulse Resp B/P Pulse Ox O2 Delivery O2 Flow Rate FiO2 09/25/16 15:16 97.7 74 18 121/61 93 Nasal Cannula 2.5 09/25/16 15:04 70 09/25/16 11:48 71 09/25/16 11:23 97.0 74 18 119/46 92 Nasal Cannula 2.0 09/25/16 08:17 81 09/25/16 07:51 Nasal Cannula 2.0 28 09/25/16 07:50 92 Nasal Cannula 2.0 28 09/25/16 07:43 97.7 71 18 138/67 91 Nasal Cannula 2.0 09/25/16 04:00 97.9 70 19 117/53 95 Nasal Cannula 2.0 09/25/16 04:00 62 09/25/16 00:00 97.9 74 22 131/68 92 Nasal Cannula 2.0 09/24/16 23:00 65 09/24/16 20:00 98.4 96 21 113/60 90 Nasal Cannula 2.0 09/24/16 19:46 92 Nasal Cannula 2.0 28 09/24/16 19:46 Nasal Cannula 2.0 28 Intake and Output 09/24/16 09/25/16 19:00 07:00 Intake Total 480 ml 200 ml Output Total 200 ml Balance 280 ml 200 ml Intake Oral 480 ml 200 ml Output Urine Total 200 ml # Voids 1 1 Objective General Appearance: WD/WN, no apparent distress Lines, tubes and drains: peripheral HEENT: normocephalic, atraumatic Neck: non-tender, supple Respiratory/Chest: chest wall non-tender, decreased breath sounds Cardiovascular/Chest: normal peripheral pulses, normal rate Abdomen: normal bowel sounds Genitourinary/Rectal: normal genital exam Extremities: normal range of motion Microbiology Date/Time Source Procedure Growth Status 09/22/16 22:00 Urine,Clean Catch Urine Culture - Preliminary Gram Negative Bacillus 1 Gram Positive Cocci Resulted Laboratory Tests 09/25/16 07:25: White Blood Count 9.5, Red Blood Count 4.04L, Hemoglobin 11.5L, Hematocrit 36.7L , Mean Corpuscular Volume 91, Mean Corpuscular Hemoglobin 28.5, Mean Corpuscular Hemoglobin Concent 31.4L, Red Cell Distribution Width 12.5, Platelet Count 294, Mean Platelet Volume 10.2H, Neutrophils (%) (Auto) 80.3H, Lymphocytes (%) (Auto) 7.1L, Monocytes (%) (Auto) 12.2H, Eosinophils (%) (Auto) 0.0, Basophils (%) (Auto) 0.3, Sodium Level 138, Potassium Level 4.3, Chloride Level 94L, Carbon Dioxide Level 38H, Anion Gap 6, Blood Urea Nitrogen 23, Creatinine 1.0H, Estimat Glomerular Filtration Rate , Glucose Level 87, Calcium Level 9.3 Current Medications Medications (Trade) Dose Ordered Sig/Maddy Route PRN Reason Start Time Stop Time Status Last Admin Dose Admin Amiodarone HCl (Cordarone) 200 mg DAILY ORAL 09/25/16 09:00 10/25/16 08:59 09/25/16 09:56 Apixaban (Eliquis) 2.5 mg Q12HR ORAL 09/24/16 21:00 10/24/16 20:59 09/25/16 09:56 Atorvastatin Calcium (Lipitor) 10 mg BEDTIME ORAL 09/24/16 21:00 10/24/16 20:59 09/24/16 21:29 Budesonide/ Formoterol Fumarate (Symbicort 160/ 4.5) 2 puff Q12HR INH 09/24/16 21:00 10/24/16 20:59 09/25/16 10:08 Buspirone HCl (Buspar) 15 mg TID ORAL 09/25/16 09:00 10/25/16 08:59 09/25/16 17:36 Estrogens Conjugated (Premarin Vag Cream W/JUAN) 1 applic MoWeFr@2100 VAGIN 09/24/16 21:00 10/24/16 20:59 09/24/16 21:29 Furosemide (Lasix) 20 mg DAILY ORAL 09/25/16 09:00 10/25/16 08:59 09/25/16 09:54 Gabapentin (Neurontin) 100 mg BID PRN ORAL NEUROPATHIC PAIN 09/25/16 09:00 10/25/16 08:59 09/25/16 11:32 Lactobacillus Acidophilus (Culturelle) 1 tab DAILY ORAL 09/25/16 09:00 10/25/16 08:59 09/25/16 09:57 Levofloxacin (Levaquin) 50 ml @ 50 mls/hr Q24H IVPB 09/25/16 13:00 10/02/16 12:59 09/25/16 13:49 Magnesium Hydroxide (Mom) 30 ml BID PRN ORAL Constipation 09/25/16 09:00 10/25/16 08:59 Magnesium Oxide (Mag-Ox 400mg) 400 mg DAILY ORAL 09/25/16 09:00 10/25/16 08:59 09/25/16 09:56 Mirtazapine (Remeron) 15 mg BEDTIME ORAL 09/24/16 21:00 10/24/16 20:59 09/24/16 21:29 Multivitamins Therapeutic (Therapeutic Multivitamin) 1 ea DAILY ORAL 09/25/16 09:00 10/25/16 08:59 09/25/16 09:57 Prednisone (predniSONE) 60 mg Taper DAILY ORAL 09/25/16 09:00 10/01/16 08:59 09/25/16 09:55 Promethazine HCl/ Codeine (Phenergan with Codeine) 5 ml Q4H PRN ORAL For Cough 09/24/16 20:30 10/24/16 20:29 Ranitidine HCl (Zantac) 150 mg BEDTIME ORAL 09/24/16 21:00 10/24/16 20:59 09/24/16 21:28 Sodium Chloride ([place] Nasal [place]) 2 spray BID NASAL 09/25/16 09:00 10/25/16 08:59 09/25/16 17:35 Tiotropium [place] (Spiriva Inhaler) 1 puff DAILY INH 09/25/16 09:00 10/25/16 08:59 09/25/16 12:04 Vitamin D (Vitamin D) 1,000 intlu DAILY ORAL 09/25/16 09:00 10/25/16 08:59 09/25/16 09:56 SABRINA GOLDBERG Sep 25, 2016 18:05
[2016-09-25 20:00] VITALS: BP 135/58
[2016-09-25] MEDS ORDERED: Ipratropium 0.02% Inh Soln 2.5ml UD HHN PRN (21:30)
[2016-09-26] VITALS: BP 114/50
[2016-09-26 04:00] VITALS: BP 120/57
[2016-09-26 07:31] LABS: BASOPHILS % (AUTO) 0.6 % (0.0-2.0); EOSINOPHILS % (AUTO) 0.2 % (0.0-3.0); LYMPHOCYTES % (AUTO) 8.4 % (20.0-45.0); MEAN CORPUSCULAR HEMOGLOBIN 29.3 PG (27.0-31.0); MEAN CORPUSCULAR HGB CONC 31.7 G/DL (32.0-36.0); MEAN CORPUSCULAR VOLUME 92 FL (80-99); MEAN PLATELET VOLUME 10.2 FL (6.5-10.1); MONOCYTES % (AUTO) 10.1 % (1.0-10.0); NEUTROPHILS % (AUTO) 80.6 % (45.0-75.0); PLATELET COUNT 288 K/UL (150-450); RED BLOOD COUNT 3.71 M/UL (4.20-5.40); RED CELL DISTRIBUTION WIDTH 12.8 % (11.6-14.8); WHITE BLOOD COUNT 10.2 K/UL (4.8-10.8)
[2016-09-26 07:43] VITALS: BP 119/59
[2016-09-26 07:52] LABS: ANION GAP 7 (5-15); CALCIUM 9.1 mg/dL (8.6-10.2); CARBON DIOXIDE 38 mEQ/L (20-30); CHLORIDE 97 mEQ/L (98-107); CREATININE 0.9 mg/dL (0.5-0.9); HEMOLYSIS 4; POTASSIUM 4.2 mEQ/L (3.4-4.9); SODIUM 142 mEQ/L (135-145)
[2016-09-26] MEDS: Ocean Nasal Spray 45ml NASAL SCH ×2 (08:24→18:00)
[2016-09-26] MEDS: PredniSONE 20mg tab ORAL SCH (08:25)
[2016-09-26] MEDS: Amiodarone 200mg tab ORAL SCH (08:25)
[2016-09-26] MEDS: Lactobacillus-GG tablet ORAL SCH (08:25)
[2016-09-26] MEDS: Multivitamin w/Minerals tab ORAL SCH (08:25)
[2016-09-26] MEDS: Eliquis 2.5mg tablet ORAL SCH (08:26)
[2016-09-26] MEDS: Vitamin D 1000 IU Tab ORAL SCH (08:26)
[2016-09-26] MEDS: BusPIRone 10mg Tab ORAL SCH ×3 (08:26→18:00)
[2016-09-26] MEDS: Magnesium Oxide 400mg tab ORAL SCH (08:26)
[2016-09-26] MEDS ORDERED: NS 275ml ONE (09:53)
[2016-09-26] MEDS ORDERED: Tubing IV Secondary IV ONE (09:53)
[2016-09-26 11:35] VITALS: BP 111/61
--- NOTE | 2016-09-26 12:38 | Pulmonology Progress Note ---
Assessment/Plan Problems: (1) COPD exacerbation (2) Cor pulmonale (3) Hypoxia Assessment/Plan po steroids taper fast theophyline on hold b/o tachycardia IV antibiotics check sputum titrate fio2 to sat of 92% heart rate controlled pt wants to go to [facility] Subjective ROS Limited/Unobtainable: No Constitutional: Reports: no symptoms HEENT: Repors: no symptoms Allergies: Coded Allergies: IODINE (Verified Allergy, Unknown, 09/18/16) PENICILLINS (Unverified Allergy, Unknown, 09/18/16) SULFACETAMIDE (Verified Allergy, Unknown, 09/18/16) Objective Last 24 Hour Vital Signs Date Time Temp Pulse Resp B/P Pulse Ox O2 Delivery O2 Flow Rate FiO2 09/26/16 11:35 97.5 71 20 111/61 97 Nasal Cannula 2.0 09/26/16 08:13 75 20 100 Nasal Cannula 2.0 28 09/26/16 08:00 69 20 97 Nasal Cannula 2.0 28 09/26/16 07:50 Nasal Cannula 2.0 28 09/26/16 07:49 97 Nasal Cannula 2.0 28 09/26/16 07:43 97.3 73 20 119/59 95 Nasal Cannula 2.0 09/26/16 04:00 98.8 64 18 120/57 96 Nasal Cannula 2.0 09/26/16 04:00 61 09/26/16 00:00 97.9 69 18 114/50 96 Nasal Cannula 2.0 09/26/16 00:00 63 09/25/16 20:24 Nasal Cannula 2.0 28 09/25/16 20:23 93 Nasal Cannula 2.0 28 09/25/16 20:00 80 09/25/16 20:00 96.6 86 18 135/58 93 Nasal Cannula 2.0 09/25/16 15:16 97.7 74 18 121/61 93 Nasal Cannula 2.5 09/25/16 15:04 70 Intake and Output 09/25/16 09/26/16 19:00 07:00 Intake Total 510 ml 500 ml Output Total 500 ml Balance 10 ml 500 ml Intake Oral 460 ml 500 ml IV Total 50 ml Output Urine Total 500 ml # Voids 1 1 # Bowel Movements 2 Objective General Appearance: WD/WN, no apparent distress Lines, tubes and drains: peripheral HEENT: normocephalic, atraumatic Neck: non-tender, supple Respiratory/Chest: chest wall non-tender, decreased breath sounds Cardiovascular/Chest: normal peripheral pulses, normal rate Abdomen: normal bowel sounds Genitourinary/Rectal: normal genital exam Extremities: normal range of motion Laboratory Tests 09/26/16 04:00: Triiodothyronine (T3) Uptake [Pending] 09/26/16 05:50: White Blood Count 10.2, Red Blood Count 3.71L, Hemoglobin 10.9L, Hematocrit 34.2L, Mean Corpuscular Volume 92, Mean Corpuscular Hemoglobin 29.3, Mean Corpuscular Hemoglobin Concent 31.7L, Red Cell Distribution Width 12.8, Platelet Count 288, Mean Platelet Volume 10.2H, Neutrophils (%) (Auto) 80.6H, Lymphocytes (%) (Auto) 8.4L, Monocytes (%) (Auto) 10.1H, Eosinophils (%) (Auto) 0.2, Basophils (%) (Auto) 0.6, Sodium Level 142, Potassium Level 4.2, Chloride Level 97L, Carbon Dioxide Level 38H, Anion Gap 7, Blood Urea Nitrogen 22, Creatinine 0.9, Estimat Glomerular Filtration Rate , Glucose Level 84, Calcium Level 9.1, Thyroid Stimulating Hormone (TSH) 0.210L, Free Thyroxine 2.45H, Total Triiodothyronine 0.47L Current Medications Medications (Trade) Dose Ordered Sig/Maddy Route PRN Reason Start Time Stop Time Status Last Admin Dose Admin Amiodarone HCl (Cordarone) 200 mg DAILY ORAL 09/25/16 09:00 10/25/16 08:59 09/26/16 08:25 Apixaban (Eliquis) 2.5 mg Q12HR ORAL 09/24/16 21:00 10/24/16 20:59 09/26/16 08:26 Atorvastatin Calcium (Lipitor) 10 mg BEDTIME ORAL 09/24/16 21:00 10/24/16 20:59 09/25/16 20:45 Budesonide/ Formoterol Fumarate (Symbicort 160/ 4.5) 2 puff Q12HR INH 09/24/16 21:00 10/24/16 20:59 09/26/16 08:11 Buspirone HCl (Buspar) 15 mg TID ORAL 09/25/16 09:00 10/25/16 08:59 09/26/16 08:26 Estrogens Conjugated (Premarin Vag Cream W/JUAN) 1 applic MoWeFr@2100 VAGIN 09/24/16 21:00 10/24/16 20:59 09/24/16 21:29 Furosemide (Lasix) 20 mg DAILY ORAL 09/25/16 09:00 10/25/16 08:59 09/26/16 08:24 Gabapentin (Neurontin) 100 mg BID PRN ORAL NEUROPATHIC PAIN 09/25/16 09:00 10/25/16 08:59 09/25/16 11:32 Ipratropium [place] (Atrovent) 500 mcg Q4H PRN HHN Shortness of Breath 09/25/16 21:30 09/30/16 21:29 09/26/16 08:11 Lactobacillus Acidophilus (Culturelle) 1 tab DAILY ORAL 09/25/16 09:00 10/25/16 08:59 09/26/16 08:25 Levofloxacin (Levaquin) 50 ml @ 50 mls/hr Q24H IVPB 09/25/16 13:00 10/02/16 12:59 09/25/16 13:49 Magnesium Hydroxide (Mom) 30 ml BID PRN ORAL Constipation 09/25/16 09:00 10/25/16 08:59 09/25/16 20:46 Magnesium Oxide (Mag-Ox 400mg) 400 mg DAILY ORAL 09/25/16 09:00 10/25/16 08:59 09/26/16 08:26 Mirtazapine (Remeron) 15 mg BEDTIME ORAL 09/24/16 21:00 10/24/16 20:59 09/25/16 20:46 Multivitamins Therapeutic (Therapeutic Multivitamin) 1 ea DAILY ORAL 09/25/16 09:00 10/25/16 08:59 09/26/16 08:25 Prednisone (predniSONE) 50 mg Taper DAILY ORAL 09/25/16 09:00 10/01/16 08:59 09/26/16 08:25 Promethazine HCl/ Codeine (Phenergan with Codeine) 5 ml Q4H PRN ORAL For Cough 09/24/16 20:30 10/24/16 20:29 Ranitidine HCl (Zantac) 150 mg BEDTIME ORAL 09/24/16 21:00 10/24/16 20:59 09/25/16 20:46 Sodium Chloride ([place] Nasal [place]) 2 spray BID NASAL 09/25/16 09:00 10/25/16 08:59 09/26/16 08:24 Tiotropium [place] (Spiriva Inhaler) 1 puff DAILY INH 09/25/16 09:00 10/25/16 08:59 09/26/16 08:01 Vitamin D (Vitamin D) 1,000 intlu DAILY ORAL 09/25/16 09:00 10/25/16 08:59 09/26/16 08:26 SABRINA GOLDBERG Sep 26, 2016 12:38
[2016-09-26] MEDS ORDERED: PREDNISONE20 MG ORAL (12:39)
--- NOTE | 2016-09-26 15:10 | Cardiac Electrophysiology PN ---
Assessment/Plan Assessment/Plan 1. Paroxysmal atrial fibrillation.In SR today on Eliquis 5 mg b.i.d. and amiodarone 200 mg daily. 2. Diastolic congestive heart failure, on Lasix 20 mg every day. 3. Exacerbation of chronic obstructive pulmonary disease. On oxygen and Symbicort as well as Solu-Medrol per Dr. Morel 4. Hyperlipidemia, on Lipitor. 5. Lower extremity deep vein thrombosis. on Eliquis . 6. Nausea and Vomiting. DW RN, Dr Morel and daughter OK to DC Subjective Subjective [place] in SR.Daughter at bedside.No chest pain or SOB. Objective Last 24 Hour Vital Signs Date Time Temp Pulse Resp B/P Pulse Ox O2 Delivery O2 Flow Rate FiO2 09/26/16 11:35 97.5 71 20 111/61 97 Nasal Cannula 2.0 09/26/16 08:13 75 20 100 Nasal Cannula 2.0 28 09/26/16 08:00 69 20 97 Nasal Cannula 2.0 28 09/26/16 07:50 Nasal Cannula 2.0 28 09/26/16 07:49 97 Nasal Cannula 2.0 28 09/26/16 07:43 97.3 73 20 119/59 95 Nasal Cannula 2.0 09/26/16 04:00 98.8 64 18 120/57 96 Nasal Cannula 2.0 09/26/16 04:00 61 09/26/16 00:00 97.9 69 18 114/50 96 Nasal Cannula 2.0 09/26/16 00:00 63 09/25/16 20:24 Nasal Cannula 2.0 28 09/25/16 20:23 93 Nasal Cannula 2.0 28 09/25/16 20:00 80 09/25/16 20:00 96.6 86 18 135/58 93 Nasal Cannula 2.0 09/25/16 15:16 97.7 74 18 121/61 93 Nasal Cannula 2.5 Intake and Output 09/25/16 09/26/16 19:00 07:00 Intake Total 510 ml 500 ml Output Total 500 ml Balance 10 ml 500 ml Intake Oral 460 ml 500 ml IV Total 50 ml Output Urine Total 500 ml # Voids 1 1 # Bowel Movements 2 Laboratory Tests Test 09/26/16 04:00 09/26/16 05:50 Triiodothyronine (T3) Uptake Pending White Blood Count 10.2 K/UL (4.8-10.8) Red Blood Count 3.71 M/UL (4.20-5.40) L Hemoglobin 10.9 G/DL (12.0-16.0) L Hematocrit 34.2 % (37.0-47.0) L Mean Corpuscular Volume 92 FL (80-99) Mean Corpuscular Hemoglobin 29.3 PG (27.0-31.0) Mean Corpuscular Hemoglobin Concent 31.7 G/DL (32.0-36.0) L Red Cell Distribution Width 12.8 % (11.6-14.8) Platelet Count 288 K/UL (150-450) Mean Platelet Volume 10.2 FL (6.5-10.1) H Neutrophils (%) (Auto) 80.6 % (45.0-75.0) H Lymphocytes (%) (Auto) 8.4 % (20.0-45.0) L Monocytes (%) (Auto) 10.1 % (1.0-10.0) H Eosinophils (%) (Auto) 0.2 % (0.0-3.0) Basophils (%) (Auto) 0.6 % (0.0-2.0) Sodium Level 142 mEQ/L (135-145) Potassium Level 4.2 mEQ/L (3.4-4.9) Chloride Level 97 mEQ/L (98-107) L Carbon Dioxide Level 38 mEQ/L (20-30) H Anion Gap 7 (5-15) Blood Urea Nitrogen 22 mg/dL (7-23) Creatinine 0.9 mg/dL (0.5-0.9) Estimat Glomerular Filtration Rate mL/min (>60) Glucose Level 84 mg/dL (74-106) Calcium Level 9.1 mg/dL (8.6-10.2) Thyroid Stimulating Hormone (TSH) 0.210 uIU/mL (0.300-4.500) Free Thyroxine 2.45 ng/dL (0.86-1.85) H Total Triiodothyronine 0.47 ng/mL (0.80-2.00) L Objective HEAD AND NECK: Mild JVD. LUNGS: Coarse rhonchi. CARDIOVASCULAR: Irregular S1 and S2 with no gallop or murmur. ABDOMEN: Soft and nontender. EXTREMITIES: No edema. TODD HAINES Sep 26, 2016 15:10
--- NOTE | 2016-09-26 16:28 | Infectious Diseases Prog Note ---
Assessment/Plan Assessment/Plan A: The patient is a 76-year-old female with UTI, probable UCx : GNR and Enterococci COPD exacerbation Atrial fibrillation Hypothyroidism History of right breast cancer History of right renal cancer Status post right breast lumpectomy History of right nephrectomy Thyroidectomy Cholecystectomy PLAN: on Levaquin d # 3 / 5 days ( COPD coverage and coverage ) ok to DC on oral Levaquin to complete the course , from ID Standpoint CBC and BMP Urine culture Monitor chest x-ray Subjective Constitutional: Denies: anorexia, chills, drenching sweats, fatigue, fever, no symptoms, other Allergies: Coded Allergies: IODINE (Verified Allergy, Unknown, 09/18/16) PENICILLINS (Unverified Allergy, Unknown, 09/18/16) SULFACETAMIDE (Verified Allergy, Unknown, 09/18/16) Objective Vital Signs Last 24 Hour Vital Signs Date Time Temp Pulse Resp B/P Pulse Ox O2 Delivery O2 Flow Rate FiO2 09/26/16 11:35 97.5 71 20 111/61 97 Nasal Cannula 2.0 09/26/16 08:13 75 20 100 Nasal Cannula 2.0 28 09/26/16 08:00 69 20 97 Nasal Cannula 2.0 28 09/26/16 07:50 Nasal Cannula 2.0 28 09/26/16 07:49 97 Nasal Cannula 2.0 28 09/26/16 07:43 97.3 73 20 119/59 95 Nasal Cannula 2.0 09/26/16 04:00 98.8 64 18 120/57 96 Nasal Cannula 2.0 09/26/16 04:00 61 09/26/16 00:00 97.9 69 18 114/50 96 Nasal Cannula 2.0 09/26/16 00:00 63 09/25/16 20:24 Nasal Cannula 2.0 28 09/25/16 20:23 93 Nasal Cannula 2.0 28 09/25/16 20:00 80 09/25/16 20:00 96.6 86 18 135/58 93 Nasal Cannula 2.0 Height (Feet): 5 Height (Inches): 2.00 Weight (Pounds): 100 HEENT: anicteric Respiratory/Chest: lungs clear Cardiovascular: regular rhythm Abdomen: no organomegaly Laboratory Tests Test 09/26/16 04:00 09/26/16 05:50 Triiodothyronine (T3) Uptake Pending White Blood Count 10.2 K/UL (4.8-10.8) Red Blood Count 3.71 M/UL (4.20-5.40) L Hemoglobin 10.9 G/DL (12.0-16.0) L Hematocrit 34.2 % (37.0-47.0) L Mean Corpuscular Volume 92 FL (80-99) Mean Corpuscular Hemoglobin 29.3 PG (27.0-31.0) Mean Corpuscular Hemoglobin Concent 31.7 G/DL (32.0-36.0) L Red Cell Distribution Width 12.8 % (11.6-14.8) Platelet Count 288 K/UL (150-450) Mean Platelet Volume 10.2 FL (6.5-10.1) H Neutrophils (%) (Auto) 80.6 % (45.0-75.0) H Lymphocytes (%) (Auto) 8.4 % (20.0-45.0) L Monocytes (%) (Auto) 10.1 % (1.0-10.0) H Eosinophils (%) (Auto) 0.2 % (0.0-3.0) Basophils (%) (Auto) 0.6 % (0.0-2.0) Sodium Level 142 mEQ/L (135-145) Potassium Level 4.2 mEQ/L (3.4-4.9) Chloride Level 97 mEQ/L (98-107) L Carbon Dioxide Level 38 mEQ/L (20-30) H Anion Gap 7 (5-15) Blood Urea Nitrogen 22 mg/dL (7-23) Creatinine 0.9 mg/dL (0.5-0.9) Estimat Glomerular Filtration Rate mL/min (>60) Glucose Level 84 mg/dL (74-106) Calcium Level 9.1 mg/dL (8.6-10.2) Thyroid Stimulating Hormone (TSH) 0.210 uIU/mL (0.300-4.500) Free Thyroxine 2.45 ng/dL (0.86-1.85) H Total Triiodothyronine 0.47 ng/mL (0.80-2.00) L Current Medications Medications (Trade) Dose Ordered Sig/Maddy Route PRN Reason Start Time Stop Time Status Last Admin Dose Admin Amiodarone HCl (Cordarone) 200 mg DAILY ORAL 09/25/16 09:00 10/25/16 08:59 09/26/16 08:25 Apixaban (Eliquis) 5 mg Q12HR ORAL 09/26/16 21:00 10/26/16 20:59 Atorvastatin Calcium (Lipitor) 10 mg BEDTIME ORAL 09/24/16 21:00 10/24/16 20:59 09/25/16 20:45 Budesonide/ Formoterol Fumarate (Symbicort 160/ 4.5) 2 puff Q12HR INH 09/24/16 21:00 10/24/16 20:59 09/26/16 08:11 Buspirone HCl (Buspar) 15 mg TID ORAL 09/25/16 09:00 10/25/16 08:59 09/26/16 13:07 Estrogens Conjugated (Premarin Vag Cream W/JUAN) 1 applic MoWeFr@2100 VAGIN 09/24/16 21:00 10/24/16 20:59 09/24/16 21:29 Furosemide (Lasix) 20 mg DAILY ORAL 09/25/16 09:00 10/25/16 08:59 09/26/16 08:24 Gabapentin (Neurontin) 100 mg BID PRN ORAL NEUROPATHIC PAIN 09/25/16 09:00 10/25/16 08:59 09/26/16 14:16 Ipratropium [place] (Atrovent) 500 mcg Q4H PRN HHN Shortness of Breath 09/25/16 21:30 09/30/16 21:29 09/26/16 08:11 Lactobacillus Acidophilus (Culturelle) 1 tab DAILY ORAL 09/25/16 09:00 10/25/16 08:59 09/26/16 08:25 Levofloxacin (Levaquin) 50 ml @ 50 mls/hr Q24H IVPB 09/25/16 13:00 10/02/16 12:59 09/26/16 13:07 Magnesium Hydroxide (Mom) 30 ml BID PRN ORAL Constipation 09/25/16 09:00 10/25/16 08:59 09/25/16 20:46 Magnesium Oxide (Mag-Ox 400mg) 400 mg DAILY ORAL 09/25/16 09:00 10/25/16 08:59 09/26/16 08:26 Mirtazapine (Remeron) 15 mg BEDTIME ORAL 09/24/16 21:00 10/24/16 20:59 09/25/16 20:46 Multivitamins Therapeutic (Therapeutic Multivitamin) 1 ea DAILY ORAL 09/25/16 09:00 10/25/16 08:59 09/26/16 08:25 Prednisone (predniSONE) 50 mg Taper DAILY ORAL 09/25/16 09:00 10/01/16 08:59 09/26/16 08:25 Promethazine HCl/ Codeine (Phenergan with Codeine) 5 ml Q4H PRN ORAL For Cough 09/24/16 20:30 10/24/16 20:29 Ranitidine HCl (Zantac) 150 mg BEDTIME ORAL 09/24/16 21:00 10/24/16 20:59 09/25/16 20:46 Sodium Chloride ([place] Nasal [place]) 2 spray BID NASAL 09/25/16 09:00 10/25/16 08:59 09/26/16 08:24 Tiotropium [place] (Spiriva Inhaler) 1 puff DAILY INH 09/25/16 09:00 10/25/16 08:59 09/26/16 08:01 Vitamin D (Vitamin D) 1,000 intlu DAILY ORAL 09/25/16 09:00 10/25/16 08:59 09/26/16 08:26 EKTA DEMPSEY M.D. Sep 26, 2016 16:28
[2016-09-26 16:30] VITALS: BP 125/45
[2016-09-26] MEDS ORDERED: Eliquis 2.5mg tablet ORAL SCH (21:00)
--- NOTE | 2016-09-27 15:48 | Discharge Summary ---
Discharge Summary Hospital Course Date of Admission Sep 18, 2016 at 14:58 Date of Discharge Sep 26, 2016 at 18:14 Admitting Diagnosis copd exacerbation HPI Cindy Gann is a 76 year old female who was admitted on Sep 18, 2016 at 14:58 for Chronic Obstructive Pulmonary Disease Exacerbation Hospital Course [id number] Discharge Discharge Disposition Patient was discharged to SNF/Subacute Facility(03) Discharge Diagnoses: Estefany Montes NP Sep 27, 2016 15:48
--- NOTE | 2016-09-27 22:48 | Discharge Summary 2 SIG ---
DATE OF ADMISSION: 09/18/2016 DATE OF DISCHARGE: 09/26/2016 ATTENDING DOCTOR: Reynaldo Oakley M.D. CONSULTANTS: 1. Yamil Morel M.D. 2. Robert Moraes M.D. 3. Giovanni Huerta M.D. 4. Chris Patel M.D. BRIEF HOSPITAL COURSE: The patient is a 76-year-old female with history of COPD, who presented to ED for complaints of shortness of breath. The patient was recently admitted to [facility] in 08/2011 for new onset of atrial fibrillation and was discharged to [facility] [place]. She has a 3 year history of COPD and has been on continuous oxygen use. Apparently, she began to experience shortness of breath and low oxygen saturation down to 60s. She was then transported to [facility] for further evaluation and was admitted for acute on COPD exacerbation. Dr. Morel was consulted. The patient was given oxygen support and was given theophylline, IV antibiotics and IV steroids. Dr. Patel was consulted for evaluation of new onset intermittent irregular jerking of the upper and lower extremities predominantly in the lower extremity affecting her ambulation causing her fear of fall. A new onset of postural tremor was probably drug induced related to polypharmacy. 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 Ney Beckford. The patient has been on Eliquis 2.5 mg b.i.d. and was on amiodarone. Echocardiogram done showed left ventricular ejection fraction of 55% to 60% and mild pulmonary hypertension with diastolic dysfunction. Venous duplex showed an acute nonocclusive thrombus in the superficial femoral to the popliteal vein on the right. She was continued on the Eliquis. Dr. Huerta was consulted. Urine culture showed growth of gram-negative rods and Enterococci. She was given Levaquin. She was also continued on Lipitor and Lasix 20 mg everyday. Steroids was eventually tapered to p.o. and the [facility] FINAL DIAGNOSES: 1. Acute chronic obstructive pulmonary disease exacerbation. 2. Atrial fibrillation with rapid ventricular response. 3. Hypothyroidism. 4. Breast cancer status post resection and radiation therapy. 5. Renal cancer status post resection. 6. Postural tremor probably secondary to polypharmacy. 7. Acute deep venous thrombosis. 8. Chronic diastolic congestive heart failure. 9. Hyperlipidemia. 10. Urinary tract infection with gram-negative rods and Enterococci. 11. Hypothyroidism. Minh Delgado M.D. I have been assigned to dictate discharge summary on this account and I was not involved in the patient's management. Estefany Montes N.P. DR: DAVID JOB#: [id number] CC:
--- NOTE | 2016-09-27 23:27 | Diagnostic Imaging Report ---
APPROVED REPORT CPT Code: 45108 Present Symptoms Shortness of breath Past History Pulmonary Embolism Risk Factors Cardiac Disease Prior Pulmonary Embolism RIGHT LEG: Venous imaging reveals acute, non-occlusive thrombus in the superficial femoral to the popliteal veins. Remainder of the deep venous system within normal limits. No evidence of thrombus in the calf veins. Greater saphenous vein also within normal limits. LEFT LEG: Venous imaging reveals acute thrombus in the common femoral and distal superficial femoral veins. Remainder of the deep venous system within normal limits. No evidence of thrombus in the calf veins. Greater saphenous vein also within normal limits. LINDSEY Madden was notified of abnormal results at 22:00 hrs.
== END 2016-09-26 18:14 | DRG 190 ==
LOC: EDBD 14:18 → EMR 14:30 → 4W 14:58 → EDBEDREQ 15:17 → 4W 22:06 → 2E 09-24 17:20
DX: J44.1 Chronic obstructive pulmonary disease with (acute) exacerbation (principal); I50.33 Acute on chronic diastolic (congestive) heart failure; I82.403 Acute embolism and thrombosis of unspecified deep veins of lower extremity, bilateral; I27.81 Cor pulmonale (chronic); N39.0 Urinary tract infection, site not specified; I48.0 Paroxysmal atrial fibrillation; G25.1 Drug-induced tremor; I10 Essential (primary) hypertension; B95.2 Enterococcus as the cause of diseases classified elsewhere; E78.5 Hyperlipidemia, unspecified; T50.905A Adverse effect of unspecified drugs, medicaments and biological substances, initial encounter; Z79.01 Long term (current) use of anticoagulants; R09.02 Hypoxemia; Z85.3 Personal history of malignant neoplasm of breast; Z85.528 Personal history of other malignant neoplasm of kidney; Z88.0 Allergy status to penicillin; Z88.2 Allergy status to sulfonamides; Z91.041 Radiographic dye allergy status; Z87.891 Personal history of nicotine dependence; B96.89 Other specified bacterial agents as the cause of diseases classified elsewhere; I25.10 Atherosclerotic heart disease of native coronary artery without angina pectoris; Z92.3 Personal history of irradiation; Z86.711 Personal history of pulmonary embolism; E89.0 Postprocedural hypothyroidism
CPT/HCPCS: 36415; 71010; 80048; 80053; 81001; 81003; 82550; 83605; 83880; 84439; 84443; 84480; 84484; 85007; 85025; 85610; 85730; 87081; 87086; 87181; 93005; 93306; 93970; 94640; 94760; J7620